=== PATIENT | male | born 1980 | race Caucasian/White ===

== ENCOUNTER 2020-05-24 18:08 | Emergency (ER) | payer MEDICARE, MEDICAID, SELFPAY ==
[2020-05-24 18:19] VITALS: BP 101/69; PULSE 77; RESP 18; TEMP 36.6; O2SAT 98; BMI 25.8
--- NOTE | 2020-05-24 18:24 | ECG_ITS ---
Test Reason : WEAKNESS Blood Pressure : / mmHG Vent. Rate : 067 BPM Atrial Rate : 441 BPM P-R Int : 000 ms QRS Dur : 114 ms QT Int : 426 ms P-R-T Axes : 000 210 128 degrees QTc Int : 450 ms Atrial fibrillation Right superior axis deviation Minimal voltage criteria for LVH, may be normal variant Nonspecific T wave abnormality Abnormal ECG When compared with ECG of 05-FEB-2020 22:57, Heart rate has decreased Referred By: Dolly Doyle Electronically Signed By:VLADIMIR REDMAN MD
--- NOTE | 2020-05-24 18:24 | XR_ITS ---
EXAMINATION: XR CHEST CLINICAL INFORMATION: History of situs inversus. Weakness. Dizziness. COMPARISON: None TECHNIQUE: 2 views of the chest were obtained. FINDINGS: Status post median sternotomy. Cardiac apex is on the right consistent with situs inversus. There is no acute abnormality. No pulmonary vascular congestion. No infiltrate or pleural effusion. There is no pneumothorax. XR/XR chest 2V IMPRESSION: No acute abnormality of chest.
--- NOTE | 2020-05-24 18:33 | ED.DIZZY ---
HPI - Dizziness General Chief Complaint: Dizziness Stated Complaint: weakness Time Seen by Provider: 05/24/20 18:12 Source: patient and EMS Mode of arrival: EMS Limitations: no limitations History of Present Illness HPI Narrative: 40 yo male with past medical history of dextrocardia, mitral valve replacement on coumadin, atrial fibrillation here with complaints of dizziness. Patient tells me he was sitting down stood up quickly and felt nausea, lightheadedness and like his body was shaking. No associated chest pain/palpitations/shortness of breath/abdominal pain or CM. On arrival the patient is feeling somewhat improved. He does have some mild nausea and feeling lightheaded but otherwise is feeling improved. MD elicited complaint: lightheadedness Onset (ago): hour(s) Timing: sudden onset Severity: mild Description: lightheadedness Context: change in medication History of similar symptoms: No Exacerbating factors: movement/ambulation and change in body position Relieving factors: nothing Associated symptoms: nausea Related Data Allergies Allergy/AdvReac Type Severity Reaction Status Date / Time Penicillins Allergy Unknown RASH,NAUSEA Verified 05/24/20 18:25 ,VOMITING Review of Systems Review of Systems: Yes all other systems are reviewed and are negative Constitutional: Constitutional: Reports no additional constitutional complaints, Denies body ache(s), Denies chills, Denies fever(s), Denies headache(s) and Denies weakness Eyes: Eyes: Reports no additional eye complaints and Denies change in vision ENT: Reports system reviewed and no additional complaints, except as documented, Reports dizziness, Denies headache(s), Denies nasal congestion, Denies nasal discharge and Denies neck pain Cardiovascular: Cardiovascular: Reports no additional cardiovascular complaints, Denies chest pain, Denies leg edema and Denies dyspnea Respiratory: Respiratory: Reports no additional respiratory complaints, Denies cough and Denies dyspnea Gastrointestinal: Gastrointestinal: Reports no additional gastrointestinal complaints, Denies abdominal pain, Denies diarrhea, Reports nausea and Denies vomiting Genitourinary: Genitourinary: Denies urinary incontinence Musculoskeletal: Musculoskeletal: Reports no additional musculoskeletal complaints, Denies back pain, Denies arthralgias, Denies joint swelling, Denies neck pain, Denies numbness and Denies tingling Integumentary/Breasts: Skin/Breast: Reports system reviewed and no additional complaints, except as docu and Denies rash Neurologic: Reports system reviewed and no additional complaints, except as documented, Denies Abnormal speech present, Reports dizziness, Denies headache(s), Denies numbness, Denies tingling and Denies weakness PMFSH Past Medical History Attestation statement: The following information was validated with the patient. Source: obtained from family and nursing notes reviewed Medical History Aortic valve disease Social History Social History Alcohol intake: never Smoking Status: Never smoker Use of substances other than those prescribed or required for medical reasons: No Advance Directives: No Advance Directives Information Provided: Yes Physical Exam Vital Signs: Vital Signs: Vital Signs Temp Pulse Resp BP Pulse Ox 05/24/20 21:00 60 17 117/54 L 99 05/24/20 19:25 78 108/66 05/24/20 19:23 81 111/62 05/24/20 18:19 97.9 F 77 18 101/69 98 Body Mass Index 25.8 Const: General: cooperative, healthy appearing, comfortable and no acute distress Orientation/consciousness: patient oriented x3 Limitations: no limitations HENMT: Head: Yes normal to inspection Ears: hearing grossly normal bilaterally General nose exam: Normal external nose present Face and sinus: Yes normal facial exam Mouth: Normal oral and palatal mucosa present Throat: Yes posterior oropharynx normal Eyes: General: appearance normal, both eyes and all related structures Pupils: Equal, round and reactive pupils present Neck: Neck: Yes normal visual inspection Chest: Chest palpation & inspection: normal inspection of the chest Resp: Effort & Inspection: normal respiratory effort Auscultation: clear to auscultation bilaterally Cardio: Rate: regular rate Rhythm: regular rhythm Peripheral pulses: Peripheral pulses 2+ throughout GI: Inspection: Yes normal to inspection Palpation (GI): Soft to palpation and nontender Auscultation: normal bowel sounds Back/Spine/Pelvis: Thoracic/Lumbar Spine: thoracic and lumbar spine normal to inspection Skin: General skin exam: no rashes or lesions noted Neuro: General: patient oriented x3, Normal light touch and pain sensation, no focal motor deficits and normal sensation to monofilament Cranial nerves: Yes CN's II-XII intact bilaterally, Yes Equal, round and reactive pupils present, Yes Bilaterally intact EOM present, Yes Nystagmus not present, Yes Normal facial strength present and Yes Midline tongue present Cognition (Neuro): normal cognition Speech: No Abnormal speech present Gait exam (Neuro): Normal gait present Motor exam (neuro): 5/5 motor strength present throughout Sensory Exam: Normal double simultaneous stimulation for sensation Deep tendon reflexes (DTR's): Right patellar reflex intensity grade: 2+ and Left patellar reflex intensity grade: 2+ Coordination: [id number] test normal and [id number] test normal Extrem: General: Yes normal to inspection Course Course Course Narrative: Pt here with lightheadedness with nausea with position changes. Neuro intact. Will check labs, EKG, CXR, orthostatics. 1944-Labs unremarkable. EKG shows afib with a rate <100. No changes. Orthostatics negative. Troponin just mildly elevated, will plan for repeat 3 hr. No chest pain. 2029- Patient tells me he was very anxious in regards to the election results today, told me he wasn't eating much today. Eating now, feeling improved. Requesting COVID testing. 2099-Sign out to [employer] pending repeat troponin. MDM - Dizziness MDM Narrative Medical decision making narrative: Considered orthostatic hypotension, anemia, electrolyte abnormality, ACS, hypoglycemia Less likely orthostatic hypotension with unremarkable orthostatic vital signs. Less likely anemia with normal differential. Less likely electrolyte abnormality with normal Bmp. Less likely ACS with no EKG changes, no chest pain and 2 troponins unchanged. May be hypoglycemia and patient is eating here with stable blood sugars Lab Data Result diagrams: 05/24/20 18:59 05/24/20 18:59 Labs: Lab Results 05/24/20 05/24/20 05/24/20 Range/Units 18:59 18:59 18:59 WBC 5.2 (4.8-10.8) X10*3/uL RBC 4.91 (4.60-5.80) X10*6/uL Hgb 13.3 L (14.0-18.0) g/dl Hct 40.5 L (42-52) % MCV 82.5 (80-98) fL MCH 27.1 (27.0-33.0) pg MCHC 32.8 (31.0-36.0) g/dl RDW 13.8 (11.0-16.0) % Plt Count 185 (160-400) X10*3/uL MPV 10.0 (9.4-12.4) fL Immature Gran % (Auto) 0.2 (0.0-0.4) % Neut % (Auto) 54.8 (45-73) % Lymph % (Auto) 29.6 (20-40) % [place] % (Auto) 11.9 H (2-11) % Eos % (Auto) 3.1 (0-4) % Baso % (Auto) 0.4 (0-2) % Lymph # (Auto) 1.5 (1.2-4.9) X10*3/uL [place] # (Auto) 0.6 (0.1-1.2) X10*3/uL Eos # (Auto) 0.2 (0.0-0.4) X10*3/uL Baso # (Auto) 0.0 (0.0-0.2) X10*3/uL Abs Immat Gran (auto) 0.01 (0.00-0.03) X10*3/uL Absolute Neuts (auto) 2.9 (2.0-8.3) X10*3/uL Absolute Nucleated RBC 0.000 (0.0-0.012) X10*3/uL Nucleated RBC % (auto) 0.0 (0.0-0.2) /100WBC PT 38.9 H (10.8-13.0) SEC INR 3.2 H (0.9-1.1) Sodium 135 (135-145) mmol/L Potassium 3.7 (3.3-5.1) mmol/l Chloride 104 (96-108) mmol/L Carbon Dioxide 23 (22-29) mmol/L Anion Gap 12 (12-20) BUN 14 (9-16) mg/dL Creatinine 0.73 (0.5-1.4) mg/dL Estim Creat Clear Calc 131.8 Estimated GFR > 60 Random Glucose 107 (60-115) mg/dL Calcium 9.0 (8.4-10.2) mg/dL Magnesium 1.7 (1.6-2.6) mg/dL Total Bilirubin 0.6 (0.0-1.0) mg/dL Direct Bilirubin 0.2 (0.0-0.5) mg/dL AST 46 H (5-37) U/L ALT 65 H (0-40) U/L Alkaline Phosphatase 88 (39-117) U/L Troponin I High Sens (<3.5-35.0) ng/L Total Protein 7.4 (6.5-8.0) g/dL Albumin 4.3 (3.5-5.0) g/dL 05/24/20 Range/Units 18:59 WBC (4.8-10.8) X10*3/uL RBC (4.60-5.80) X10*6/uL Hgb (14.0-18.0) g/dl Hct (42-52) % MCV (80-98) fL MCH (27.0-33.0) pg MCHC (31.0-36.0) g/dl RDW (11.0-16.0) % Plt Count (160-400) X10*3/uL MPV (9.4-12.4) fL Immature Gran % (Auto) (0.0-0.4) % Neut % (Auto) (45-73) % Lymph % (Auto) (20-40) % [place] % (Auto) (2-11) % Eos % (Auto) (0-4) % Baso % (Auto) (0-2) % Lymph # (Auto) (1.2-4.9) X10*3/uL [place] # (Auto) (0.1-1.2) X10*3/uL Eos # (Auto) (0.0-0.4) X10*3/uL Baso # (Auto) (0.0-0.2) X10*3/uL Abs Immat Gran (auto) (0.00-0.03) X10*3/uL Absolute Neuts (auto) (2.0-8.3) X10*3/uL Absolute Nucleated RBC (0.0-0.012) X10*3/uL Nucleated RBC % (auto) (0.0-0.2) /100WBC PT (10.8-13.0) SEC INR (0.9-1.1) Sodium (135-145) mmol/L Potassium (3.3-5.1) mmol/l Chloride (96-108) mmol/L Carbon Dioxide (22-29) mmol/L Anion Gap (12-20) BUN (9-16) mg/dL Creatinine (0.5-1.4) mg/dL Estim Creat Clear Calc Estimated GFR Random Glucose (60-115) mg/dL Calcium (8.4-10.2) mg/dL Magnesium (1.6-2.6) mg/dL Total Bilirubin (0.0-1.0) mg/dL Direct Bilirubin (0.0-0.5) mg/dL AST (5-37) U/L ALT (0-40) U/L Alkaline Phosphatase (39-117) U/L Troponin I High Sens 6.2 (<3.5-35.0) ng/L Total Protein (6.5-8.0) g/dL Albumin (3.5-5.0) g/dL Imaging Data Chest x-ray: Attestation: I personally reviewed and interpreted this imaging study as follows: Radiologist's impression: EXAMINATION: XR CHEST CLINICAL INFORMATION: History of situs inversus. Weakness. Dizziness. COMPARISON: None TECHNIQUE: 2 views of the chest were obtained. FINDINGS: Status post median sternotomy. Cardiac apex is on the right consistent with situs inversus. There is no acute abnormality. No pulmonary vascular congestion. No infiltrate or pleural effusion. There is no pneumothorax. XR/XR chest 2V IMPRESSION: No acute abnormality of chest. ECG Data Attestation: I personally reviewed and interpreted this ECG as follows: ECG interpretation date: 05/24/20 ECG interpretation time: 18:49 Interpretation: afib with rate 67, normal qrs, normal st, normal qt Discharge Plan Discharge Clinical Impression: Weakness Patient Disposition: Home, Self-Care Instructions: Weakness (ED) Additional Instructions: Drink plenty of fluids. Change positions slowly Eat a well-balanced diet with frequent meals. Continue all your medications. We have tested you today for COVID 19. Test results take 1-2 days and we will call you with the results negative or positive. Take tylenol or motrin if able as needed for pain or fever. Stay well hydrated with fluids like water, gatorade and/or powerade. Wash hands at home. If living with others try to self isolate if possible. If unable wear a mask around others in your home and wash hands frequently. If COVID test is positive you will need to self isolate for a total of 14 days from when your symptoms started. You may return to work sooner if testing is negative and all symptoms resolved >72 hours. You should return to the emergency department for severe shortness of breath, chest pain or fever which does not respond to both tylenol and motrin at home. Referrals: Physician,Unknown [Primary Care Provider] - 2 days
[2020-05-24 19:04] LABS: MANUAL DIFF FLAG NO
[2020-05-24 19:05] LABS: Basophils Percent Auto 0.4 % (0-2); Eosinophils Absolute Auto 0.2 X10*3/uL (0.0-0.4); Eosinophils Percent Auto 3.1 % (0-4); Hematocrit 40.5 % (42-52); Hemoglobin 13.3 g/dl (14.0-18.0); Imm Gran Abs Auto 0.01 X10*3/uL (0.00-0.03); Imm Gran Pct Auto 0.2 % (0.0-0.4); Lymphocytes Absolute Auto 1.5 X10*3/uL (1.2-4.9); Lymphocytes Percent Auto 29.6 % (20-40); Mean Corpuscular HGB Conc 32.8 g/dl (31.0-36.0); Mean Corpuscular Hemoglobin 27.1 pg (27.0-33.0); Mean Corpuscular Volume 82.5 fL (80-98); Monocytes Absolute Auto 0.6 X10*3/uL (0.1-1.2); Monocytes Percent Auto 11.9 % (2-11); Neutrophils Absolute Auto 2.9 X10*3/uL (2.0-8.3); Neutrophils Percent Auto 54.8 % (45-73); Platelet Count 185 X10*3/uL (160-400); Red Blood Count 4.91 X10*6/uL (4.60-5.80); Red Cell Distribution Width 13.8 % (11.0-16.0); White Blood Count 5.2 X10*3/uL (4.8-10.8)
[2020-05-24] MEDS: 0.9 % Sodium Chloride 1,000 ML 999 ML IV (19:08)
[2020-05-24 19:23] VITALS: BP 111/62; BP 111/63; PULSE 69; PULSE 81
[2020-05-24 19:25] VITALS: BP 108/66; PULSE 78
[2020-05-24 19:27] LABS: Alanine Aminotransferase 65 U/L (0-40); Albumin Level 4.3 g/dL (3.5-5.0); Alkaline Phosphatase 88 U/L (39-117); Anion Gap 12 (12-20); Aspartate Amino Transferase 46 U/L (5-37); Bilirubin Direct 0.2 mg/dL (0.0-0.5); Bilirubin Total 0.6 mg/dL (0.0-1.0); Blood Urea Nitrogen 14 mg/dL (9-16); Carbon Dioxide 23 mmol/L (22-29); Chloride 104 mmol/L (96-108); Creatinine Clr Calc Pharmacy 131.8; Estimated Glomerular Filt Rate > 60; Glucose Random 107 mg/dL (60-115); INTERNATIONAL NORM RATIO 3.2 (0.9-1.1); Magnesium 1.7 mg/dL (1.6-2.6); Potassium 3.7 mmol/l (3.3-5.1); Prothrombin Time 38.9 SEC (10.8-13.0); Sodium 135 mmol/L (135-145); Total Protein 7.4 g/dL (6.5-8.0)
[2020-05-24 19:31] LABS: Troponin-I High Sensitivity 6.2 ng/L (<3.5-35.0)
[2020-05-24] MEDS: Acetaminophen 325 MG TABLET 975 MG PO (20:30)
[2020-05-24 21:00] VITALS: BP 117/54; PULSE 60; RESP 17; O2SAT 99
[2020-05-24 22:53] LABS: Troponin-I High Sensitivity 5.4 ng/L (<3.5-35.0)
[2020-05-24 23:16] VITALS: BP 117/76; PULSE 77; RESP 16; TEMP 37; O2SAT 98
== END 2020-05-24 23:18 | disposition home or self-care (01) ==
PROVIDERS: Nurse Practitioner Family; Emergency Provider Internal Medicine
DX: R42 Dizziness and giddiness (principal); R53.1 Weakness; Z20.828 Contact with and (suspected) exposure to other viral communicable diseases; Z79.01 Long term (current) use of anticoagulants; Z79.899 Other long term (current) drug therapy
CPT/HCPCS: 36415; 71046; 80048; 80076; 83735; 84484; 85025; 85610; 93005; 96360; 99284; U0003

== ENCOUNTER 2020-05-29 10:47 | Inpatient (IN) | payer MEDICARE, MEDICAID, SELFPAY ==
[2020-05-29] VITALS (13 sets, daily range): BP systolic 86–123; BP diastolic 47–68; PULSE 61–125; RESP 16–20; TEMP 36.7–36.9; O2SAT 96–99; BMI 26.6
--- NOTE | 2020-05-29 | CT_ITS ---
EXAMINATION: CT CHEST WITHOUT CONTRAST CLINICAL INFORMATION: Shortness of breath COMPARISON: Chest radiograph 05/24/2020 TECHNIQUE: Multidetector volumetric CT imaging of the chest was done. Axial MIP volume rendering provided. Sagittal and coronal reformatted images were obtained. This CT examination was performed using dose optimization techniques as appropriate, variously including the following: *Automated exposure control *Adjustment of mA and/or kV according to patient size (this includes techniques or standardized protocols for targeted exams where dose is matched to indication/reason for exam; i.e. extremities or head) *Use of iterative reconstruction technique DLP: 283 mGy-cm FINDINGS: RECEIVING TEAM MEMBER: Again seen is situs inversus LUNGS: The lungs are clear with no evidence of inflammation or nodules. MEDIASTINUM: The cardiac apex is on the right with the heart in the right chest. The SVC is left-sided. All of these findings are consistent with situs inversus. Patient status post median sternotomy. PLEURA: There is no pleural effusion. No pleural mass or thickening. AXILLA: No lymphadenopathy. UPPER ABDOMEN: Right-sided Polysplenia is present. The liver is on the left. These findings are consistent with situs inversus. OSSEOUS STRUCTURES: Unremarkable. CT/CT chest wo con IMPRESSION: The lungs are clear with no pulmonary cause seen for the patient's shortness of breath. Again noted is situs inversus
--- NOTE | 2020-05-29 11:09 | CT_ITS ---
EXAMINATION: CT HEAD WITHOUT CONTRAST CLINICAL INFORMATION: Dizziness. On Coumadin COMPARISON: None TECHNIQUE: Contiguous axial imaging was performed from the skull base to vertex without intravenous administration of contrast. This CT examination was performed using dose optimization techniques as appropriate, variously including the following: *Automated exposure control *Adjustment of mA and/or kV according to patient size (this includes techniques or standardized protocols for targeted exams where dose is matched to indication/reason for exam; i.e. extremities or head) *Use of iterative reconstruction technique DLP: 738 mGy-cm FINDINGS: There is no intracranial hemorrhage, hematoma, or extra-axial fluid collection. The ventricles are normal in size. There is no hydrocephalus, edema, or mass effect. The [place]-white matter differentiation appears symmetric. There is no visible acute territorial infarct or mass lesion. The calvarium appears intact. There is no pneumocephalus or orbital emphysema. The visualized sinuses and middle ears and mastoid air cells show no significant mucosal thickening. There are no air-fluid levels. CT/CT head/brain wo con IMPRESSION: No acute intracranial abnormality.
--- NOTE | 2020-05-29 11:09 | ED.DIZZY ---
HPI - Dizziness General Chief Complaint: Dizziness Stated Complaint: dizziness Time Seen by Provider: 05/29/20 11:09 Source: patient and EMS Mode of arrival: EMS Limitations: other (vague historian) History of Present Illness MD elicited complaint: dizziness Pertinent past history: other (on coumadin for AVR) Onset (ago): minute(s) (30) Timing: sudden onset Severity: similar to previous episodes Description: sense of movement, room spinning , lightheadedness and off-balance Context: change in body position History of similar symptoms: Yes Exacerbating factors: movement/ambulation and change in body position Relieving factors: rest and keeping eyes closed Associated symptoms: nausea, malaise, weakness and chills Associated neuro symptoms: limb numbness (entire body is numb) Related Data Home Medications Medication Instructions Recorded Confirmed diltiazem HCl 240 mg PO DAILY 05/29/20 05/29/20 lisinopril 5 mg PO DAILY 05/29/20 05/29/20 metoprolol succinate 100 mg PO DAILY 05/29/20 05/29/20 warfarin 5 mg PO DAILY 05/29/20 05/29/20 Allergies Allergy/AdvReac Type Severity Reaction Status Date / Time Penicillins Allergy Unknown RASH,NAUSEA Verified 05/24/20 18:25 ,VOMITING Review of Systems Review of Systems: Constitutional : No Fever, pos Chills, No Fatigue ENT/Mouth : No sore throat, No Rhinorrhea Eyes: No Eye Pain, No Swelling, No Redness Cardiovascular : No Chest Pain, No SOB, No Dyspnea on Exertion, pos palpitations Respiratory : No Cough, No Sputum Gastrointestinal : pos Nausea, No Vomiting, No Diarrhea, No abdominal Pain Genitourinary : No Dysuria, No Urinary Frequency, No Hematuria, Musculoskeletal : No joint pain, No Myalgias, No Joint Swelling Skin : No Skin Lesions, No rash Neuro : pos Weakness, pos diffuse Numbness, No Dizziness, positive Headache Psych : pos Anxiety/Panic, No Depression Heme/Lymph: No Bruising, No Bleeding,No Lymphadenopathy Endocrine : No Polyuria, No Polydipsia All other systems reviewed and are negative [facility] Past Medical History Attestation statement: The following information was validated with the patient. Medical History (Updated 05/29/20 @ 15:52 by Francisca Cast DO) Afib Aortic valve disease Dextrocardia Social History Social History Alcohol intake: never Smoking Status: Never smoker Smoked in Last 30 Days: No Use of substances other than those prescribed or required for medical reasons: No Advance Directives: No Advance Directives Information Provided: Yes Physical Exam Vital Signs: Vital Signs: Last Vital Signs Temp 98.2 F 05/29/20 10:54 Pulse 77 05/29/20 13:54 Resp 20 05/29/20 13:54 BP 96/58 L 05/29/20 13:54 Pulse Ox 99 05/29/20 13:29 Body Mass Index 26.6 Appearance: Alert. Oriented X3. anxious mild acute distress. Eyes: Pupils equal, round and reactive to light. ENT: Pharynx normal. Neck: Normal inspection. Neck supple. CVS: Normal heart rate and rhythm. Pulses normal. Respiratory: No respiratory distress. Breath sounds normal. Abdomen: Soft and nontender. Skin: Skin warm and dry. pale skin color. Normal skin turgor. Extremities: No lower extremity edema. No calf ttp Neuro: Oriented X 3. No motor deficit. No sensory deficit. Course Course Course Narrative: pateint refusing CT scan initially then told how important it was - finally agreed, even given ativan before on EKG patient found to be in afib with RVR IV dilt ordered HR down to 70s afib gtt held at this time, currently asleep HR improved but still very dizzy, does not want to ambulate given INR 3.9 and coumadin use concern for significant injury, further workup needed on dilt and metoprolol at home MDM - Dizziness MDM Narrative Medical decision making narrative: 40 yo male with abrupt onset dizziness and nausea - hx of AVR on coumadin just seen for similar symptoms - worked up at that time felt dizzy then symptoms returned this AM, stat head CT, IV zofran and ativan, dispo per results and findings. Lab Data Result diagrams: 05/29/20 12:10 05/29/20 12:10 Labs: Lab Results 05/29/20 05/29/20 05/29/20 Range/Units 12:10 12:10 12:10 WBC 8.2 (4.8-10.8) X10*3/uL RBC 4.70 (4.60-5.80) X10*6/uL Hgb 12.5 L (14.0-18.0) g/dl Hct 39.3 L (42-52) % MCV 83.6 (80-98) fL MCH 26.6 L (27.0-33.0) pg MCHC 31.8 (31.0-36.0) g/dl RDW 14.2 (11.0-16.0) % Plt Count 192 (160-400) X10*3/uL MPV 10.0 (9.4-12.4) fL Immature Gran % (Auto) 0.5 H (0.0-0.4) % Neut % (Auto) 77.5 H (45-73) % Lymph % (Auto) 12.0 L (20-40) % [place] % (Auto) 8.5 (2-11) % Eos % (Auto) 1.1 (0-4) % Baso % (Auto) 0.4 (0-2) % Lymph # (Auto) 1.0 L (1.2-4.9) X10*3/uL [place] # (Auto) 0.7 (0.1-1.2) X10*3/uL Eos # (Auto) 0.1 (0.0-0.4) X10*3/uL Baso # (Auto) 0.0 (0.0-0.2) X10*3/uL Abs Immat Gran (auto) 0.04 H (0.00-0.03) X10*3/uL Absolute Neuts (auto) 6.4 (2.0-8.3) X10*3/uL Absolute Nucleated RBC 0.000 (0.0-0.012) X10*3/uL Nucleated RBC % (auto) 0.0 (0.0-0.2) /100WBC PT 47.6 H D (10.8-13.0) SEC INR 3.9 H (0.9-1.1) APTT 48.0 H (24.1-38.0) SEC Sodium 137 (135-145) mmol/L Potassium 4.0 (3.3-5.1) mmol/l Chloride 108 (96-108) mmol/L Carbon Dioxide 23 (22-29) mmol/L Anion Gap 10 L (12-20) BUN 16 (9-16) mg/dL Creatinine 0.82 (0.5-1.4) mg/dL Estim Creat Clear Calc 117.3 Estimated GFR > 60 Random Glucose 162 H D (60-115) mg/dL Calcium 9.0 (8.4-10.2) mg/dL Magnesium 1.6 (1.6-2.6) mg/dL Troponin I High Sens (<3.5-35.0) ng/L Coronavirus (PCR) (Negative) 05/29/20 05/29/20 Range/Units 12:10 14:26 WBC (4.8-10.8) X10*3/uL RBC (4.60-5.80) X10*6/uL Hgb (14.0-18.0) g/dl Hct (42-52) % MCV (80-98) fL MCH (27.0-33.0) pg MCHC (31.0-36.0) g/dl RDW (11.0-16.0) % Plt Count (160-400) X10*3/uL MPV (9.4-12.4) fL Immature Gran % (Auto) (0.0-0.4) % Neut % (Auto) (45-73) % Lymph % (Auto) (20-40) % [place] % (Auto) (2-11) % Eos % (Auto) (0-4) % Baso % (Auto) (0-2) % Lymph # (Auto) (1.2-4.9) X10*3/uL [place] # (Auto) (0.1-1.2) X10*3/uL Eos # (Auto) (0.0-0.4) X10*3/uL Baso # (Auto) (0.0-0.2) X10*3/uL Abs Immat Gran (auto) (0.00-0.03) X10*3/uL Absolute Neuts (auto) (2.0-8.3) X10*3/uL Absolute Nucleated RBC (0.0-0.012) X10*3/uL Nucleated RBC % (auto) (0.0-0.2) /100WBC PT (10.8-13.0) SEC INR (0.9-1.1) APTT (24.1-38.0) SEC Sodium (135-145) mmol/L Potassium (3.3-5.1) mmol/l Chloride (96-108) mmol/L Carbon Dioxide (22-29) mmol/L Anion Gap (12-20) BUN (9-16) mg/dL Creatinine (0.5-1.4) mg/dL Estim Creat Clear Calc Estimated GFR Random Glucose (60-115) mg/dL Calcium (8.4-10.2) mg/dL Magnesium (1.6-2.6) mg/dL Troponin I High Sens 6.2 (<3.5-35.0) ng/L Coronavirus (PCR) POSITIVE A (Negative) ECG Data Attestation: I personally reviewed and interpreted this ECG as follows: ECG interpretation date: 05/29/20 ECG interpretation time: 12:04 Interpretation: Rate: 140s Rhythm: afib with RVR [place]: RAD, LVH Normal QRS complex. ST T wave : nonspecific qTC: prolonged prior studies: no acute ischemia The study has been interpreted contemporaneously by me. . Critical Care Time Critical Care Time Critical Care Time: Yes Total Critical Care Time: 35 Attestation: dilt gtt, CT scan, IV ativan I attest to this time spent taking care of the patient Discharge Plan Discharge Clinical Impression: Dizziness, Atrial fibrillation, COVID-19 Patient Disposition: Admitted As Inpatient
--- NOTE | 2020-05-29 11:12 | ECG_ITS ---
Test Reason : DIZZINESS Blood Pressure : / mmHG Vent. Rate : 149 BPM Atrial Rate : 178 BPM P-R Int : 000 ms QRS Dur : 098 ms QT Int : 326 ms P-R-T Axes : 000 210 082 degrees QTc Int : 513 ms Atrial fibrillation with rapid ventricular response Right superior axis deviation Minimal voltage criteria for LVH, may be normal variant Nonspecific ST and T wave abnormality Possible limb lead reversal Abnormal ECG When compared with ECG of 24-MAY-2020 18:49, Vent. rate has increased BY 82 BPM Non-specific change in ST segment in Anterior leads Referred By: Francisca Cast Electronically Signed By:VLADIMIR REDMAN MD
[2020-05-29] MEDS: 0.9 % Sodium Chloride 500 ML IV ×2 (11:26→14:46)
[2020-05-29] MEDS: ondansetron HCL 4 MG/2 ML VIAL IVPUSH (11:27)
[2020-05-29] MEDS: LORazepam 2 MG/ML VIAL 1 MG IVPUSH (11:27)
--- NOTE | 2020-05-29 11:43 | PC.NURSE ---
pt unable to tolerate ct and orthos. pt states he is too dizzy to to be in any other position than upright. pt hyperventilating.
--- NOTE | 2020-05-29 11:55 | PC.NURSE ---
pt to ct on tele
[2020-05-29] MEDS: dilTIAZem HCL 50 MG/10 ML VIAL 10 MG IVPUSH (12:17)
[2020-05-29 12:18] LABS: MANUAL DIFF FLAG NO
[2020-05-29 12:22] LABS: Basophils Percent Auto 0.4 % (0-2); Eosinophils Absolute Auto 0.1 X10*3/uL (0.0-0.4); Eosinophils Percent Auto 1.1 % (0-4); Hematocrit 39.3 % (42-52); Hemoglobin 12.5 g/dl (14.0-18.0); Imm Gran Abs Auto 0.04 X10*3/uL (0.00-0.03); Imm Gran Pct Auto 0.5 % (0.0-0.4); Mean Corpuscular HGB Conc 31.8 g/dl (31.0-36.0); Mean Corpuscular Hemoglobin 26.6 pg (27.0-33.0); Mean Corpuscular Volume 83.6 fL (80-98); Monocytes Absolute Auto 0.7 X10*3/uL (0.1-1.2); Monocytes Percent Auto 8.5 % (2-11); Neutrophils Absolute Auto 6.4 X10*3/uL (2.0-8.3); Neutrophils Percent Auto 77.5 % (45-73); Platelet Count 192 X10*3/uL (160-400); Red Cell Distribution Width 14.2 % (11.0-16.0); White Blood Count 8.2 X10*3/uL (4.8-10.8)
[2020-05-29 12:23] LABS: INTERNATIONAL NORM RATIO 3.9 (0.9-1.1); Prothrombin Time 47.6 SEC (10.8-13.0)
[2020-05-29 12:43] LABS: Blood Urea Nitrogen 16 mg/dL (9-16); Creatinine Clr Calc Pharmacy 117.3; Estimated Glomerular Filt Rate > 60; Glucose Random 162 mg/dL (60-115); Magnesium 1.6 mg/dL (1.6-2.6)
[2020-05-29 12:47] LABS: Troponin-I High Sensitivity 6.2 ng/L (<3.5-35.0)
[2020-05-29 12:56] LABS: Anion Gap 10 (12-20); Carbon Dioxide 23 mmol/L (22-29); Chloride 108 mmol/L (96-108); Sodium 137 mmol/L (135-145)
[2020-05-29] MEDS: dilTIAZem HCL 125 MG in 0.9 % Sodium Chloride 100 ML IVCONT (13:28)
[2020-05-29 15:42] LABS: SARS COV2 PCR INHOUSE POSITIVE (Negative)
--- NOTE | 2020-05-29 16:22 | P.HPHOSP_ITS ---
History of Present Illness Date of Service: 05/29/20 <Maritza Hurtado NP - Last Filed: 05/29/20 16:30> Chief Complaint: Dizziness <Maritza Hurtado NP - Last Filed: 05/29/20 16:30> 40 year man presented to the ER with complaints of dizziness. He reports this started approximately 4 days ago. He presented to the ER with lightheadedness feeling off balance and stated that the room was spinning. He h as had episodes like this in the past. He has a history of atrial fibrillation and in the ER he was found to be in atrial fibrillation with rapid ventricular response. He was given a dose of IV diltiazem which did bring his heart rate down to the 70s. His heart rate improved however he continued to feel dizzy and had some nausea. Brain CT was negative for any acute bleed. INR was elevated at 3.9 patient is on Coumadin. He was not noted to have any fever leukocytosis. His blood pressure was low and 96/58. Chest x-ray was negative for any consolidation or effusion. His COVID-19 was positive. He had no complaints of fever, cough. In the ER he was given a dose of diltiazem, Ativan, IV fluids, Zofran. He will be admitted for further management treatment of dizziness and initial treatment of atrial fibrillation with rapid ventricular response. <Maritza Hurtado NP - Last Filed: 05/29/20 16:30> Review of Systems Review of Systems: Denies any recent fever chills or decrease in appetite respiratory denies any shortness of breath coverage production cardiovascular is adjustment of any PND or edema gastrointestinal denies any dysphagia abdominal pain nausea vomiting or diarrhea genitourinary denies any dysuria frequency or hematuria musculoskeletal denies any joint pain or swelling neuropsych denies any weakness or seizures all other systems reviewed are negative <Maritza Hurtado NP - Last Filed: 05/29/20 16:30> [facility] Medical History: Medical History Afib Aortic valve disease Dextrocardia <Maritza Hurtado NP - Last Filed: 05/29/20 16:30> Pertinent family history: Denies cardiac disease <Maritza Hurtado NP - Last Filed: 05/29/20 16:30> Social History: Social History Household Members: Spouse Housing: Apartment Alcohol intake: never Smoking Status: Never smoker Advance Directives: No Advance Directives Information Provided: No service: No Current occupational status: disabled <Maritza Hurtado NP - Last Filed: 05/29/20 16:30> Meds Allergies/Adverse reactions: Allergies Allergy/AdvReac Type Severity Reaction Status Date / Time Penicillins Allergy Unknown RASH,NAUSEA Verified 05/24/20 18:25 ,VOMITING <Maritza Hurtado NP - Last Filed: 05/29/20 16:30> Home medications: Home Medications Medication Instructions Recorded Confirmed Type lisinopril 5 mg PO DAILY 05/29/20 05/29/20 History warfarin 5 mg PO DAILY 05/29/20 05/29/20 History <Maritza Hurtado NP - Last Filed: 05/29/20 16:30> Physical Exam Vital Signs and Narrative: Vital Signs: Last Vital Signs Temp 98.2 F 05/29/20 10:54 Pulse 77 05/29/20 13:54 Resp 20 05/29/20 13:54 BP 96/58 L 05/29/20 13:54 Pulse Ox 99 05/29/20 13:29 Body Mass Index 26.6 <Maritza Hurtado NP - Last Filed: 05/29/20 16:30> Appearing in no acute distress head is normocephalic atraumatic eyes pupils are PERRLA sclera is anicteric. Nystagmus mouth throat mucous membranes are intact and moist neck is supple no lymphadenopathy, no JVD noted lung sounds are clear to auscultation heart irregularly irregular positive bowel sounds, abdomen is soft, nontender neuro patient is alert x3, no focal deficits <Maritza Hurtado NP - Last Filed: 05/29/20 16:30> Results Labs CBC and Chem 7: : 05/30/20 06:04 05/30/20 06:03 <Maritza Hurtado NP - Last Filed: 05/29/20 16:30> Labs: Laboratory Results - last 24 hr 05/29/20 05/29/20 05/29/20 12:10 12:10 12:10 MCV 83.6 MCH 26.6 L MCHC 31.8 RDW 14.2 Plt Count 192 MPV 10.0 Immature Gran % (Auto) 0.5 H Neut % (Auto) 77.5 H Lymph % (Auto) 12.0 L [place] % (Auto) 8.5 Eos % (Auto) 1.1 Baso % (Auto) 0.4 Lymph # (Auto) 1.0 L [place] # (Auto) 0.7 Eos # (Auto) 0.1 Baso # (Auto) 0.0 Abs Immat Gran (auto) 0.04 H Absolute Neuts (auto) 6.4 Absolute Nucleated RBC 0.000 Nucleated RBC % (auto) 0.0 PT 47.6 H D INR 3.9 H APTT 48.0 H Anion Gap 10 L Estim Creat Clear Calc 117.3 Estimated GFR > 60 Random Glucose 162 H D Calcium 9.0 Magnesium 1.6 Troponin I High Sens Coronavirus (PCR) 05/29/20 05/29/20 12:10 14:26 MCV MCH MCHC RDW Plt Count MPV Immature Gran % (Auto) Neut % (Auto) Lymph % (Auto) [place] % (Auto) Eos % (Auto) Baso % (Auto) Lymph # (Auto) [place] # (Auto) Eos # (Auto) Baso # (Auto) Abs Immat Gran (auto) Absolute Neuts (auto) Absolute Nucleated RBC Nucleated RBC % (auto) PT INR APTT Anion Gap Estim Creat Clear Calc Estimated GFR Random Glucose Calcium Magnesium Troponin I High Sens 6.2 Coronavirus (PCR) POSITIVE A <Maritza Hurtado NP - Last Filed: 05/29/20 16:30> Imaging Radiologist's Impressions: Impressions Head CT 05/29/20 11:09 IMPRESSION: No acute intracranial abnormality. <Maritza Hurtado NP - Last Filed: 05/29/20 16:30> Assessment and Plan (1) Atrial fibrillation: Qualifiers: Atrial fibrillation type: paroxysmal Qualified Code(s): I48 .0 - Paroxysmal atrial fibrillation <Maritza Hurtado NP - Last Filed: 05/29/20 16:30> Status: Acute <Maritza Hurtado NP - Last Filed: 05/29/20 16:30> (2) COVID-19: Status: Acute <Maritza Hurtado NP - Last Filed: 05/29/20 16:30> (3) Dizziness: Status: Acute <Maritza Hurtado NP - Last Filed: 05/29/20 16:30> 40-year-old man admitted with atrial fibrillation with rapid ventricular response. He did improve with IV Cardizem. He continues to have episodes dizziness. Brain CT is negative for bleed. He does have some nystagmus noted. He was also noted to be hypotensive. He was also found to be COVID-19 positive without any respiratory symptoms. Atrial fibrillation. Regular rate at this point. Continue diltiazem, metoprolol and hold warfarin today due to supratherapeutic INR. COVID-19. No respiratory symptoms, will have ID see him. Supratherapeutic INR. Hold warfarin for today, check PT INR daily. Hypotension. May be contributing to some of his dizziness. Check orthostatic blood pressures. Hold lisinopril. Dizziness. Unknown etiology at this time. Consider meclizine. Normocytic anemia. No signs of bleeding. Stable. DVT prophylaxis with warfarin. Case discussed with Dr. Levine Full code <Maritza Hurtado NP - Last Filed: 05/29/20 16:30>
[2020-05-29 16:31] LABS: C Reactive Protein 0.25 mg/dL (< or = 0.50); Lactate Dehydrogenase 156 U/L (118-273)
[2020-05-29 16:53] LABS: Ferritin 147 ng/mL (20-250)
[2020-05-29 17:13] LABS: Procalcitonin 0.03 ng/mL
--- NOTE | 2020-05-29 17:44 | P.EN_ITS ---
Event Note Date of Service: 05/29/2020 Event Note: Addendum to history and physical by VAUDEVILLE ACTOR Bryant
--- NOTE | 2020-05-29 18:11 | PC.NURSE ---
rr 18 hr 71 o2 sat 98%
--- NOTE | 2020-05-29 18:53 | PC.NURSE ---
Report taken from fabiana Mcclain RN resuming care.
--- NOTE | 2020-05-29 19:00 | PC.NURSE ---
This RN calling the lab inquiring about the pending DDimer, lab able to add DDimer to previous specimen.
[2020-05-29 19:10] LABS: D Dimer < 200 NG/ML
--- NOTE | 2020-05-29 19:22 | PC.NURSE ---
Per hospitalist to hang a liter of NS due to hypotension. This RN discussing admit orders with hospitalist.
--- NOTE | 2020-05-29 20:07 | PC.NURSE ---
IVF infusing, pt requesting PO intake. Pt provided with 2 ham sandwiches, pudding and gingerale. Pt continues reporting weakness/dizziness at this time, denies pain. Continue to monitor.
--- NOTE | 2020-05-29 20:44 | PC.NURSE ---
Pt resting in bed, IVFs complete. Pt reporting a CM, describes it as a frontal CM, 02/27. Pt requesting Tylenol. Hospitalist notified via tiger. VSS. Continue to monitor.
[2020-05-29] MEDS: Acetaminophen 325 MG TABLET 650 MG PO (21:17)
--- NOTE | 2020-05-29 21:24 | PC.NURSE ---
Per mechanical engineer, pt has had a bed on [facility] since 1700 but it was not crossing over to the tracker screens. [facility] never calling for a report for the last 4.5 hours. This RN calling [facility] trying to give report, per [facility], the receiving RN is off the unit at this time and will call back.
--- NOTE | 2020-05-29 21:54 | PC.NURSE ---
This RN calling [facility] again to give report but unable to reach receiving RN. honey blender aware.
--- NOTE | 2020-05-29 22:21 | PC.NURSE ---
this float rn gave patient report.
--- NOTE | 2020-05-29 22:51 | PC.NURSE ---
PT ADMITTED TO [facility] AT 225/ ALERT AND ORIENTED COLOR GOOD STILL STATES HE DOES NOT FEEL WELL PHYSICAL ASSESSMENT NEG LUNGS CLEAR BUT PT C/O SOB MONITOR A FIB BP SOFT
[2020-05-30] MEDS: 0.9 % Sodium Chloride 500 ML 1000 ML IV (00:05)
[2020-05-30] MEDS: 0.9 % Sodium Chloride Flush 3 ML SYRINGE IVFLUSH ×2 (00:58→08:47)
[2020-05-30 03:59] VITALS: BP 99/56; PULSE 74; RESP 18; TEMP 36.8; O2SAT 95
[2020-05-30 06:58] LABS: MANUAL DIFF FLAG NO
[2020-05-30 07:13] LABS: Basophils Percent Auto 0.3 % (0-2); Eosinophils Absolute Auto 0.2 X10*3/uL (0.0-0.4); Hematocrit 36.1 % (42-52); Hemoglobin 11.4 g/dl (14.0-18.0); Imm Gran Abs Auto 0.03 X10*3/uL (0.00-0.03); Imm Gran Pct Auto 0.5 % (0.0-0.4); Lymphocytes Absolute Auto 1.2 X10*3/uL (1.2-4.9); Lymphocytes Percent Auto 19.2 % (20-40); Mean Corpuscular HGB Conc 31.6 g/dl (31.0-36.0); Mean Corpuscular Hemoglobin 26.5 pg (27.0-33.0); Mean Platelet Volume 10.4 fL (9.4-12.4); Monocytes Absolute Auto 0.8 X10*3/uL (0.1-1.2); Neutrophils Absolute Auto 4.2 X10*3/uL (2.0-8.3); Platelet Count 188 X10*3/uL (160-400); Red Cell Distribution Width 14.2 % (11.0-16.0); White Blood Count 6.4 X10*3/uL (4.8-10.8)
[2020-05-30 07:17] LABS: Prothrombin Time 48.3 SEC (10.8-13.0)
[2020-05-30 07:36] LABS: Anion Gap 9 (12-20); Blood Urea Nitrogen 14 mg/dL (9-16); Calcium 8.5 mg/dL (8.4-10.2); Carbon Dioxide 26 mmol/L (22-29); Chloride 108 mmol/L (96-108); Creatinine Clr Calc Pharmacy 121.8; Estimated Glomerular Filt Rate > 60; Glucose Random 89 mg/dL (60-115); Potassium 4.3 mmol/l (3.3-5.1); Sodium 139 mmol/L (135-145)
[2020-05-30 07:41] VITALS: BP 103/55; PULSE 78; RESP 20; TEMP 37.1; O2SAT 97
[2020-05-30 07:41] LABS: Magnesium 1.9 mg/dL (1.6-2.6)
[2020-05-30 07:58] LABS: Thyroid Stimulating Hormone 0.83 uIU/mL (0.32-4.0)
[2020-05-30 08:47] VITALS: BP 103/55; PULSE 78
[2020-05-30] MEDS: Metoprolol Succinate ER 100 MG TAB.ER.24H PO (08:47)
[2020-05-30] MEDS: dilTIAZem HCL CD 240 MG CAP.ER.DEG PO (08:47)
--- NOTE | 2020-05-30 09:41 | MHC.CM.PN ---
IMM 05/30/20 Male 40 DX COVID +, afib rvr dizziness lives with . He is independent all functional mobility. PCP ie DR Mohamud Lyle [id number] [facility], confirmed by Pharmacy. DP home no services family transport. CM will follow to assess for change in DC needs.
[2020-05-30 09:55] VITALS: BP 103/55; PULSE 78
[2020-05-30 12:00] VITALS: BP 105/53; PULSE 86; RESP 18; TEMP 36.9; O2SAT 98
--- NOTE | 2020-05-30 14:02 | W.MHC.F2F ---
Service Date Service Date: 05/30/20 Encounter Date of encounter: 05/30/20 Reasons for Services Reason for care home: neurological assessment, monitoring of PT/INR, medication management, medication treatment and teach disease management Reason for physical therapy: other (vestibular rehabilitation) Homebound: Leaving the home is medically contraindicated at this time without the asist of a device and/or another person due th the listed conditions above and below. Reason homebound: immunosuppression / infection risk Homebound supporting statement: Patient was admitted to the [facility] unit 05/29-05/30/20 for peripheral vertigo and COVID-19 infection. Certification: Based on the above findings, I certify that this patient is confined to the home and needs intermittent care home care, physical therapy and/or speech therapy, or continues to need occupational therapy. The patient is under my care, and I have initiated the establishment of the plan of care. The patient will be followed by a physician who will periodically review the plan of care.
--- NOTE | 2020-05-30 14:07 | PM.EVENT ---
Event Note Date of Service: 05/29/20 Event Note: Addendum to history and physical by GANG SUPERVISOR Maritza Hurtado. I interviewed and examined the patient. I discussed their presentation and management with the mid-level provider. I reviewed the history and physical and agree with the documentation, with the following additions and corrections: 40yo M with situs inversus/dextrocardia, atrial fibrillation on warfarin anticoagulation presenting to ED with 4 days of dizziness defined as vertigo rather than lightheadedness. In ED found to be in AF/RVR with rate control achieved 1 dose of IV diltiazem. CTH no acute disease. INR 3.9. Routine screening COVID-19 PCR POSITIVE. Pt denies all respiratory symptoms and denies fever, chills, myalgias, sore throat, rhinitis, rash, headache, or contact with anyone with COVID-19. On exam, afebrile, pulse 77 and irregular, RR 16, BP 96/58, SaO2 99 on RA. horizontal nystagmus noted by GANG SUPERVISOR but I was unable to elicit this. lungs clear, CV irreg irreg, abd soft/NT, no focal neurologic deficits. WBC 8.2 with 12% lymphs CRP 0.25, LDH 156, ferritin 147, PCT 0.03 CXR clear Admit to isolation. PT and meclizine prn vertigo, which has been reported with COVID-19. Maintain isolation. No high-risk features of COVID-19 pneumonia. Hold warfarin for INR 3.9. Continue rate control agents- diltiazem + metoprolol
--- NOTE | 2020-05-30 14:14 | PM.DS ---
DS: Providers Provider Date of admission: 05/29/20 16:34 Primary care physician: Mohamud Lyle MD DS: Diagnosis Discharge Diagnosis (1) Atrial fibrillation: Status: Acute (2) COVID-19: Status: Acute (3) Vertigo, peripheral: Status: Acute (4) Supratherapeutic INR: Status: Acute DS: Summary Hospital Course Hospital Course: The patient was admitted to the isolation unit on telemetry. Vertigo was treated with meclizine and canalith repositioning maneuvers with improvement. Ventricular rate remained well controlled. last echocardiogram in September of 2019 at [facility] showed depressed EF of 35%; therefore diltiazem was discontinued, and his metoprolol succinate dosage was increased from 100 mg to 200 mg daily. Warfarin was held for elevated INR and he should undergo daily INR checks until his INR is less than 3, at which point warfarin can be resumed. He should follow-up with his aircraft engine specialist in 2 weeks. Home visiting nurse services were set up for INR monitoring as well as vestibular physical therapy. Vertigo has been reported as a neurologic manifestation of COVID-19. The patient had no respiratory symptoms, was not hypoxic and had no infiltrate on CT of the chest. Inflammatory markers were reassuringly normal. Isolation for 10 days after the positive PCR test for COVID-19 was advised. Time Spent with Patient Time attestation: Total time spent providing and/or coordinating discharge services: 35 Discharge coordination time: Greater than 30 minutes Physical Exam Vital Signs: Vital Signs: Last Vital Signs Temp 98.4 F 05/30/20 12:00 Pulse 86 05/30/20 12:00 Resp 18 05/30/20 12:00 BP 105/53 L 05/30/20 12:00 Pulse Ox 98 05/30/20 12:00 Body Mass Index 26.6 gen: NAD HEENT: sclerae anicteric, moist mucous membranes neck: supple lungs: CTAB CV: heart sounds on R side of chest, irreg irreg abd: soft/NT neuro: no focal findings derm: no rashes DS: Data Data Completed and Pending Labs on day of discharge: Laboratory Tests 05/29/20 05/29/20 05/29/20 12:10 12:10 12:10 WBC 8.2 RBC 4.70 Hgb 12.5 L Hct 39.3 L MCV 83.6 MCH 26.6 L MCHC 31.8 RDW 14.2 Plt Count 192 MPV 10.0 Immature Gran % (Auto) 0.5 H Neut % (Auto) 77.5 H Lymph % (Auto) 12.0 L [place] % (Auto) 8.5 Eos % (Auto) 1.1 Baso % (Auto) 0.4 Lymph # (Auto) 1.0 L [place] # (Auto) 0.7 Eos # (Auto) 0.1 Baso # (Auto) 0.0 Abs Immat Gran (auto) 0.04 H Absolute Neuts (auto) 6.4 Absolute Nucleated RBC 0.000 Nucleated RBC % (auto) 0.0 PT 47.6 H D INR 3.9 H APTT 48.0 H D-Dimer Sodium 137 Potassium 4.0 Chloride 108 Carbon Dioxide 23 Anion Gap 10 L BUN 16 Creatinine 0.82 Estim Creat Clear Calc 117.3 Estimated GFR > 60 Random Glucose 162 H D Calcium 9.0 Magnesium 1.6 Ferritin 147 Lactate Dehydrogenase 156 Troponin I High Sens C-Reactive Protein 0.25 Procalcitonin TSH Coronavirus (PCR) 05/29/20 05/29/20 05/29/20 12:10 12:10 12:56 WBC RBC Hgb Hct MCV MCH MCHC RDW Plt Count MPV Immature Gran % (Auto) Neut % (Auto) Lymph % (Auto) [place] % (Auto) Eos % (Auto) Baso % (Auto) Lymph # (Auto) [place] # (Auto) Eos # (Auto) Baso # (Auto) Abs Immat Gran (auto) Absolute Neuts (auto) Absolute Nucleated RBC Nucleated RBC % (auto) PT INR APTT D-Dimer < 200 Sodium Potassium Chloride Carbon Dioxide Anion Gap BUN Creatinine Estim Creat Clear Calc Estimated GFR Random Glucose Calcium Magnesium Ferritin Lactate Dehydrogenase Troponin I High Sens 6.2 C-Reactive Protein Procalcitonin 0.03 TSH Coronavirus (PCR) 05/29/20 05/30/20 05/30/20 14:26 06:03 06:03 WBC RBC Hgb Hct MCV MCH MCHC RDW Plt Count MPV Immature Gran % (Auto) Neut % (Auto) Lymph % (Auto) [place] % (Auto) Eos % (Auto) Baso % (Auto) Lymph # (Auto) [place] # (Auto) Eos # (Auto) Baso # (Auto) Abs Immat Gran (auto) Absolute Neuts (auto) Absolute Nucleated RBC Nucleated RBC % (auto) PT 48.3 H INR 4.0 H APTT D-Dimer Sodium 139 Potassium 4.3 Chloride 108 Carbon Dioxide 26 Anion Gap 9 L BUN 14 Creatinine 0.79 Estim Creat Clear Calc 121.8 Estimated GFR > 60 Random Glucose 89 D Calcium 8.5 Magnesium Ferritin Lactate Dehydrogenase Troponin I High Sens C-Reactive Protein Procalcitonin TSH Coronavirus (PCR) POSITIVE A 05/30/20 05/30/20 05/30/20 06:03 06:04 06:04 WBC 6.4 RBC 4.30 L Hgb 11.4 L Hct 36.1 L MCV 84.0 MCH 26.5 L MCHC 31.6 RDW 14.2 Plt Count 188 MPV 10.4 Immature Gran % (Auto) 0.5 H Neut % (Auto) 65.0 Lymph % (Auto) 19.2 L [place] % (Auto) 12.0 H Eos % (Auto) 3.0 Baso % (Auto) 0.3 Lymph # (Auto) 1.2 [place] # (Auto) 0.8 Eos # (Auto) 0.2 Baso # (Auto) 0.0 Abs Immat Gran (auto) 0.03 Absolute Neuts (auto) 4.2 Absolute Nucleated RBC 0.000 Nucleated RBC % (auto) 0.0 PT INR APTT D-Dimer Sodium Potassium Chloride Carbon Dioxide Anion Gap BUN Creatinine Estim Creat Clear Calc Estimated GFR Random Glucose Calcium Magnesium 1.9 Ferritin Lactate Dehydrogenase Troponin I High Sens C-Reactive Protein Procalcitonin TSH 0.83 Coronavirus (PCR) CT chest 05/29/20 The lungs are clear with no pulmonary cause seen for the patient's shortness of breath. Again noted is situs inversus CT head 05/29/20 No acute intracranial abnormality. Discharge Plan Discharge Patient Disposition: Home Health Service Referrals: Mohamud Rodríguez MD [Physician] - (in 2 weeks) Physician,Unknown [Primary Care Provider] - Discharge Medications: New metoprolol succinate 200 mg tablet extended release 24 hr 200 mg PO DAILY Qty: 30 RF: 0 meclizine 25 mg Tablet 25 mg PO Q8H PRN (Reason: dizziness) Qty: 30 RF: 0 Continued lisinopril 5 mg Tablet 5 mg PO DAILY RF: 0 Held warfarin 5 mg Tablet 5 mg PO DAILY RF: 0 Hold Instructions: Resume on 06/02/20. Hold until INR <4 Discontinued diltiazem HCl 240 mg Capsule,Extended Release 24hr 240 mg PO DAILY RF: 0 metoprolol succinate 100 mg Tablet Extended Release 24 Hr 100 mg PO DAILY RF: 0 Discharge Orders: Discharge Order (Routine); Ordered 05/30/20 Ordered By: Gian Levine Diet: low salt diet Activity on Discharge: As tolerated Patient Instructions: Viral Pneumonia (DC), Vertigo (DC) Other Ambulatory Orders: Prothrombin Time INR (DAILY) Timeframe: 20200601 Facility: [facility] - Location: Laboratory Ordered By: Gian Levine Prothrombin Time INR (DAILY) Timeframe: 20200602 Facility: [facility] - Location: Laboratory Ordered By: Gian Levine Prothrombin Time INR (DAILY) Timeframe: 20200603 Facility: [facility] - Location: Laboratory Ordered By: Gian Levine Prothrombin Time INR (DAILY) Timeframe: [id number] Facility: [facility] - Location: Laboratory Ordered By: Gian Levine Visit Report Forms: Patient Portal Discharge page Care Plan Goals: relief of vertigo Health Concerns: vertigo, COVID-19, atrial fibrillation Plan of Treatment: take meclizine as needed for vertigo isolate yourself for 10 days from the positive COVID-19 test which was on 05/29/20; thus, until 06/08/20. follow up with your primary care doctor [[facility]] in 1 week. Today your INR is 4, so continue to hold warfarin. INR to be checked daily until <3, then resume warfarin. Stop diltiazem. Increase metoprolol succinate to 200 mg daily. Follow up with your aircraft engine specialist in 2 weeks.
[2020-05-30] MEDS: Acetaminophen 325 MG TABLET 650 MG PO (14:18)
--- NOTE | 2020-05-30 14:38 | MHC.CM.PN ---
DEREK today with [facility] home care for AC therapy management. The patient went [place] [facility] [place].
== END 2020-05-30 15:04 | disposition home health service (06) | DRG 178 ==
LOC: HO.ED 15:55 → HO.IMC 16:59
PROVIDERS: Nurse Practitioner Acute Care; Admitting Provider Family Medicine; Emergency Provider Emergency Medicine; Visit Provider Family Medicine
DX: U07.1 COVID-19 (principal); Q89.3 Situs inversus; H81.399 Other peripheral vertigo, unspecified ear; D64.9 Anemia, unspecified; I48.0 Paroxysmal atrial fibrillation; R79.1 Abnormal coagulation profile; Z88.0 Allergy status to penicillin; Z79.01 Long term (current) use of anticoagulants; Z79.899 Other long term (current) drug therapy
CPT/HCPCS: 36415; 70450; 71250; 80048; 82728; 83615; 83735; 84145; 84443; 84484; 85025; 85379; 85610; 85730; 86140; 93005; 96361; 96365; 96366; 96375; 97162; 99285; 99291; J2060; J2405; U0003

== ENCOUNTER 2020-05-31 17:32 | Emergency (ER) | payer MEDICARE, MEDICAID, SELFPAY ==
[2020-05-31 17:39] VITALS: BP 140/56; PULSE 98; RESP 17; TEMP 37.3; O2SAT 95; BMI 26.2
[2020-05-31 17:45] VITALS: BP 109/63
--- NOTE | 2020-05-31 18:19 | ED.OVERDOSE ---
HPI - Overdose General Chief Complaint: Overdose Stated Complaint: LOW HEART RATE D/T MED ERROR Time Seen by Provider: 05/31/20 18:12 History of Present Illness HPI Narrative: patient is a 40-year-old male accidentally took an extra dose of metoprolol succinate 200 mg at 10:30 this morning. Presents today with some generalized malaise. No fever no chills no coughing or congestion. Patient recently also was diagnosed with coronavirus 19. He was told to do home quarantine. Patient denies any fever or chills. positive generalized weakness. Patient from home. Mild diarrhea noted. No abdominal pain. Related Data Home Medications Medication Instructions Recorded Confirmed lisinopril 5 mg PO DAILY 05/29/20 05/29/20 warfarin 5 mg PO DAILY 05/29/20 05/29/20 Previous Rx's Medication Instructions Recorded meclizine 25 mg PO Q8H PRN #30 tab 05/30/20 metoprolol succinate 200 mg PO DAILY #30 tab 05/30/20 Allergies Allergy/AdvReac Type Severity Reaction Status Date / Time Penicillins Allergy Unknown RASH,NAUSEA Verified 05/24/20 18:25 ,VOMITING Review of Systems Review of Systems: Constitutional: No Weight loss, No Fever, No Chills, No Night Sweats, No Fatigue, No Malaise ENT/Mouth: No Hearing loss, No Ear Pain, No Nasal Congestion, No Sinus Pain, No Hoarseness, No sore throat, No Rhinorrhea, No Swallowing Difficulty Eyes: No Eye Pain, No Swelling, No Redness, No Foreign Body, No Discharge, No Vision Changes Cardiovascular: No Chest Pain, No SOB, No Dyspnea on Exertion, No Orthopnea, No Edema, No Palpitations Respiratory: No Cough, No Sputum, No Wheezing, No Smoke Exposure, No Dyspnea Gastrointestinal: No Nausea, No Vomiting, No Diarrhea, No Constipation, No abdominal Pain, No Hematochezia, No Melena Genitourinary: no irregular bleeding, No Dysuria, No Urinary Frequency, No Hematuria, No Urinary Incontinence, No Urgency, No Flank Pain, No Urinary Flow Changes, No Hesitancy Musculoskeletal: No joint pain, No Myalgias, No Joint Swelling Skin: No Skin Lesions, No rash Neuro: No Weakness, No Numbness, No Paresthesias, No Loss of Consciousness, No Dizziness, No Headache Psych: No Anxiety/Panic, No Depression, No SI/HI/AH/VH, No Social Issues, Heme/Lymph: No Bruising, No Bleeding,No Lymphadenopathy Endocrine: No Polyuria, No Polydipsia, No Temperature Intolerance [facility] Past Medical History Attestation statement: The following information was validated with the patient. Medical History Afib Aortic valve disease Dextrocardia Social History Social History Household Members: Spouse Housing: Apartment Alcohol intake: never Smoking Status: Never smoker Advance Directives: No Advance Directives Information Provided: No service: No Current occupational status: disabled Physical Exam Vital Signs: Vital Signs: Last Vital Signs Temp 99.1 F 05/31/20 17:39 Pulse 78 05/31/20 20:00 Resp 16 05/31/20 20:00 BP 112/68 05/31/20 20:00 Pulse Ox 98 05/31/20 20:00 Body Mass Index 26.2 Appearance: Alert. Oriented X3. No acute distress. Eyes: Pupils equal, round and reactive to light. ENT: Pharynx normal. Neck: Normal inspection. Neck supple. No lymph nodes noted. No crepitus CVS: Irregularly irregular. Pulses normal. Normal S1 and S2 Respiratory: No respiratory distress. Breath sounds normal. No Wheezing. No rales Abdomen: Soft and nontender. No rigidity. No distention. good BS x4 Skin: Skin warm and dry. Normal skin color. Normal skin turgor. Extremities: No lower extremity edema. Neurovascular intact to all extremities. No Lacerations. No Rash Neuro: Oriented X 3. No motor deficit. No sensory deficit. Moving all extermities. No slurred speech MDM - Overdose MDM Narrative Medical decision making narrative: Patient monitor in the emergency department for over 3 hours. Only took 1 extra dose of long-acting metoprolol. Finding was discussed with poison control. Feel comfortable with discharge close follow-up on an outpatient basis. Two sets of cardiac enzyme was done. They actually came down or the 2nd set. Will discharge patient home. Close follow-up outpatient basis. Discussed with patient the need to take medication as prescribed. Patient states that this was simply a human error Lab Data Attestation: I reviewed the patient's lab results. Result diagrams: 05/31/20 19:03 05/31/20 19:03 Labs: Lab Results 05/31/20 05/31/20 05/31/20 Range/Units 19:03 19:03 19:03 WBC 6.3 (4.8-10.8) X10*3/uL RBC 4.69 (4.60-5.80) X10*6/uL Hgb 12.8 L (14.0-18.0) g/dl Hct 39.0 L (42-52) % MCV 83.2 (80-98) fL MCH 27.3 (27.0-33.0) pg MCHC 32.8 (31.0-36.0) g/dl RDW 14.3 (11.0-16.0) % Plt Count 188 (160-400) X10*3/uL MPV 9.5 (9.4-12.4) fL Immature Gran % (Auto) 0.3 (0.0-0.4) % Neut % (Auto) 55.9 (45-73) % Lymph % (Auto) 23.6 (20-40) % [place] % (Auto) 15.5 H (2-11) % Eos % (Auto) 4.4 H (0-4) % Baso % (Auto) 0.3 (0-2) % Lymph # (Auto) 1.5 (1.2-4.9) X10*3/uL [place] # (Auto) 1.0 (0.1-1.2) X10*3/uL Eos # (Auto) 0.3 (0.0-0.4) X10*3/uL Baso # (Auto) 0.0 (0.0-0.2) X10*3/uL Abs Immat Gran (auto) 0.02 (0.00-0.03) X10*3/uL Absolute Neuts (auto) 3.5 (2.0-8.3) X10*3/uL Absolute Nucleated RBC 0.000 (0.0-0.012) X10*3/uL Nucleated RBC % (auto) 0.0 (0.0-0.2) /100WBC PT 24.6 H D (10.8-13.0) SEC INR 2.1 H (0.9-1.1) Sodium 140 (135-145) mmol/L Potassium 3.6 (3.3-5.1) mmol/l Chloride 106 (96-108) mmol/L Carbon Dioxide 24 (22-29) mmol/L Anion Gap 14 (12-20) BUN 9 (9-16) mg/dL Creatinine 0.76 (0.5-1.4) mg/dL Estim Creat Clear Calc 126.6 Estimated GFR > 60 Random Glucose 109 (60-115) mg/dL Calcium 8.5 (8.4-10.2) mg/dL Total Bilirubin 0.5 (0.0-1.0) mg/dL Direct Bilirubin 0.2 (0.0-0.5) mg/dL AST 32 (5-37) U/L ALT 57 H (0-40) U/L Alkaline Phosphatase 85 (39-117) U/L Troponin I High Sens (<3.5-35.0) ng/L Total Protein 7.1 (6.5-8.0) g/dL Albumin 4.2 (3.5-5.0) g/dL 05/31/20 05/31/20 Range/Units 19:03 22:05 WBC (4.8-10.8) X10*3/uL RBC (4.60-5.80) X10*6/uL Hgb (14.0-18.0) g/dl Hct (42-52) % MCV (80-98) fL MCH (27.0-33.0) pg MCHC (31.0-36.0) g/dl RDW (11.0-16.0) % Plt Count (160-400) X10*3/uL MPV (9.4-12.4) fL Immature Gran % (Auto) (0.0-0.4) % Neut % (Auto) (45-73) % Lymph % (Auto) (20-40) % [place] % (Auto) (2-11) % Eos % (Auto) (0-4) % Baso % (Auto) (0-2) % Lymph # (Auto) (1.2-4.9) X10*3/uL [place] # (Auto) (0.1-1.2) X10*3/uL Eos # (Auto) (0.0-0.4) X10*3/uL Baso # (Auto) (0.0-0.2) X10*3/uL Abs Immat Gran (auto) (0.00-0.03) X10*3/uL Absolute Neuts (auto) (2.0-8.3) X10*3/uL Absolute Nucleated RBC (0.0-0.012) X10*3/uL Nucleated RBC % (auto) (0.0-0.2) /100WBC PT (10.8-13.0) SEC INR (0.9-1.1) Sodium (135-145) mmol/L Potassium (3.3-5.1) mmol/l Chloride (96-108) mmol/L Carbon Dioxide (22-29) mmol/L Anion Gap (12-20) BUN (9-16) mg/dL Creatinine (0.5-1.4) mg/dL Estim Creat Clear Calc Estimated GFR Random Glucose (60-115) mg/dL Calcium (8.4-10.2) mg/dL Total Bilirubin (0.0-1.0) mg/dL Direct Bilirubin (0.0-0.5) mg/dL AST (5-37) U/L ALT (0-40) U/L Alkaline Phosphatase (39-117) U/L Troponin I High Sens 15.1 D 7.4 D (<3.5-35.0) ng/L Total Protein (6.5-8.0) g/dL Albumin (3.5-5.0) g/dL ECG Data Interpretation: Atrial fibrillation heart rate is approximately 100 there is no acute ST segment elevation noted. Discharge Plan Discharge Clinical Impression: Drug overdose Patient Disposition: Home, Self-Care Instructions: Adult Overdose (ED) Additional Instructions: please be very careful with the medication. Please only take 1 tablet of the metoprolol succinate per day. Closely follow up on outpatient basis. Prescriptions: No Action warfarin 5 mg Tablet 5 mg PO DAILY RF: 0 Hold Instructions: Resume on 06/02/20. Hold until INR <4 lisinopril 5 mg Tablet 5 mg PO DAILY RF: 0 metoprolol succinate 200 mg tablet extended release 24 hr 200 mg PO DAILY Qty: 30 RF: 0 meclizine 25 mg Tablet 25 mg PO Q8H PRN (Reason: dizziness) Qty: 30 RF: 0
--- NOTE | 2020-05-31 18:26 | PC.NURSE ---
spoke with poison control. stated they were not overly concerned with dose pt has taken by mistake. recommend ekg and monitoring. atropine if beocmes bradycardic and fluids for hypotension.
[2020-05-31 19:11] LABS: Basophils Percent Auto 0.3 % (0-2); Eosinophils Absolute Auto 0.3 X10*3/uL (0.0-0.4); Eosinophils Percent Auto 4.4 % (0-4); Hemoglobin 12.8 g/dl (14.0-18.0); Imm Gran Abs Auto 0.02 X10*3/uL (0.00-0.03); Imm Gran Pct Auto 0.3 % (0.0-0.4); Lymphocytes Absolute Auto 1.5 X10*3/uL (1.2-4.9); Lymphocytes Percent Auto 23.6 % (20-40); MANUAL DIFF FLAG NO; Mean Corpuscular HGB Conc 32.8 g/dl (31.0-36.0); Mean Corpuscular Hemoglobin 27.3 pg (27.0-33.0); Mean Corpuscular Volume 83.2 fL (80-98); Mean Platelet Volume 9.5 fL (9.4-12.4); Monocytes Percent Auto 15.5 % (2-11); Neutrophils Absolute Auto 3.5 X10*3/uL (2.0-8.3); Neutrophils Percent Auto 55.9 % (45-73); Platelet Count 188 X10*3/uL (160-400); Red Blood Count 4.69 X10*6/uL (4.60-5.80); Red Cell Distribution Width 14.3 % (11.0-16.0); White Blood Count 6.3 X10*3/uL (4.8-10.8)
[2020-05-31 19:16] LABS: INTERNATIONAL NORM RATIO 2.1 (0.9-1.1); Prothrombin Time 24.6 SEC (10.8-13.0)
[2020-05-31 19:51] LABS: Troponin-I High Sensitivity 15.1 ng/L (<3.5-35.0)
[2020-05-31 19:58] LABS: Alanine Aminotransferase 57 U/L (0-40); Albumin Level 4.2 g/dL (3.5-5.0); Alkaline Phosphatase 85 U/L (39-117); Anion Gap 14 (12-20); Aspartate Amino Transferase 32 U/L (5-37); Bilirubin Direct 0.2 mg/dL (0.0-0.5); Bilirubin Total 0.5 mg/dL (0.0-1.0); Blood Urea Nitrogen 9 mg/dL (9-16); Calcium 8.5 mg/dL (8.4-10.2); Carbon Dioxide 24 mmol/L (22-29); Chloride 106 mmol/L (96-108); Creatinine Clr Calc Pharmacy 126.6; Estimated Glomerular Filt Rate > 60; Glucose Random 109 mg/dL (60-115); Potassium 3.6 mmol/l (3.3-5.1); Sodium 140 mmol/L (135-145); Total Protein 7.1 g/dL (6.5-8.0)
[2020-05-31 20:00] VITALS: BP 112/68; PULSE 78; RESP 16; O2SAT 98
[2020-05-31 22:00] VITALS: BP 110/70; PULSE 78; RESP 16; O2SAT 98
[2020-05-31 23:06] LABS: Troponin-I High Sensitivity 7.4 ng/L (<3.5-35.0)
== END 2020-06-01 00:14 | disposition home or self-care (01) ==
PROVIDERS: Emergency Provider Emergency Medicine Emergency Medical Services
DX: T44.7X1A Poisoning by beta-adrenoreceptor antagonists, accidental (unintentional), initial encounter (principal); Y92.009 Unspecified place in unspecified non-institutional (private) residence as the place of occurrence of the external cause; Z79.899 Other long term (current) drug therapy; Z79.01 Long term (current) use of anticoagulants
CPT/HCPCS: 36415; 80048; 80076; 84484; 85025; 85610; 99283; 99284

== ENCOUNTER 2021-04-09 23:38 | Emergency (ER) | payer OTHER, SELFPAY ==
--- NOTE | ~2021-04-09 | XR_ITS ---
EXAMINATION: XR CHEST CLINICAL INFORMATION: Shortness of breath COMPARISON: 05/24/2020 TECHNIQUE: 2 views of the chest were obtained. 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 Lung volumes are symmetric. No focal consolidation is seen. No evidence of pneumothorax, pleural effusion, or pulmonary edema. Sternal wires are present. No acute osseous findings are seen. XR/XR chest 2V IMPRESSION: No acute cardiopulmonary findings. Redemonstrated situs inversus.
[2021-04-09 23:45] VITALS: BP 100/67; PULSE 79; RESP 16; O2SAT 97; BMI 28.0
--- NOTE | 2021-04-10 00:10 | ED_ITS ---
HPI - General Adult General Chief complaint: General Medical Stated complaint: SoB, sharp pain on right side Time Seen by Provider: 04/10/21 00:10 Source: patient Mode of arrival: ambulatory Limitations: no limitations History of Present Illness HPI narrative: Lightheaded, numbness, shortness of breath for a month. Patient has been seeing his doctor. patient has had blood work, EKG, ultrasound. All the tests have been negative. Patient denies anxiety or panic attacks. Patient has atrial fibrillation and sinus inversus. Patient is followed by Dr. Rodríguez of Cardiology. [facility] providers [facility]. Patient states not recent history of stress test. Patient states that his INR has been stable at 2.5. Patient had open heart surgery in 2005 for valve surgery Onset (ago): month(s) Severity: moderate Relieving factors: none Exacerbating factors: none Related Data Home Medications Medication Instructions Recorded Confirmed lisinopril 5 mg tablet 5 mg PO DAILY 05/29/20 05/29/20 warfarin 5 mg tablet 5 mg PO DAILY 05/29/20 05/29/20 Previous Rx's Medication Instructions Recorded meclizine 25 mg tablet 25 mg PO Q8H PRN #30 tab 05/30/20 metoprolol succinate 200 mg 200 mg PO DAILY #30 tab 05/30/20 tablet,extended release 24 hr Allergies Allergy/AdvReac Type Severity Reaction Status Date / Time Penicillins Allergy Unknown RASH,NAUSEA Verified 05/24/20 18:25 ,VOMITING Review of Systems Constitutional: Constitutional: Reports no additional constitutional c omplaints Eyes: Eyes: Reports no additional eye complaints ENT: Denies dizziness Cardiovascular: Cardiovascular: Reports no additional cardiovascular complaints Respiratory: Respiratory: Reports as per HPI Gastrointestinal: Gastrointestinal: Reports no additional gastrointestinal complaints Musculoskeletal: Musculoskeletal: Reports no additional musculoskeletal complaints Integumentary/Breasts: Skin/Breast: Denies rash Neurologic: Reports system reviewed and no additional complaints, except as documented, Denies dizziness and Denies Sensory deficit (Neuro) Psychiatric: Psychiatric: Denies anxiety [facility] Past Medical History Medical History Afib Aortic valve disease Dextrocardia Surgical History History of open heart surgery Social History Social History Household Members: Spouse Housing: Apartment Do you presently have visiting nurse or other home services: No Alcohol intake: never Advance Directives: No Advance Directives Information Provided: Yes service: No Current occupational status: disabled Physical Exam Vital Signs: Vital Signs: Last Vital Signs Pulse 79 04/09/21 23:45 Resp 16 04/09/21 23:45 BP 100/67 04/09/21 23:45 Pulse Ox 97 04/09/21 23:45 Body Mass Index 28.0 Const: General: healthy appearing Nutritional Appearance: average body habitus Orientation/consciousness: oriented to person and patient oriented x3 Limitations: no limitations HENMT: Head: Yes normal to inspection Ears: external ears normal General nose exam: Normal external nose present Mouth: Normal oral and palatal mucosa present and oropharynx normal Throat: Yes posterior oropharynx normal Eyes: General: appearance normal, both eyes and all related structures Neck: Other: supple Neck: Yes normal visual inspection Chest: Other: old ope heart scar Resp: Auscultation: clear to auscultation bilaterally Cardio: Other: IRRR, 3/6 [place] Jugular venous distension: no JVD GI: Inspection: Yes normal to inspection Palpation (GI): Soft to palpation, nontender and No hepatosplenomegaly present Auscultation: normal bowel sounds : General: Yes no CVA tenderness Back/Spine/Pelvis: Back: no CVA tenderness Skin: General skin exam: no rashes or lesions noted Neuro: General: oriented to person and patient oriented x3 Cranial nerves: Yes CN's II-XII intact bilaterally Motor exam (neuro): 5/5 motor strength present throughout Sensory Exam: No Sensory deficit (Neuro) Extrem: General: Yes normal to inspection Psych: Appearance: grossly normal Course Reevaluation(s) Reevaluation #1: patient with a long complicated cardiac history including sinus inversus, open heart surgery for valve issue, chronic atrial fibrillation on coumadin and betablocker, cardioversion multiple times who presents with weakness. At this time his weakness, lightheadedness seem secondary to his hypotension. Will have patient stop his lisinopril until he sees his clinical science consultant. Will give the patient a list of question to ask his doctor. Time: 01:18 Medical Decision Making Lab Data Result diagrams: 04/10/21 00:30 04/10/21 00:30 Labs: Lab Results 04/10/21 04/10/21 04/10/21 Range/Units 00:30 00:30 00:30 WBC 6.1 (4.8-10.8) X10*3/uL RBC 4.54 L (4.60-5.80) X10*6/uL Hgb 12.1 L (14.0-18.0) g/dl Hct 37.5 L (42-52) % MCV 82.6 (80-98) fL MCH 26.7 L (27.0-33.0) pg MCHC 32.3 (31.0-36.0) g/dl RDW 13.6 (11.0-16.0) % Plt Count 153 L (160-400) X10*3/uL MPV 10.8 (9.4-12.4) fL Immature Gran % (Auto) 0.3 (0.0-0.4) % Neut % (Auto) 46.8 (45-73) % Lymph % (Auto) 35.5 (20-40) % [place] % (Auto) 12.3 H (2-11) % Eos % (Auto) 4.6 H (0-4) % Baso % (Auto) 0.5 (0-2) % Lymph # (Auto) 2.2 (1.2-4.9) X10*3/uL [place] # (Auto) 0.8 (0.1-1.2) X10*3/uL Eos # (Auto) 0.3 (0.0-0.4) X10*3/uL Baso # (Auto) 0.0 (0.0-0.2) X10*3/uL Abs Immat Gran (auto) 0.02 (0.00-0.03) X10*3/uL Absolute Neuts (auto) 2.8 (2.0-8.3) X10*3/uL Absolute Nucleated RBC 0.000 (0.0-0.012) X10*3/uL Nucleated RBC % (auto) 0.0 (0.0-0.2) /100WBC Sodium 139 (135-145) mmol/L Potassium 3.9 (3.3-5.1) mmol/L Chloride 109 H (96-108) mmol/L Carbon Dioxide 24 (22-29) mmol/L Anion Gap 10 L (12-20) BUN 11 (9-16) mg/dL Creatinine 0.80 (0.5-1.4) mg/dL Estim Creat Clear Calc 130.8 Estimated GFR > 60 Random Glucose 89 (60-115) mg/dL Calcium 8.6 (8.4-10.2) mg/dL Troponin I High Sens 5.6 (<3.5-35.0) ng/L Imaging Data Chest x-ray: Radiologist's impression: IMPRESSION: No acute cardiopulmonary findings. Redemonstrated situs inversus. ECG Data Attestation: I personally reviewed and interpreted this ECG as follows: Interpretation: atrial fibrillation, rate 70, no st or twave changes Discharge Plan Discharge Clinical Impression: Acute hypotension Atrial fibrillation Qualifiers: Atrial fibrillation type: longstanding persistent Qualified Code(s): I48.11 - Longstanding persistent atrial fibrillation Patient Disposition: Home, Self-Care Instructions: Hypotension (ED), A-fib (Atrial Fibrillation) (ED) Additional Instructions: 1. Am I a candidate for a heart transplant? 2. Can I not be cardioverted 3. Am I a candidate for cardiac ablation 4. Can my lisinopril be stopped as my blood pressure is so low it is making my dizzy Do not take your lisinopril until discussed with your doctor or your clinical science consultant Prescriptions: No Action warfarin 5 mg Tablet 5 mg PO DAILY RF: 0 Hold Instructions: Resume on 06/02/20. Hold until INR <4 lisinopril 5 mg Tablet 5 mg PO DAILY RF: 0 metoprolol succinate 200 mg tablet extended release 24 hr 200 mg PO DAILY Qty: 30 RF: 0 meclizine 25 mg Tablet 25 mg PO Q8H PRN (Reason: dizziness) Qty: 30 RF: 0 Referrals: Physician,Unknown [Primary Care Provider] - 3 days
--- NOTE | 2021-04-10 00:20 | ECG_ITS ---
Test Reason : AFIB Blood Pressure : / mmHG Vent. Rate : 071 BPM Atrial Rate : 416 BPM P-R Int : 000 ms QRS Dur : 102 ms QT Int : 420 ms P-R-T Axes : 000 208 163 degrees QTc Int : 456 ms Atrial fibrillation Abnormal right superior axis deviation Possible Anterolateral infarct , age undetermined Abnormal ECG When compared with ECG of 29-MAY-2020 12:00, Vent. rate has decreased BY 78 BPM Borderline criteria for Anterior infarct are now Present Borderline criteria for Anterolateral infarct are now Present Inverted T waves have replaced nonspecific T wave abnormality in Lateral leads Referred By: Justo Nixon Electronically Signed By:CHEY WARD
--- NOTE | 2021-04-10 00:23 | PC.NURSE ---
IN ROOM FOR EVAL. PT ON MONITOR WITH HR 76. PT ALERT, RESPIRATIONS EASY, N/L. SKIN W/D. AWAITING FOR FURTHER ORDERS.
[2021-04-10 00:43] LABS: Basophils Percent Auto 0.5 % (0-2); Eosinophils Absolute Auto 0.3 X10*3/uL (0.0-0.4); Eosinophils Percent Auto 4.6 % (0-4); Hematocrit 37.5 % (42-52); Hemoglobin 12.1 g/dl (14.0-18.0); Imm Gran Abs Auto 0.02 X10*3/uL (0.00-0.03); Imm Gran Pct Auto 0.3 % (0.0-0.4); Lymphocytes Absolute Auto 2.2 X10*3/uL (1.2-4.9); Lymphocytes Percent Auto 35.5 % (20-40); MANUAL DIFF FLAG NO; Mean Corpuscular HGB Conc 32.3 g/dl (31.0-36.0); Mean Corpuscular Hemoglobin 26.7 pg (27.0-33.0); Mean Corpuscular Volume 82.6 fL (80-98); Mean Platelet Volume 10.8 fL (9.4-12.4); Monocytes Absolute Auto 0.8 X10*3/uL (0.1-1.2); Monocytes Percent Auto 12.3 % (2-11); Neutrophils Absolute Auto 2.8 X10*3/uL (2.0-8.3); Neutrophils Percent Auto 46.8 % (45-73); Platelet Count 153 X10*3/uL (160-400); Red Blood Count 4.54 X10*6/uL (4.60-5.80); Red Cell Distribution Width 13.6 % (11.0-16.0); White Blood Count 6.1 X10*3/uL (4.8-10.8)
[2021-04-10 00:58] LABS: Anion Gap 10 (12-20); Blood Urea Nitrogen 11 mg/dL (9-16); Calcium 8.6 mg/dL (8.4-10.2); Carbon Dioxide 24 mmol/L (22-29); Chloride 109 mmol/L (96-108); Creatinine Clr Calc Pharmacy 130.8; Estimated Glomerular Filt Rate > 60; Glucose Random 89 mg/dL (60-115); Potassium 3.9 mmol/L (3.3-5.1); Sodium 139 mmol/L (135-145)
[2021-04-10 01:01] LABS: Troponin-I High Sensitivity 5.6 ng/L (<3.5-35.0)
[2021-04-10 01:54] VITALS: BP 104/63; PULSE 80; RESP 20; O2SAT 98
== END 2021-04-10 01:56 | disposition home or self-care (01) ==
PROVIDERS: Emergency Provider Emergency Medicine
DX: I48.11 Longstanding persistent atrial fibrillation (principal); I95.9 Hypotension, unspecified; R06.02 Shortness of breath; Z79.899 Other long term (current) drug therapy
CPT/HCPCS: 36415; 71046; 80048; 84484; 85025; 93005; 96360; 99283; 99284

== ENCOUNTER 2021-06-03 07:56 | Emergency (ER) | payer OTHER, SELFPAY ==
--- NOTE | ~2021-06-03 | XR_ITS ---
EXAMINATION: XR CHEST CLINICAL INFORMATION: Chest pressure/palpitations. COMPARISON: Chest x-ray 04/10/2021 TECHNIQUE: Frontal view of the chest was obtained. FINDINGS: Situs inversus again noted. Sternotomy wires are present. The lungs are well aerated. There is no lobar consolidation. No pleural effusion or pneumothorax. No gross osseous abnormality. XR/XR chest 1V IMPRESSION: Stable examination demonstrating no acute pulmonary pathology.
[2021-06-03 08:00] VITALS: BP 117/58; PULSE 98; RESP 22; TEMP 36.7; O2SAT 97
--- NOTE | 2021-06-03 08:18 | ECG_ITS ---
Test Reason : chest pain Blood Pressure : / mmHG Vent. Rate : 080 BPM Atrial Rate : 000 BPM P-R Int : 000 ms QRS Dur : 112 ms QT Int : 382 ms P-R-T Axes : 000 209 169 degrees QTc Int : 440 ms Possible Limb lead reversal Atrial fibrillation Right superior axis deviation Pulmonary disease pattern Abnormal ECG When compared with ECG of 10-APR-2021 00:30, Borderline criteria for Anterior infarct are no longer Present Borderline criteria for Anterolateral infarct are no longer Present Nonspecific T wave abnormality has replaced inverted T waves in Anterior leads recheck limb leads Referred By: Sunshine Richard Electronically Signed By:VLADIMIR REDMAN MD
[2021-06-03 08:19] VITALS: BP 108/49; PULSE 78; RESP 22; O2SAT 96; BMI 28.0
[2021-06-03] MEDS: 0.9 % Sodium Chloride 1,000 ML 999 ML IVCONT (08:29)
[2021-06-03 08:34] LABS: MANUAL DIFF FLAG NO
--- NOTE | 2021-06-03 08:35 | ED_ITS ---
HPI - General Adult General Chief complaint: Arrhythmia/Palpitations Stated complaint: palpations heart problems Time Seen by Provider: 06/03/21 08:11 Source: patient Mode of arrival: ambulatory History of Present Illness HPI narrative: 41-year-old male with past medical history of AFib on Coumadin, aortic valve disease, dextrocardia, to the ED complaining of sudden onset chest pressure, palpitations, and room spinning dizziness since waking this morning around 6:30am. Reports dizziness was a quick episode, which resolved, not present now. Admits to feeling lightheaded now. Reports persistent chest tightness. Denies headache, visual changes, shortness of breath, abdominal pain, nausea/vomiting, numbness, tingling, recent illness, decreased p.o. intake, recent travel Onset (ago): hour(s) Related Data Home Medications Medication Instructions Recorded Confirmed lisinopril 5 mg tablet 5 mg PO DAILY 05/29/20 05/29/20 warfarin 5 mg tablet 5 mg PO DAILY 05/29/20 05/29/20 Previous Rx's Medication Instructions Recorded meclizine 25 mg tablet 25 mg PO Q8H PRN #30 tab 05/30/20 metoprolol succinate 200 mg 200 mg PO DAILY #30 tab 05/30/20 tablet,extended release 24 hr Allergies Allergy/AdvReac Type Severity Reaction Status Date / Time Penicillins Allergy Unknown RASH,NAUSEA Verified 05/24/20 18:25 ,VOMITING Review of Systems Review of Systems: Constitutional: No Fever, No Chills, No Night Sweats, No Fatigue, No Malaise ENT/Mouth: No Ear Pain, No Nasal Congestion, No sore throat Eyes: No Eye Pain, No Swelling, No Discharge, No Vision Changes Cardiovascular: + Chest Pain, No SOB, No Dyspnea on Exertion, No Edema, + Palpitations Respiratory: No Cough, No Dyspnea Gastrointestinal: No Nausea, No Vomiting, No Diarrhea, No Constipation, No Abdominal pain Genitourinary: No Dysuria, No Urinary Frequency, No Hematuria, No Flank Pain Musculoskeletal: No joint pain, No Myalgias, No Joint Swelling Skin: No Skin Lesions, No rash Neuro: No Weakness, No Numbness, No Paresthesias, No Loss of Consciousness, + Dizziness-resolved, lightheadedness , No Headache Yes all other systems are reviewed and are negative Neurologic: Denies Abnormal speech present [facility] Past Medical History Attestation statement: The following information was validated with the patient. Medical History Afib Aortic valve disease Dextrocardia Surgical History History of open heart surgery Social History Social History Household Members: Spouse Housing: Apartment Do you presently have visiting nurse or other home services: No Alcohol intake: unknown Patient Tobacco Use Status: Tobacco use Unknown Use of substances other than those prescribed or required for medical reasons: Unknown Advance Directives: Yes Advance Directives Information Provided: Yes Advance Directives on File: No service: No Current occupational status: disabled Physical Exam Vital Signs: Vital Signs: Last Vital Signs Temp 98.1 F 06/03/21 08:00 Pulse 80 06/03/21 10:42 Resp 15 06/03/21 10:42 BP 100/52 L 06/03/21 10:42 Pulse Ox 100 06/03/21 10:42 Body Mass Index 28.0 Const: General: cooperative, healthy appearing, no acute distress and well developed Orientation/consciousness: patient oriented x3 Limitations: no limitations HENMT: Head: Yes normal to inspection Ears: hearing grossly normal bilaterally General nose exam: Normal external nose present Face and sinus: Yes normal facial exam Eyes: General: appearance normal, both eyes and all related structures Pupils: Equal, round and reactive pupils present EOM: EOMs intact bilaterally Neck: Neck: Yes normal visual inspection, Yes no lymphadenopathy and Yes no meningeal signs Resp: Effort & Inspection: normal respiratory effort Auscultation: clear to auscultation bilaterally, no rales, no rhonchi and no wheezes Cardio: Rate: regular rate Rhythm: abnormal rhythm Heart sounds: S1 normal heart sound present and S2 normal heart sound present GI: Inspection: Yes normal to inspection Palpation (GI): Soft to palpation, nontender, no guarding and not rigid : General: Yes no CVA tenderness Back/Spine/Pelvis: Back: no CVA tenderness Skin: Rashes: no rashes Wounds: no wounds Neuro: General: patient oriented x3, gait normal, tone normal, moves all extremities, no meningeal signs, no focal motor deficits and CN's II-XI intact bilaterally Cranial nerves: Yes CN's II-XII intact bilaterally, Yes Equal, round and reactive pupils present and Yes Bilaterally intact EOM present Cognition (Neuro): normal cognition Speech: No Abnormal speech present Gait exam (Neuro): Normal gait present Motor exam (neuro): 5/5 motor strength present throughout, Pronator motor function not present and no tremor noted Coordination: [id number] test normal Romberg Test: Negative Extrem: General: Yes normal to inspection, Yes no pedal edema and Yes no calf tenderness Course Course Course Narrative: -0943--no leukocytosis. H&H at baseline. INR therapeutic at 2.2. COVID-19 negative -BNP 115, initial troponin negative > will obtain 3 hour repeat XR chest 1V IMPRESSION: Stable examination demonstrating no acute pulmonary pathology. -1047--patient would like to be discharged at this time, agreeable to 2nd troponin being drawn, but would like to be discharged prior to results. I will call patient if results are abnormal. Discussed worrisome signs and symptoms and strict return precautions. Patient reports symptomatic resolution, asymptomatic at present. Patient feels safe for discharge at this time follow-up with PCP Medical Decision Making MDM Narrative Medical decision making narrative: 41-year-old male with past medical history of AFib on Coumadin, aortic valve disease, dextrocardia, to the ED complaining of sudden onset chest pressure, palpitations, and room spinning dizziness since waking this morning around 6:30am. On exam tachypneic, NAD/nontoxic appearing, lungs CTA, no focal neuro deficits, no pedal edema. EKG AFib rate controlled. Concern for ACS vs BPPV/vertigo vs metabolic abnormalities. Jerry infectious etiology/viral syndrome/COVID-19. Low concern for SAH/ICH, CVT or PE Plan: EKG, labs, CXR, UA, IVF, orthostatics, re-evaluate Lab Data Result diagrams: 06/03/21 08:29 06/03/21 08:29 Labs: Lab Results 06/03/21 06/03/21 06/03/21 Range/Units 08:29 08:29 08:29 WBC 7.4 (4.8-10.8) X10*3/uL RBC 4.89 (4.60-5.80) X10*6/uL Hgb 13.1 L (14.0-18.0) g/dl Hct 41.2 L (42.0-52.0) % MCV 84.3 (80.0-98.0) fL MCH 26.8 L (27.0-33.0) pg MCHC 31.8 (31.0-36.0) g/dl RDW 13.3 (11.0-16.0) % Plt Count 182 (160-400) X10*3/uL MPV 10.2 (9.4-12.4) fL Immature Gran % (Auto) 0.1 (0.0-0.4) % Neut % (Auto) 52.4 (45-73) % Lymph % (Auto) 31.1 (20-40) % [place] % (Auto) 11.8 H (2-11) % Eos % (Auto) 4.2 H (0-4) % Baso % (Auto) 0.4 (0-2) % Lymph # (Auto) 2.3 (1.2-4.9) X10*3/uL [place] # (Auto) 0.9 (0.1-1.2) X10*3/uL Eos # (Auto) 0.3 (0.0-0.4) X10*3/uL Baso # (Auto) 0.0 (0.0-0.2) X10*3/uL Abs Immat Gran (auto) 0.01 (0.00-0.03) X10*3/uL Absolute Neuts (auto) 3.9 (2.0-8.3) x10*3/uL Absolute Nucleated RBC 0.000 (0.0-0.012) X10*3/uL Nucleated RBC % (auto) 0.0 (0.0-0.2) /100WBC PT (9.9-13.0) SEC INR (0.9-1.1) Sodium 137 (135-145) mmol/L Potassium 4.2 (3.3-5.1) mmol/L Chloride 106 (96-108) mmol/L Carbon Dioxide 25 (22-29) mmol/L Anion Gap 10 L (12-20) BUN 18 H D (9-16) mg/dL Creatinine 0.86 (0.5-1.4) mg/dL Estim Creat Clear Calc 120.4 Estimated GFR > 60 Random Glucose 112 (60-115) mg/dL Calcium 9.2 D (8.4-10.2) mg/dL Magnesium 2.0 (1.6-2.6) mg/dL Total Bilirubin 0.4 (0.0-1.0) mg/dL Direct Bilirubin 0.2 (0.0-0.5) mg/dL AST 23 (5-37) U/L ALT 24 (0-40) U/L Alkaline Phosphatase 74 (39-117) U/L Troponin I High Sens 3.7 (<3.5-35.0) ng/L B-Natriuretic Peptide (<100) pg/mL Total Protein 7.1 (6.5-8.0) g/dL Albumin 4.2 (3.5-5.0) g/dL Urine Color Urine Appearance Urine pH (5.0-8.0) Ur Specific [place] (1.005-1.025) Urine Protein (NEG-TRACE) MG/DL Urine Glucose (UA) (NEG) MG/DL Urine Ketones (NEG) MG/DL Urine Blood (NEG) Urine Nitrite (NEG) Ur Leukocyte Esterase (NEG) Urine RBC (0) /HPF Urine WBC (0-4) /HPF Ur Squamous Epith Cells /LPF Urine Bacteria /LPF COVID-19 (MIGUEL) (Negative) COVID-19 Clin Com 06/03/21 06/03/21 06/03/21 Range/Units 08:29 08:29 08:29 WBC (4.8-10.8) X10*3/uL RBC (4.60-5.80) X10*6/uL Hgb (14.0-18.0) g/dl Hct (42.0-52.0) % MCV (80.0-98.0) fL MCH (27.0-33.0) pg MCHC (31.0-36.0) g/dl RDW (11.0-16.0) % Plt Count (160-400) X10*3/uL MPV (9.4-12.4) fL Immature Gran % (Auto) (0.0-0.4) % Neut % (Auto) (45-73) % Lymph % (Auto) (20-40) % [place] % (Auto) (2-11) % Eos % (Auto) (0-4) % Baso % (Auto) (0-2) % Lymph # (Auto) (1.2-4.9) X10*3/uL [place] # (Auto) (0.1-1.2) X10*3/uL Eos # (Auto) (0.0-0.4) X10*3/uL Baso # (Auto) (0.0-0.2) X10*3/uL Abs Immat Gran (auto) (0.00-0.03) X10*3/uL Absolute Neuts (auto) (2.0-8.3) x10*3/uL Absolute Nucleated RBC (0.0-0.012) X10*3/uL Nucleated RBC % (auto) (0.0-0.2) /100WBC PT 26.0 H (9.9-13.0) SEC INR 2.2 H (0.9-1.1) Sodium (135-145) mmol/L Potassium (3.3-5.1) mmol/L Chloride (96-108) mmol/L Carbon Dioxide (22-29) mmol/L Anion Gap (12-20) BUN (9-16) mg/dL Creatinine (0.5-1.4) mg/dL Estim Creat Clear Calc Estimated GFR Random Glucose (60-115) mg/dL Calcium (8.4-10.2) mg/dL Magnesium (1.6-2.6) mg/dL Total Bilirubin (0.0-1.0) mg/dL Direct Bilirubin (0.0-0.5) mg/dL AST (5-37) U/L ALT (0-40) U/L Alkaline Phosphatase (39-117) U/L Troponin I High Sens (<3.5-35.0) ng/L B-Natriuretic Peptide 115 H (<100) pg/mL Total Protein (6.5-8.0) g/dL Albumin (3.5-5.0) g/dL Urine Color Urine Appearance Urine pH (5.0-8.0) Ur Specific [place] (1.005-1.025) Urine Protein (NEG-TRACE) MG/DL Urine Glucose (UA) (NEG) MG/DL Urine Ketones (NEG) MG/DL Urine Blood (NEG) Urine Nitrite (NEG) Ur Leukocyte Esterase (NEG) Urine RBC (0) /HPF Urine WBC (0-4) /HPF Ur Squamous Epith Cells /LPF Urine Bacteria /LPF COVID-19 (MIGUEL) Negative (Negative) COVID-19 Clin Com See Note 06/03/21 Range/Units 09:25 WBC (4.8-10.8) X10*3/uL RBC (4.60-5.80) X10*6/uL Hgb (14.0-18.0) g/dl Hct (42.0-52.0) % MCV (80.0-98.0) fL MCH (27.0-33.0) pg MCHC (31.0-36.0) g/dl RDW (11.0-16.0) % Plt Count (160-400) X10*3/uL MPV (9.4-12.4) fL Immature Gran % (Auto) (0.0-0.4) % Neut % (Auto) (45-73) % Lymph % (Auto) (20-40) % [place] % (Auto) (2-11) % Eos % (Auto) (0-4) % Baso % (Auto) (0-2) % Lymph # (Auto) (1.2-4.9) X10*3/uL [place] # (Auto) (0.1-1.2) X10*3/uL Eos # (Auto) (0.0-0.4) X10*3/uL Baso # (Auto) (0.0-0.2) X10*3/uL Abs Immat Gran (auto) (0.00-0.03) X10*3/uL Absolute Neuts (auto) (2.0-8.3) x10*3/uL Absolute Nucleated RBC (0.0-0.012) X10*3/uL Nucleated RBC % (auto) (0.0-0.2) /100WBC PT (9.9-13.0) SEC INR (0.9-1.1) Sodium (135-145) mmol/L Potassium (3.3-5.1) mmol/L Chloride (96-108) mmol/L Carbon Dioxide (22-29) mmol/L Anion Gap (12-20) BUN (9-16) mg/dL Creatinine (0.5-1.4) mg/dL Estim Creat Clear Calc Estimated GFR Random Glucose (60-115) mg/dL Calcium (8.4-10.2) mg/dL Magnesium (1.6-2.6) mg/dL Total Bilirubin (0.0-1.0) mg/dL Direct Bilirubin (0.0-0.5) mg/dL AST (5-37) U/L ALT (0-40) U/L Alkaline Phosphatase (39-117) U/L Troponin I High Sens (<3.5-35.0) ng/L B-Natriuretic Peptide (<100) pg/mL Total Protein (6.5-8.0) g/dL Albumin (3.5-5.0) g/dL Urine Color YELLOW Urine Appearance CLEAR Urine pH 6.0 (5.0-8.0) Ur Specific [place] >= 1.030 H (1.005-1.025) Urine Protein NEG (NEG-TRACE) MG/DL Urine Glucose (UA) NEG (NEG) MG/DL Urine Ketones NEG (NEG) MG/DL Urine Blood TRACE (NEG) Urine Nitrite NEG (NEG) Ur Leukocyte Esterase NEG (NEG) Urine RBC 1-4 (0) /HPF Urine WBC 0 (0-4) /HPF Ur Squamous Epith Cells TRACE /LPF Urine Bacteria NONE /LPF COVID-19 (MIGUEL) (Negative) COVID-19 Clin Com ECG Data Attestation: I personally reviewed and interpreted this ECG as follows: Prior ECG tracings: available for review Interpretation: EKG AFib at a rate of 80 QTC 440 Nonischemic/no STEMI Discharge Plan Discharge Clinical Impression: Chest pressure, Dizziness Patient Disposition: Home, Self-Care Instructions: Dizziness (ED), Chest Pain (ED) Additional Instructions: Your blood work was reassuring today in the ED your chest x-ray was unremarkable You tested negative for COVID-19 anion your 2nd heart enzyme is pending, I will call you if results are abnormal Please follow-up with her primary care doctor If your symptoms persist or worsen, chest pain becomes more constant, and shortness of breath, persistent nausea/dizziness or weakness please return to the ED Prescriptions: No Action warfarin 5 mg Tablet 5 mg PO DAILY RF: 0 Hold Instructions: Resume on 06/02/20. Hold until INR <4 lisinopril 5 mg Tablet 5 mg PO DAILY RF: 0 metoprolol succinate 200 mg tablet extended release 24 hr 200 mg PO DAILY Qty: 30 RF: 0 meclizine 25 mg Tablet 25 mg PO Q8H PRN (Reason: dizziness) Qty: 30 RF: 0 Referrals: Physician,Unknown J [Primary Care Provider] - 2 days
[2021-06-03 08:36] LABS: Basophils Percent Auto 0.4 % (0-2); Eosinophils Absolute Auto 0.3 X10*3/uL (0.0-0.4); Eosinophils Percent Auto 4.2 % (0-4); Hematocrit 41.2 % (42.0-52.0); Hemoglobin 13.1 g/dl (14.0-18.0); Imm Gran Abs Auto 0.01 X10*3/uL (0.00-0.03); Imm Gran Pct Auto 0.1 % (0.0-0.4); Lymphocytes Absolute Auto 2.3 X10*3/uL (1.2-4.9); Lymphocytes Percent Auto 31.1 % (20-40); Mean Corpuscular HGB Conc 31.8 g/dl (31.0-36.0); Mean Corpuscular Hemoglobin 26.8 pg (27.0-33.0); Mean Corpuscular Volume 84.3 fL (80.0-98.0); Mean Platelet Volume 10.2 fL (9.4-12.4); Monocytes Absolute Auto 0.9 X10*3/uL (0.1-1.2); Monocytes Percent Auto 11.8 % (2-11); Neutrophils Absolute Auto 3.9 x10*3/uL (2.0-8.3); Neutrophils Percent Auto 52.4 % (45-73); Platelet Count 182 X10*3/uL (160-400); Red Blood Count 4.89 X10*6/uL (4.60-5.80); Red Cell Distribution Width 13.3 % (11.0-16.0); White Blood Count 7.4 X10*3/uL (4.8-10.8)
[2021-06-03] MEDS: Meclizine HCl 25 MG TABLET PO (08:44)
[2021-06-03 08:46] LABS: INTERNATIONAL NORM RATIO 2.2 (0.9-1.1)
[2021-06-03 09:01] LABS: IDNOW Serial# 55D5AD1C
[2021-06-03 09:02] LABS: COVID-19 Test Negative (Negative)
[2021-06-03 09:06] LABS: Alanine Aminotransferase 24 U/L (0-40); Albumin Level 4.2 g/dL (3.5-5.0); Alkaline Phosphatase 74 U/L (39-117); Anion Gap 10 (12-20); Aspartate Amino Transferase 23 U/L (5-37); Bilirubin Direct 0.2 mg/dL (0.0-0.5); Bilirubin Total 0.4 mg/dL (0.0-1.0); Blood Urea Nitrogen 18 mg/dL (9-16); Calcium 9.2 mg/dL (8.4-10.2); Carbon Dioxide 25 mmol/L (22-29); Chloride 106 mmol/L (96-108); Creatinine Clr Calc Pharmacy 120.4; Estimated Glomerular Filt Rate > 60; Glucose Random 112 mg/dL (60-115); Potassium 4.2 mmol/L (3.3-5.1); Sodium 137 mmol/L (135-145); Total Protein 7.1 g/dL (6.5-8.0)
[2021-06-03 09:08] LABS: B Type Natriuretic Peptide 115 pg/mL (<100); Troponin-I High Sensitivity 3.7 ng/L (<3.5-35.0)
[2021-06-03 09:36] LABS: Appearance Urine CLEAR; Color Urine YELLOW; Glucose Urine UA NEG (NEG); Leukocyte Esterase Urine NEG (NEG); Nitrite Urine NEG (NEG); Specific Gravity - Urine >= 1.030 (1.005-1.025); UACC Culture Trigger NO; Urine Blood TRACE (NEG); Urine Ketones NEG (NEG); Urine Protein NEG (NEG-TRACE)
[2021-06-03 09:47] LABS: Squamous Epithelial Cell Urine TRACE /LPF; WBC Urine 0 /HPF (0-4)
[2021-06-03 10:42] VITALS: BP 100/52; PULSE 80; RESP 15; O2SAT 100
--- NOTE | 2021-06-03 10:43 | PC.NURSE ---
Pt states he is feeling better and would like to leave. Repeat troponin drawn and PA notified.
[2021-06-03 11:05] LABS: Troponin-I High Sensitivity 4.2 ng/L (<3.5-35.0)
== END 2021-06-03 11:11 | disposition home or self-care (01) ==
PROVIDERS: Physician Assistant; Emergency Provider Emergency Medicine
DX: R07.89 Other chest pain (principal); R42 Dizziness and giddiness; I48.91 Unspecified atrial fibrillation; Z79.01 Long term (current) use of anticoagulants; Q24.0 Dextrocardia; Z20.822 Contact with and (suspected) exposure to COVID-19
CPT/HCPCS: 36415; 71045; 80048; 80076; 81001; 83735; 83880; 84484; 85025; 85610; 87635; 93005; 96360; 99284

== ENCOUNTER 2021-11-13 21:21 | Emergency (ER) | payer OTHER, SELFPAY ==
--- NOTE | ~2021-11-13 | XR_ITS ---
EXAMINATION: XR CHEST CLINICAL INFORMATION: Chest pain. COMPARISON: 06/03/2021 and 04/10/2021 chest radiographs. TECHNIQUE: Frontal view of the chest was obtained. FINDINGS: Situs inversus is again seen with mild cardiomegaly. The lungs are clear. The heart and mediastinal structures are unremarkable. Multilevel sternotomy wires are intact XR/XR chest 1V IMPRESSION: Stable chest without acute cardiopulmonary process.
--- NOTE | 2021-11-13 21:26 | ECG_ITS ---
Test Reason : CP Blood Pressure : / mmHG Vent. Rate : 087 BPM Atrial Rate : 000 BPM P-R Int : 000 ms QRS Dur : 104 ms QT Int : 348 ms P-R-T Axes : 000 208 135 degrees QTc Int : 418 ms Atrial fibrillation Right superior axis deviation Cannot rule out Anterior infarct , age undetermined Abnormal ECG When compared with ECG of 03-JUN-2021 08:04, Nonspecific T wave abnormality, worse in Anterolateral leads Referred By: Generic ED Physician Electronically Signed By:NIKOLAY HOANG
[2021-11-13 21:32] VITALS: BP 110/60; PULSE 86; RESP 17; TEMP 36.2; O2SAT 98; BMI 28.5
[2021-11-13 21:42] LABS: MANUAL DIFF FLAG NO
[2021-11-13 21:43] LABS: Basophils Percent Auto 0.5 % (0-2); Eosinophils Absolute Auto 0.3 X10*3/uL (0.0-0.4); Eosinophils Percent Auto 4.4 % (0-4); Hematocrit 40.9 % (42.0-52.0); Hemoglobin 13.1 g/dl (14.0-18.0); Imm Gran Abs Auto 0.01 X10*3/uL (0.00-0.03); Imm Gran Pct Auto 0.2 % (0.0-0.4); Lymphocytes Absolute Auto 2.3 X10*3/uL (1.2-4.9); Lymphocytes Percent Auto 36.5 % (20-40); Mean Corpuscular Hemoglobin 26.6 pg (27.0-33.0); Mean Platelet Volume 10.1 fL (9.4-12.4); Monocytes Absolute Auto 0.8 X10*3/uL (0.1-1.2); Monocytes Percent Auto 12.4 % (2-11); Neutrophils Absolute Auto 2.9 x10*3/uL (2.0-8.3); Platelet Count 178 X10*3/uL (160-400); Red Blood Count 4.93 X10*6/uL (4.60-5.80); Red Cell Distribution Width 13.5 % (11.0-16.0); White Blood Count 6.3 X10*3/uL (4.8-10.8)
[2021-11-13 21:51] LABS: INTERNATIONAL NORM RATIO 2.7 (0.9-1.1); Prothrombin Time 31.4 SEC (9.9-13.0)
[2021-11-13 22:03] LABS: Anion Gap 11 (12-20); Blood Urea Nitrogen 17 mg/dL (9-16); Calcium 9.9 mg/dL (8.4-10.2); Carbon Dioxide 26 mmol/L (22-29); Chloride 108 mmol/L (96-108); Creatinine Clr Calc Pharmacy 121.3; Estimated Glomerular Filt Rate > 60; Glucose Random 91 mg/dL (60-115); Potassium 3.9 mmol/L (3.3-5.1); Sodium 141 mmol/L (135-145)
[2021-11-13 22:05] VITALS: BP 105/48; PULSE 81; RESP 18; O2SAT 95
--- NOTE | 2021-11-13 22:06 | ED.CHESTPAIN ---
HPI - Chest Pain General Chief Complaint: Chest Pain Stated Complaint: chest pain; hx of heart condition Time Seen by Provider: 11/13/21 22:05 Source: patient Mode of arrival: ambulatory Limitations: no limitations History of Present Illness HPI narrative: Patient history of paroxysmal atrial fibrillation on Entresto and metoprolol been having palpitation episode off and on for last 2 days with chest pain , patient has dextrocardia had defibrillation done were 2 years ago and he stayed in normal sinus rhythm for long time. Patient is taking metoprolol 200 mg daily and 25 mg twice daily as needed no shortness of breath no leg swelling or pain patient most of the time states in AFib for last 1 year been here multiple times since 06/09 and all the EKG showed AFib. Patient fairly compliant with his medication denies any caffeine intake or distress Related Data Home Medications Medication Instructions Recorded Confirmed warfarin 5 mg tablet 5 mg PO DAILY 05/29/20 05/29/20 metoprolol tartrate 50 mg tablet 1 tab PO BID 11/13/21 11/13/21 sacubitril 24 mg-valsartan 26 mg 1 tab PO BID 11/13/21 11/13/21 tablet (Entresto) Previous Rx's Medication Instructions Recorded meclizine 25 mg tablet 25 mg PO Q8H PRN #30 tab 05/30/20 metoprolol succinate 200 mg 200 mg PO DAILY #30 tab 05/30/20 tablet,extended release 24 hr Allergies Allergy/AdvReac Type Severity Reaction Status Date / Time Penicillins Allergy Unknown RASH,NAUSEA Verified 11/13/21 21:30 ,VOMITING Review of Systems Review of Systems: Yes all other systems are reviewed and are negative [facility] Past Medical History Medical History Afib Aortic valve disease Dextrocardia Surgical History History of open heart surgery Social History Social History Household Members: Spouse Housing: Apartment Do you presently have visiting nurse or other home services: No Alcohol intake: never Patient Tobacco Use Status: Tobacco use Unknown Use of substances other than those prescribed or required for medical reasons: No Advance Directives: No Advance Directives Information Provided: Yes service: No Current occupational status: disabled Physical Exam Vital Signs: Vital Signs: Last Vital Signs Temp 97.1 F 11/13/21 21:32 Pulse 81 11/13/21 22:05 Resp 18 11/13/21 22:05 BP 105/48 L 11/13/21 22:05 Pulse Ox 95 11/13/21 22:05 BMI result Body Mass Index 28.5 Appearance: Alert. Oriented X3. No acute distress. Eyes: No pallor or icterus ENT: Pharynx normal. Oral Mucosa moist Neck: Normal inspection. Neck supple. CVS: Irregularly irregular heart rate fluctuating between 80-110, no murmur /gallopsPulses normal. Respiratory: No respiratory distress. Equal air entry bilateral, no wheezing/rales/rhonchi Abdomen: Soft and nontender. Bowel sounds are present, no mass palpable, no CVA tenderness Skin: Skin warm and dry. Normal skin color. Normal skin turgor. Extremities: No lower extremity edema. No calf tenderness Neuro: Oriented X 3. MDM - Chest Pain MDM Narrative Medical decision making narrative: Patient with stable heart rate AFib which is chronic and most of the times patient stays in AFib fairly complaint is medication no caffeine intake discussed with Cardiology Dr. Stahl advised patient to continue same medications and follow with his canvas shrinker for further management Lab Data Attestation: I reviewed the patient's lab results. Result diagrams: 11/13/21 21:35 11/13/21 21:35 Labs: Lab Results 11/13/21 11/13/21 11/13/21 Range/Units 21:35 21:35 21:35 WBC 6.3 (4.8-10.8) X10*3/uL RBC 4.93 (4.60-5.80) X10*6/uL Hgb 13.1 L (14.0-18.0) g/dl Hct 40.9 L (42.0-52.0) % MCV 83.0 (80.0-98.0) fL MCH 26.6 L (27.0-33.0) pg MCHC 32.0 (31.0-36.0) g/dl RDW 13.5 (11.0-16.0) % Plt Count 178 (160-400) X10*3/uL MPV 10.1 (9.4-12.4) fL Immature Gran % (Auto) 0.2 (0.0-0.4) % Neut % (Auto) 46.0 (45-73) % Lymph % (Auto) 36.5 (20-40) % [place] % (Auto) 12.4 H (2-11) % Eos % (Auto) 4.4 H (0-4) % Baso % (Auto) 0.5 (0-2) % Lymph # (Auto) 2.3 (1.2-4.9) X10*3/uL [place] # (Auto) 0.8 (0.1-1.2) X10*3/uL Eos # (Auto) 0.3 (0.0-0.4) X10*3/uL Baso # (Auto) 0.0 (0.0-0.2) X10*3/uL Abs Immat Gran (auto) 0.01 (0.00-0.03) X10*3/uL Absolute Neuts (auto) 2.9 (2.0-8.3) x10*3/uL Absolute Nucleated RBC 0.000 (0.0-0.012) X10*3/uL Nucleated RBC % (auto) 0.0 (0.0-0.2) /100WBC PT (9.9-13.0) SEC INR (0.9-1.1) Sodium 141 (135-145) mmol/L Potassium 3.9 (3.3-5.1) mmol/L Chloride 108 (96-108) mmol/L Carbon Dioxide 26 (22-29) mmol/L Anion Gap 11 L (12-20) BUN 17 H (9-16) mg/dL Creatinine 0.86 (0.5-1.4) mg/dL Estim Creat Clear Calc 121.3 Estimated GFR > 60 Random Glucose 91 (60-115) mg/dL Calcium 9.9 D (8.4-10.2) mg/dL Troponin I High Sens 4.6 (<3.5-35.0) ng/L 11/13/21 Range/Units 21:35 WBC (4.8-10.8) X10*3/uL RBC (4.60-5.80) X10*6/uL Hgb (14.0-18.0) g/dl Hct (42.0-52.0) % MCV (80.0-98.0) fL MCH (27.0-33.0) pg MCHC (31.0-36.0) g/dl RDW (11.0-16.0) % Plt Count (160-400) X10*3/uL MPV (9.4-12.4) fL Immature Gran % (Auto) (0.0-0.4) % Neut % (Auto) (45-73) % Lymph % (Auto) (20-40) % [place] % (Auto) (2-11) % Eos % (Auto) (0-4) % Baso % (Auto) (0-2) % Lymph # (Auto) (1.2-4.9) X10*3/uL [place] # (Auto) (0.1-1.2) X10*3/uL Eos # (Auto) (0.0-0.4) X10*3/uL Baso # (Auto) (0.0-0.2) X10*3/uL Abs Immat Gran (auto) (0.00-0.03) X10*3/uL Absolute Neuts (auto) (2.0-8.3) x10*3/uL Absolute Nucleated RBC (0.0-0.012) X10*3/uL Nucleated RBC % (auto) (0.0-0.2) /100WBC PT 31.4 H (9.9-13.0) SEC INR 2.7 H (0.9-1.1) Sodium (135-145) mmol/L Potassium (3.3-5.1) mmol/L Chloride (96-108) mmol/L Carbon Dioxide (22-29) mmol/L Anion Gap (12-20) BUN (9-16) mg/dL Creatinine (0.5-1.4) mg/dL Estim Creat Clear Calc Estimated GFR Random Glucose (60-115) mg/dL Calcium (8.4-10.2) mg/dL Troponin I High Sens (<3.5-35.0) ng/L ECG Data ECG #1: Attestation: I personally reviewed and interpreted this ECG as follows: Interpretation: Atrial fibrillation with heart rate 87 beats per minute no acute ST T wave changes no acute ischemic change Discharge Plan Discharge Clinical Impression: Atrial fibrillation Patient Disposition: Home, Self-Care Instructions: A-fib (Atrial Fibrillation) (ED) Additional Instructions: Continue medication as prescribed by a canvas shrinker Call canvas shrinker tomorrow for further management You may take extra metoprolol 25 mg for increase palpitation Report to the ER if heart rate more than 120/dizziness/passing out Prescriptions: No Action warfarin 5 mg Tablet 5 mg PO DAILY 0RF Hold Instructions: Resume on 06/02/20. Hold until INR <4 metoprolol succinate 200 mg tablet extended release 24 hr 200 mg PO DAILY Qty: 30 0RF Rx Instructions: replaces prior dose of 100 mg daily; discontinue diltiazem meclizine 25 mg Tablet 25 mg PO Q8H PRN (Reason: dizziness) Qty: 30 0RF metoprolol tartrate 50 mg tablet 1 tab PO BID 0RF Entresto 24-26 mg tablet 1 tab PO BID 0RF Referrals: Maikol Burden MD [Physician] - 1 week
[2021-11-13 22:12] LABS: Troponin-I High Sensitivity 4.6 ng/L (<3.5-35.0)
== END 2021-11-13 23:22 | disposition home or self-care (01) ==
PROVIDERS: Emergency Provider Internal Medicine; PCP Internal Medicine
DX: I48.0 Paroxysmal atrial fibrillation (principal); Z79.899 Other long term (current) drug therapy
CPT/HCPCS: 36415; 71045; 80048; 84484; 85025; 85610; 93005; 99283; 99285

== ENCOUNTER 2022-07-25 15:00 | Emergency (ER) | payer OTHER, SELFPAY ==
--- NOTE | 2022-07-25 | ECG_ITS ---
Test Reason : PALAPATATIONS Blood Pressure : / mmHG Vent. Rate : 069 BPM Atrial Rate : 000 BPM P-R Int : 000 ms QRS Dur : 104 ms QT Int : 380 ms P-R-T Axes : 000 207 161 degrees QTc Int : 407 ms Atrial fibrillation Possible Anterolateral infarct (cited on or before 10-APR-2021) Abnormal ECG When compared with ECG of 13-NOV-2021 21:26, No significant change was found Referred By: Generic ED Physician Electronically Signed By:NIKOLAY HOANG
[2022-07-25 15:32] LABS: MANUAL DIFF FLAG NO
[2022-07-25 15:33] LABS: Basophils Percent Auto 0.5 % (0-2); Eosinophils Absolute Auto 0.2 X10*3/uL (0.0-0.4); Eosinophils Percent Auto 3.2 % (0-4); Hematocrit 40.7 % (42.0-52.0); Hemoglobin 12.9 g/dl (14.0-18.0); Imm Gran Abs Auto 0.02 X10*3/uL (0.00-0.03); Imm Gran Pct Auto 0.3 % (0.0-0.4); Lymphocytes Absolute Auto 1.9 X10*3/uL (1.2-4.9); Lymphocytes Percent Auto 29.1 % (20-40); Mean Corpuscular HGB Conc 31.7 g/dl (31.0-36.0); Mean Corpuscular Hemoglobin 26.3 pg (27.0-33.0); Mean Corpuscular Volume 82.9 fL (80.0-98.0); Mean Platelet Volume 10.2 fL (9.4-12.4); Monocytes Absolute Auto 0.9 X10*3/uL (0.1-1.2); Monocytes Percent Auto 13.3 % (2-11); Neutrophils Absolute Auto 3.5 x10*3/uL (2.0-8.3); Neutrophils Percent Auto 53.6 % (45-73); Platelet Count 219 X10*3/uL (160-400); Red Blood Count 4.91 X10*6/uL (4.60-5.80); Red Cell Distribution Width 13.9 % (11.0-16.0); White Blood Count 6.5 X10*3/uL (4.8-10.8)
[2022-07-25 15:54] LABS: Alanine Aminotransferase 21 U/L (0-40); Albumin Level 4.1 g/dL (3.5-5.0); Alkaline Phosphatase 79 U/L (39-117); Anion Gap 10 (12-20); Aspartate Amino Transferase 20 U/L (5-37); Bilirubin Total 0.6 mg/dL (0.0-1.0); Blood Urea Nitrogen 12 mg/dL (9-16); Calcium 9.5 mg/dL (8.4-10.2); Carbon Dioxide 24 mmol/L (22-29); Chloride 110 mmol/L (96-108); Estimated Glomerular Filt Rate > 60; Glucose Random 97 mg/dL (60-115); Potassium 3.7 mmol/L (3.3-5.1); Sodium 140 mmol/L (135-145); Total Protein 6.8 g/dL (6.5-8.0)
[2022-07-25 16:01] LABS: Troponin-I High Sensitivity < 3.5 ng/L (<3.5-35.0)
--- NOTE | 2022-07-25 16:32 | PC.NURSE ---
left without triage
== END 2022-07-25 16:33 | disposition left against medical advice (07) ==
PROVIDERS: Emergency Provider Emergency Medicine; PCP Family Medicine
DX: R00.2 Palpitations (principal); R06.02 Shortness of breath; Z79.899 Other long term (current) drug therapy
CPT/HCPCS: 36415; 80053; 84484; 85025; 93005; 99282; 99283

== ENCOUNTER 2022-08-10 05:22 | Emergency (ER) | payer OTHER, SELFPAY ==
--- NOTE | ~2022-08-10 | XR_ITS ---
EXAMINATION: XR CHEST CLINICAL INFORMATION: Heart palpitations COMPARISON: Multiple priors, most recently 11/13/2021 TECHNIQUE: Frontal view of the chest was obtained. FINDINGS: Situs inversus. Median sternotomy wires. The lungs are well expanded. No consolidation, edema, or effusion. No pneumothorax. Unchanged size of the cardiomediastinal silhouette. XR/XR chest 1V IMPRESSION: Situs inversus. No acute pulmonary finding.
[2022-08-10 05:27] VITALS: RESP 17; BMI 29.2
--- NOTE | 2022-08-10 05:27 | ECG_ITS ---
Test Reason : PALPATATIONS Blood Pressure : / mmHG Vent. Rate : 092 BPM Atrial Rate : 000 BPM P-R Int : 000 ms QRS Dur : 102 ms QT Int : 344 ms P-R-T Axes : 000 213 -61 degrees QTc Int : 425 ms Atrial fibrillation Right superior axis deviation Pulmonary disease pattern Nonspecific T wave abnormality Abnormal ECG When compared with ECG of 25-JUL-2022 15:13, No significant change was found Referred By: Generic ED Physician Electronically Signed By:ARGENIS BAZZI MD
[2022-08-10 05:37] VITALS: BP 116/70; PULSE 101; PULSE 88; RESP 14; O2SAT 95
--- NOTE | 2022-08-10 05:45 | PC.NURSE ---
pt expresses feeling anxious recently; no apparent distress, no sob, able to speak in full sentences
--- NOTE | 2022-08-10 05:49 | ED_ITS ---
HPI - Arrhythmia/Palpitations General Chief Complaint: Arrhythmia/Palpitations Stated Complaint: Palpitations/Weakness/Nausea Time Seen by Provider: 08/10/22 05:36 History of Present Illness HPI narrative: Patient history of paroxysmal atrial fibrillation on metoprolol, dextrocardia status post defibrillation about 2 years ago stayed in normal sinus rhythm for a long time started having a AFib again so placed on metoprolol patient had last echocardiogram Min 09/2019 which showed ejection fraction of 35%, patient is not taking Entresto anymore. Comes here for recurrent episodes of palpitation with shortness of breath lightheadedness and dizziness with nausea and right-sided chest pain with tingling in the fingers off and on for last 3 weeks. patient had cardiac cath about 6 years ago which was negative. Patient has a vague dizziness with spinning movements special on standing also lightheaded sometimes Related Data Home Medications Medication Instructions Recorded Confirmed warfarin 5 mg tablet 5 mg PO DAILY 05/29/20 05/29/20 metoprolol tartrate 50 mg tablet 1 tab PO BID 11/13/21 11/13/21 sacubitril 24 mg-valsartan 26 mg 1 tab PO BID 11/13/21 11/13/21 tablet (Entresto) Previous Rx's Medication Instructions Recorded meclizine 25 mg tablet 25 mg PO Q8H PRN dizziness #30 tabs 05/30/20 metoprolol succinate 200 mg 200 mg PO DAILY #30 tabs 05/30/20 tablet,extended release 24 hr lorazepam 0.5 mg tablet (Ativan) 0.5 mg PO BEDTIME PRN anxiety #10 08/10/22 tabs meclizine 25 mg tablet 25 mg PO TID PRN dizziness #20 tabs 08/10/22 Allergies Allergy/AdvReac Type Severity Reaction Status Date / Time Penicillins Allergy Unknown RASH,NAUSEA Verified 11/13/21 21:30 ,VOMITING Review of Systems Review of Systems: Yes all other systems are reviewed and are negative [facility] Past Medical History Medical History Afib Aortic valve disease Dextrocardia Surgical History History of open heart surgery Social History Social History Household Members: Spouse Housing: Apartment Do you presently have visiting nurse or other home services: No Alcohol intake: never Patient Tobacco Use Status: Tobacco use Unknown Smoked in Last 30 Days: No Use of substances other than those prescribed or required for medical reasons: No Advance Directives: No Advance Directives Information Provided: No service: No Current occupational status: disabled Physical Exam Vital Signs: Vital Signs: Last Vital Signs Pulse 88 08/10/22 05:37 Resp 14 08/10/22 05:37 BP 116/70 08/10/22 05:37 Pulse Ox 95 08/10/22 05:37 O2 Del Method 08/10/22 05:37 BMI result Body Mass Index 29.2 Appearance: Alert. Oriented X3. No acute distress. Eyes: No pallor or icterus no nystagmus ENT: Pharynx normal. Oral Mucosa moist Neck: Normal inspection. Neck supple. CVS: Irregularly irregular heart rate 92 beats per minute dextrocardia. Pulses normal. Respiratory: No respiratory distress. Equal air entry bilateral, no wheezing/rales/rhonchi Abdomen: Soft and nontender. Bowel sounds are present, no mass palpable, no CVA tenderness Skin: Skin warm and dry. Normal skin color. Normal skin turgor. Extremities: No lower extremity edema. No calf tenderness Neuro: Oriented X 3. No motor deficit. No sensory deficit.No cerebellar signs , cranial nerves II-XII intact Medications Administered Discontinued Medications Generic Name Dose Route Start Last Admin Trade Name Freq PRN Reason Stop Dose Admin Ondansetron HCl 4 mg 08/10/22 06:11 08/10/22 06:24 Ondansetron Hcl 4 Mg/2 Ml Vial IVPUSH 08/10/22 06:12 4 mg ONCE ONE Administration Medical Decision Making Medical Decision Making MDM Narrative: Patient with paroxysmal AFib heart rate controlled on metoprolol also has anxiety and dizziness orthostatics were normal will give patient meclizine anurag nt had similar history in the past also patient asking for medication to relax will give him Ativan 0.5 mg every night. 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 08/10/22 05:52 08/10/22 05:52 Labs: Lab Results 0108/10/22 08/10/22 Range/Units 05:52 05:52 05:52 WBC 5.6 (4.8-10.8) X10*3/uL RBC 4.90 (4.60-5.80) X10*6/uL Hgb 13.0 L (14.0-18.0) g/dl Hct 40.2 L (42.0-52.0) % MCV 82.0 (80.0-98.0) fL MCH 26.5 L (27.0-33.0) pg MCHC 32.3 (31.0-36.0) g/dl RDW 13.4 (11.0-16.0) % Plt Count 165 (160-400) X10*3/uL MPV 10.6 (9.4-12.4) fL Immature Gran % (Auto) 0.2 (0.0-0.4) % Neut % (Auto) 49.9 (45-73) % Lymph % (Auto) 32.9 (20-40) % Hardin % (Auto) 12.8 H (2-11) % Eos % (Auto) 3.7 (0-4) % Baso % (Auto) 0.5 (0-2) % Lymph # (Auto) 1.9 (1.2-4.9) X10*3/uL Hardin # (Auto) 0.7 (0.1-1.2) X10*3/uL Eos # (Auto) 0.2 (0.0-0.4) X10*3/uL Baso # (Auto) 0.0 (0.0-0.2) X10*3/uL Abs Immat Gran (auto) 0.01 (0.00-0.03) X10*3/uL Absolute Neuts (auto) 2.8 (2.0-8.3) x10*3/uL Absolute Nucleated RBC 0.000 (0.0-0.012) X10*3/uL Nucleated RBC % (auto) 0.0 (0.0-0.2) /100WBC PT (10.0-13.1) SEC INR (0.9-1.1) Sodium 140 (135-145) mmol/L Potassium 3.7 (3.3-5.1) mmol/L Chloride 109 H (96-108) mmol/L Carbon Dioxide 24 (22-29) mmol/L Anion Gap 11 L (12-20) BUN 13 (9-16) mg/dL Creatinine 0.80 (0.5-1.4) mg/dL Estim Creat Clear Calc 130.5 Estimated GFR > 60 Random Glucose 147 H (60-115) mg/dL Calcium 9.4 (8.4-10.2) mg/dL Magnesium 1.9 (1.6-2.6) mg/dL Troponin I High Sens < 3.5 (<3.5-35.0) ng/L 08/10/22 Range/Units 06:03 WBC (4.8-10.8) X10*3/uL RBC (4.60-5.80) X10*6/uL Hgb (14.0-18.0) g/dl Hct (42.0-52.0) % MCV (80.0-98.0) fL MCH (27.0-33.0) pg MCHC (31.0-36.0) g/dl RDW (11.0-16.0) % Plt Count (160-400) X10*3/uL MPV (9.4-12.4) fL Immature Gran % (Auto) (0.0-0.4) % Neut % (Auto) (45-73) % Lymph % (Auto) (20-40) % Hardin % (Auto) (2-11) % Eos % (Auto) (0-4) % Baso % (Auto) (0-2) % Lymph # (Auto) (1.2-4.9) X10*3/uL Hardin # (Auto) (0.1-1.2) X10*3/uL Eos # (Auto) (0.0-0.4) X10*3/uL Baso # (Auto) (0.0-0.2) X10*3/uL Abs Immat Gran (auto) (0.00-0.03) X10*3/uL Absolute Neuts (auto) (2.0-8.3) x10*3/uL Absolute Nucleated RBC (0.0-0.012) X10*3/uL Nucleated RBC % (auto) (0.0-0.2) /100WBC PT 26.1 H (10.0-13.1) SEC INR 2.2 H (0.9-1.1) Sodium (135-145) mmol/L Potassium (3.3-5.1) mmol/L Chloride (96-108) mmol/L Carbon Dioxide (22-29) mmol/L Anion Gap (12-20) BUN (9-16) mg/dL Creatinine (0.5-1.4) mg/dL Estim Creat Clear Calc Estimated GFR Random Glucose (60-115) mg/dL Calcium (8.4-10.2) mg/dL Magnesium (1.6-2.6) mg/dL Troponin I High Sens (<3.5-35.0) ng/L Independent Interpretation I performed an independent interpretation of an: EKG Interpretation: Atrial fibrillation with heart rate 92 beats per minute no acute ST-T no acute ischemia Discharge Plan Discharge Clinical Impression: Atrial fibrillation, Vertigo, peripheral Patient Disposition: Home, Self-Care Instructions: A-fib (Atrial Fibrillation) (ED) Additional Instructions: Continue your metoprolol and Coumadin Take meclizine for dizziness Ativan for anxiety and sleep Follow-up with shelf drier operator Prescriptions: New meclizine 25 mg tablet 25 mg PO TID PRN (Reason: dizziness) Qty: 20 0RF lorazepam [Ativan] 0.5 mg tablet 0.5 mg PO BEDTIME PRN (Reason: anxiety) Qty: 10 0RF No Action warfarin 5 mg Tablet 5 mg PO DAILY Hold Instructions: Resume on 06/02/20. Hold until INR <4 metoprolol succinate 200 mg tablet extended release 24 hr 200 mg PO DAILY Qty: 30 0RF Rx Instructions: replaces prior dose of 100 mg daily; discontinue diltiazem meclizine 25 mg Tablet 25 mg PO Q8H PRN (Reason: dizziness) Qty: 30 0RF metoprolol tartrate 50 mg tablet 1 tab PO BID Entresto 24-26 mg tablet 1 tab PO BID Referrals: Arnie Lizarraga MD [Physician] - 1 week
[2022-08-10 05:59] LABS: MANUAL DIFF FLAG NO
[2022-08-10 06:03] LABS: Basophils Percent Auto 0.5 % (0-2); Eosinophils Absolute Auto 0.2 X10*3/uL (0.0-0.4); Eosinophils Percent Auto 3.7 % (0-4); Hematocrit 40.2 % (42.0-52.0); Imm Gran Abs Auto 0.01 X10*3/uL (0.00-0.03); Imm Gran Pct Auto 0.2 % (0.0-0.4); Lymphocytes Absolute Auto 1.9 X10*3/uL (1.2-4.9); Lymphocytes Percent Auto 32.9 % (20-40); Mean Corpuscular HGB Conc 32.3 g/dl (31.0-36.0); Mean Corpuscular Hemoglobin 26.5 pg (27.0-33.0); Mean Platelet Volume 10.6 fL (9.4-12.4); Monocytes Absolute Auto 0.7 X10*3/uL (0.1-1.2); Monocytes Percent Auto 12.8 % (2-11); Neutrophils Absolute Auto 2.8 x10*3/uL (2.0-8.3); Neutrophils Percent Auto 49.9 % (45-73); Platelet Count 165 X10*3/uL (160-400); Red Cell Distribution Width 13.4 % (11.0-16.0); White Blood Count 5.6 X10*3/uL (4.8-10.8)
[2022-08-10 06:14] LABS: INTERNATIONAL NORM RATIO 2.2 (0.9-1.1); Prothrombin Time 26.1 SEC (10.0-13.1)
[2022-08-10 06:23] LABS: Anion Gap 11 (12-20); Blood Urea Nitrogen 13 mg/dL (9-16); Calcium 9.4 mg/dL (8.4-10.2); Carbon Dioxide 24 mmol/L (22-29); Chloride 109 mmol/L (96-108); Creatinine Clr Calc Pharmacy 130.5; Estimated Glomerular Filt Rate > 60; Glucose Random 147 mg/dL (60-115); Magnesium 1.9 mg/dL (1.6-2.6); Potassium 3.7 mmol/L (3.3-5.1); Sodium 140 mmol/L (135-145)
[2022-08-10] MEDS: ondansetron HCL 4 MG/2 ML VIAL IVPUSH (06:24)
[2022-08-10 06:26] LABS: Troponin-I High Sensitivity < 3.5 ng/L (<3.5-35.0)
[2022-08-10 06:29] VITALS: BP 116/74; PULSE 81
[2022-08-10] MEDS: Meclizine HCl 25 MG TABLET PO (06:44)
[2022-08-10 06:46] VITALS: BP 106/69; PULSE 77
--- NOTE | 2022-08-10 06:48 | PC.NURSE ---
Discharge instructions given and explained, all of pt's questions answered, ambulates safely/independently, no apparent distress, alert and oriented; IV cath tip intact upon removal
== END 2022-08-10 06:48 | disposition home or self-care (01) ==
PROVIDERS: Emergency Provider Internal Medicine
DX: I48.0 Paroxysmal atrial fibrillation (principal); H81.399 Other peripheral vertigo, unspecified ear; F41.9 Anxiety disorder, unspecified; Z95.810 Presence of automatic (implantable) cardiac defibrillator; Z79.01 Long term (current) use of anticoagulants; Z79.899 Other long term (current) drug therapy
CPT/HCPCS: 36415; 71045; 80048; 83735; 84484; 85025; 85610; 93005; 96374; 99284; 99285; J2405

== ENCOUNTER → 2022-08-13 13:30 | Outpatient (BNVA) | payer OTHER, SELFPAY | PROVIDERS: Visit Provider Internal Medicine | DX: I48.19 Other persistent atrial fibrillation (principal); I42.9 Cardiomyopathy, unspecified; Q24.9 Congenital malformation of heart, unspecified | CPT/HCPCS: 99202 ==

== ENCOUNTER 2024-10-18 12:11 | Emergency (ER) | payer OTHER, SELFPAY ==
[2024-10-18] VITALS (18 sets, daily range): BP systolic 77–113; BP diastolic 41–63; PULSE 63–90; RESP 16–20; TEMP 36.4–37; O2SAT 95–98; BMI 25.1
--- NOTE | 2024-10-18 | ECG_ITS ---
Test Reason : syncopal episode Blood Pressure : */* mmHG Vent. Rate : 88 BPM Atrial Rate : * BPM P-R Int : * ms QRS Dur : 102 ms QT Int : 398 ms P-R-T Axes : * 212 153 degrees QTcB Int : 481 ms Atrial fibrillation with premature ventricular or aberrantly conducted complexes Right superior axis deviation Nonspecific ST abnormality Prolonged QT Abnormal ECG When compared with ECG of 10-Aug-2022 05:31, Nonspecific T wave abnormality no longer evident in Inferior leads T wave inversion no longer evident in Anterior leads QT has lengthened Referred By: Generic ED Physician Electronically Signed By: NIKOLAY HOANG
--- NOTE | ~2024-10-18 | CT_ITS ---
EXAMINATION: CT HEAD WITHOUT IV CONTRAST HISTORY: fall, on warfarin, possible headstrike, syncope. TECHNIQUE: Unenhanced helical CT of the head was performed per standard departmental protocol. Coronal and sagittal reformats of the head were also evaluated. One or more of the following techniques was used for dose reduction: Automated exposure control, adjustment of the mA and/or kV according to patient size, use of iterative reconstruction technique. DLP: 711 mGy-cm COMPARISON: Comparison is made with the prior examination dated 05/29/2020. FINDINGS: BRAIN: The brain parenchyma is unremarkable. There is normal kilgore/white differentiation. The ventricular system is normal in size and configuration. There is no mass effect or midline shift. No intra- or extra-axial fluid collections are identified. SINUSES: The visualized paranasal sinuses are clear. The mastoid air cells and middle ear cavities are well pneumatized. ORBITS: The visualized orbits are unremarkable. BONES/SOFT TISSUES: The extracranial soft tissues are unremarkable. The calvarium is intact. No suspicious lytic or sclerotic lesions. CT/CT head/brain wo IV con IMPRESSION: No acute intracranial abnormality. Electronically signed by: Avila Short MD 10/18/2024 03:42 PM EDT
--- NOTE | ~2024-10-18 | CT_ITS ---
EXAMINATION: CT CERVICAL SPINE WITHOUT IV CONTRAST HISTORY: fall, on warfarin, possible headstrike, syncope. TECHNIQUE: Helical CT of the cervical spine was performed per standard departmental protocol. Coronal and sagittal reformatted images were also evaluated. One or more of the following techniques was used for dose reduction: Automated exposure control, adjustment of the mA and/or kV according to patient size, use of iterative reconstruction technique. DLP: 344 mGy-cm COMPARISON: There are no prior studies for comparison. FINDINGS: CERVICAL SPINE: The vertebral bodies maintain normal height and alignment without evidence of fracture or subluxation. There is mild degenerative disc disease at the C5-6 level, with disc space narrowing and osteophyte formation. Evaluation for disc pathology is limited by lack of intrathecal contrast material, however. BRAIN: The visualized portion of the brain is unremarkable. SINUSES: The visualized paranasal sinuses, mastoid air cells and middle ear cavities are unremarkable. LUNG APICES: The visualized lung apices are clear. SOFT TISSUES: The visualized paraspinal soft tissues are unremarkable. CT/CT cervical spine wo IV con IMPRESSION: No evidence of fracture or malalignment of the cervical spine. Electronically signed by: Avila Short MD 10/18/2024 03:46 PM EDT
--- NOTE | ~2024-10-18 | XR_ITS ---
CLINICAL HISTORY: weakness Chest Radiographs, AP Comparison: CR/SR - XR CHEST 1V - 08/10/22 05:37 EST CR/SR - XR CHEST 1V - 11/13/21 22:19 EDT Findings: Dextrocardia. Prominent sized heart status post median sternotomy. Normal mediastinal contours. No pneumothorax. No opacity. No pleural effusion. Normal upper abdomen. No acute fracture. Impression: No acute findings. This document has been electronically signed by: Jasmin Ng MD on 10/18/2024 18:39:06
--- NOTE | 2024-10-18 13:00 | ED_ITS ---
HPI - General Adult General Chief complaint: Fall Stated complaint: DIZZY W/SYCOPE,BP 87/69 PER EMS Time Seen by Provider: 10/18/24 13:00 Source: patient and EMS Mode of arrival: EMS Limitations: no limitations History of Present Illness ED Provider: Marielos Wade PA-C HPI narrative: Patient is a 44 year old assigned male at with a history of persistent atrial fib for which is he on warfarin, cardiomyopathy, and dextrocardia presenting to the emergency department today after a syncopal episode. Patient states that he was in bed and felt dizzy / lightheaded, got up to use the restroom and felt as though he was still dizzy / lightheaded then had a syncopal episode. Patient states that he is out of his ER 200mg Metoprolol and to compensate, he took 50mg immediate release metoprolol x 2 for a total of 100mg at 0900 this morning. Patient denies any abdominal pain, nausea, vomiting, fever, chills, blurry vision, double vision, loss of vision, chest pain, difficulty breathing, shortness of breath, back pain, night sweats, pain with urination, increased urinary frequency, increased urinary urgency, blood in his urine or stool, bowel incontinence, bladder incontinence, or any other complaints at this time. Patient states that when he had his syncopal his episode - he did not believe he hit his head on the ground. Relieving factors: none Exacerbating factors: none Associated symptoms: syncope Treatments prior to arrival: none Related Data Home Medications ?Medication ?Instructions ?Recorded ?Confirmed warfarin 5 mg tablet 5 mg PO DAILY 05/29/20 08/13/22 sacubitril 24 mg-valsartan 26 mg 1 tab PO BID 11/13/21 08/13/22 tablet (Entresto) metoprolol tartrate 50 mg tablet 50 mg PO .COMPLEX 08/13/22 08/13/22 Previous Rx's ?Medication ?Instructions ?Recorded meclizine 25 mg tablet 25 mg PO Q8H PRN dizziness #30 tabs 05/30/20 metoprolol succinate 200 mg 200 mg PO DAILY #30 tabs 05/30/20 tablet,extended release 24 hr lorazepam 0.5 mg tablet (Ativan) 0.5 mg PO BEDTIME PRN anxiety #10 08/10/22 tabs metoprolol succinate 200 mg 200 mg PO DAILY #90 tabs 10/18/24 tablet,extended release 24 hr Allergies Allergy/AdvReac Type Severity Reaction Status Date / Time Penicillins Allergy Unknown RASH,NAUSEA Verified 10/18/24 12:33 ,VOMITING Review of Systems 2 Constitutional: Constitutional: Reports no additional constitutional complaints, Denies chills, Denies fever(s) and Denies night sweats Eyes: Eyes: Reports no additional eye complaints, Denies blurry vision, Denies change in vision, Denies diplopia, Denies eye discharge, Denies loss of vision and Denies eye pain ENT: Reports dizziness Cardiovascular: Cardiovascular: Reports no additional cardiovascular complaints, Denies chest pain, Reports syncope, Denies lightheadedness, Denies Loss of Consciousness and Denies dyspnea Respiratory: Respiratory: Reports no additional respiratory complaints and Denies dyspnea Gastrointestinal: Gastrointestinal: Reports no additional gastrointestinal complaints, Denies abdominal pain, Denies melena, Denies hematochezia, Denies change in bowel habits and Denies change in stool character Genitourinary: Genitourinary: Reports no additional male genitourinary complaints, Denies hematuria, Denies oliguria, Denies difficulty urinating, Denies dysuria, Denies urinary frequency, Denies urinary hesitancy, Denies urinary incontinence and Denies urinary urgency Musculoskeletal: Musculoskeletal: Reports no additional musculoskeletal complaints, Denies numbness and Denies tingling Neurologic: Reports dizziness, Reports syncope, Denies loss of vision, Denies numbness and Denies tingling Psychiatric: Psychiatric: Reports no additional psychiatric complaints Endocrine: Endocrine: Reports no additional endocrine complaints Hematologic/Lymphatic: Hematologic/Lymphatic: Reports no additional hematologic/lymphatic complaints Allergic/Immunologic: Allergic/Immunologic: Reports no additional allergic/immunologic complaints [facility] Past Medical History Attestation statement: The following information was validated with the patient. Source: old records reviewed and nursing notes reviewed Medical History Cardiomyopathy Dextrocardia Afib Aortic valve disease Surgical History History of open heart surgery Family History Family History Mother No problems noted. Father No problems noted. Social History Social History Household Members: Spouse Housing: Apartment Do you presently have visiting nurse or other home services: No Alcohol intake: never Patient Tobacco Use Status: Never used Tobacco Advance Directives: No Advance Directives Information Provided: Yes service: No Current occupational status: disabled Physical Exam ED Vital Signs: Vital Signs - 24 hr 10/18/24 12:26 10/18/24 13:19 10/18/24 13:21 Temperature 97.6 F 98.6 F Pulse Rate 81 89 Respiratory Rate 20 16 Blood Pressure 109/49 L 83/49 L 85/58 L Pulse Oximetry 97 95 Oxygen Delivery Method Room Air Room Air 10/18/24 14:43 10/18/24 16:36 10/18/24 16:36 Temperature 98.6 F Pulse Rate 89 80 Respiratory Rate 20 19 Blood Pressure 99/46 L 77/41 L 83/51 L Pulse Oximetry 96 96 Oxygen Delivery Method Room Air Room Air 10/18/24 16:45 10/18/24 17:02 10/18/24 17:02 Temperature Pulse Rate 84 83 75 Respiratory Rate 16 Blood Pressure 77/41 L 83/51 L 83/51 L Pulse Oximetry 95 Oxygen Delivery Method Room Air 10/18/24 17:29 10/18/24 17:50 10/18/24 18:28 Temperature Pulse Rate 74 74 73 Respiratory Rate Blood Pressure 80/42 L 88/52 L 103/44 L Pulse Oximetry Oxygen Delivery Method 10/18/24 19:03 10/18/24 19:09 10/18/24 19:35 Temperature 97.7 F Pulse Rate 63 70 70 Respiratory Rate 16 16 Blood Pressure 98/47 L 111/59 L 113/56 L Pulse Oximetry 95 Oxygen Delivery Method Room Air 10/18/24 20:05 10/18/24 20:45 10/18/24 21:30 Temperature Pulse Rate 74 82 86 Respiratory Rate 16 16 Blood Pressure 105/63 113/44 L 95/48 L Pulse Oximetry Oxygen Delivery Method 10/18/24 21:35 10/18/24 21:47 Temperature Pulse Rate 87 75 Respiratory Rate 16 16 Blood Pressure 88/55 L 98/53 L Pulse Oximetry Oxygen Delivery Method BMI result Body Mass Index 25.1 Const General: cooperative, no acute distress, alert and awake Nutritional Appearance: well nourished Orientation/consciousness: patient oriented x3 Limitations: no limitations HENMT Head: Yes normal to inspection and Yes atraumatic Ears: hearing grossly normal bilaterally and external ears normal General nose exam: Normal external nose present, no nasal discharge noted and no epistaxis Face and sinus: Yes normal facial exam, No abrasion and No laceration Mouth: Normal oral and palatal mucosa present, no drooling and no muffled voice Eyes General: appearance normal, both eyes and all related structures Periorbital: periorbital findings normal Eyelids: Yes eyelids normal Conjunctivae: conjunctivae normal Pupils: Equal, round and reactive pupils present EOM: EOMs intact bilaterally Neck Neck: Yes normal visual inspection, Yes full ROM and Yes no lymphadenopathy Chest Chest palpation & inspection: normal inspection of the chest Resp Effort & Inspection: normal respiratory effort and able to speak in complete sentences GI Inspection: Yes normal to inspection Neuro General: patient oriented x3, moves all extremities and CN's II-XI intact bilaterally Cranial nerves: Yes Equal, round and reactive pupils present Cognition (Neuro): normal cognition Extrem General: Yes normal to inspection, Yes full ROM and Yes capillary refill normal Psych Appearance: grossly normal Mental Status: mental status grossly normal Affect: normal affect Attitude: cooperative Thought process: Normal thought process present Thought content: Normal thought content present Insight: Good insight present (Psych) Course Reevaluation(s) Reevaluation #1: Dr. Almendarez: I assumed care of this patient at change of shift. The patient had presented several hours earlier with a complaint of feeling dizzy and lightheaded. He apparently had a syncopal episode. Here he was found to have low blood pressures. He reported that he had run out of his usual metoprolol ( 200 mg succinate daily) and instead may have taken 2 tablets of metoprolol tartrate. This is what he 1st reported but later he said that perhaps he had taken 2 tablets of citalopram instead. The patient denied taking anything in overdose and he denied doing anything to harm himself although he says he is under a lot of stress because of a separation from his . The patient was placed on a norepinephrine drip because his blood pressures were low although he did not seem significantly ill otherwise. He had also been given calcium gluconate, magnesium sulfate, and glucagon. He was also given IV fluids. The patient is on warfarin because of a history of atrial fibrillation. He also has dextrocardia. on the norepinephrine the patient's blood pressures were normal and he had no complaints. He denied headache, chest pain, shortness of breath, abdominal pain, nausea, vomiting. He denies having had any fevers, sweats, chills. He is on warfarin because of his atrial fibrillation. He denies any bleeding. No black stools. The patient has medical workup included a CT of the brain that was negative. He also had unremarkable CBC and chemistries. EKG shows atrial fibrillation. After I took over management of the patient I felt it would be reasonable to stop the norepinephrine to see if he still was significantly hypotensive. His blood pressures were low but he was not significantly symptomatic. He was given additional IV fluids. He was given food to eat. I repeated many labs and I felt that his further workup was benign. There is no sign of any bleeding to suggest hypotension from blood loss. His troponins are negative. His oxygenation remains excellent. His abdomen remains benign. He has not been febrile. He denies having taken any intentional overdose, specifically denies acetaminophen or salicylates. He says he does not use IV drugs or alcohol or even marijuana. Ultimately I was able to ambulate the patient several hours after the norepinephrine drip at stopped. His gait was steady. His blood pressure was 111/61 after ambulating. His heart rate was in the 90s. His oxygenation was fine. His respiratory rate was normal. At that point I felt discharge was reasonable. 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 However if he does not feel well or if you feel significantly dizzy or lightheaded he should return to the emergency room for further evaluation. Medications Administered Generic Name Dose Route Start Last Admin Trade Name Freq PRN Reason Stop Dose Admin Norepinephrine Bitartrate 8 mg in 250 mls @ 0 mls/hr 10/18/24 16:45 10/18/24 20:45 Levophed IVCONT 0 mcg/kg/min .Q0M KALIE 0 mls/hr Titration Protocol Per Protocol Discontinued Medications Generic Name Dose Route Start Last Admin Trade Name Freq PRN Reason Stop Dose Admin Glucagon 1 mg 10/18/24 13:36 10/18/24 13:45 Glucagon Hcl 1 Mg Vial IVPUSH 10/18/24 13:37 1 mg ONCE ONE Administration Sodium Chloride 1,000 mls @ 999 mls/hr 10/18/24 13:15 10/18/24 14:43 Ns IV 10/18/24 14:15 Infused .Q1H1M KALIE Infusion Calcium Gluconate 1 gm in 50 mls @ 50 mls/hr 10/18/24 13:36 10/18/24 14:43 Calcium Gluconate IV 10/18/24 14:35 Infused ONCE ONE Infusion Sodium Chloride 500 mls @ 500 mls/hr 10/18/24 16:45 10/18/24 17:29 Ns IV 10/18/24 17:44 Infused .Q1H KALIE Infusion Magnesium Sulfate 2 gm in 50 mls @ 25 mls/hr 10/18/24 19:01 10/18/24 20:45 Magnesium Sulfate/H2o IV 10/18/24 21:00 Infused ONCE ONE Infusion Lactated Ringer's 1,000 mls @ 999 mls/hr 10/18/24 22:15 10/18/24 22:29 Lr IV 10/18/24 23:15 999 mls/hr .Q1H1M KALIE Administration Medical Decision Making Medical Decision Making MDM Narrative: Patient is a 44 year old assigned male at with a history of persistent atrial fib for which is he on warfarin, cardiomyopathy, and dextrocardia presenting to the emergency department today after a syncopal episode. Patient's physical exam showed continued hypotension but was otherwise unremarkable. Patient's blood work was unremarkable. Patient's EKG showed atrial fib with a prolonged QTC but was otherwise unremarkable. Patient's chest x-ray, head CT, and c-spine CT showed no acute process. I explained my physical exam findings as well as all test results to the patient. I answered all questions asked by the patient. I believe the patient's hypotension is secondary to taking 100 total mg of immediate release Metoprolol. Poison control was contacted who recommended symptom management and initiating pressors if needed. Patient received 1L of NS from EMS prior to arrival, 1.5L of NS while in the department, Glucagon, and calcium gluconate but the patient remained hypotensive. Patient was started on IV levophed which improved his blood pressure. Patient signed out to Dr. Kevin Almendarez pending either symptom improvement or ICU admission / transfer. Differential Diagnosis Differential Diagnoses: The differential diagnosis associated with the presentation includes Beta karime overdose Accidental overdose Hypotension Admission/Observation Consideration of admission/observation: Escalation of care including admission/observation considered Patient's disposition will be determined after re-evaluation by Dr. Kevin Almendarez. Lab Data [facility] Lab Attestation statement: I reviewed the patient's lab results. My interpretation of these results are in the [facility] Rationale portion of this note. 10/18/24 17:56 10/18/24 22:45 Labs: Lab Results 10/18/24 10/18/24 10/18/24 Range/Units 12:56 13:42 14:39 WBC 6.5 (4.8-10.8) X10*3/uL RBC 4.51 L (4.60-5.80) X10*6/uL Hgb 12.3 L (14.0-18.0) g/dl Hct 37.5 L (42.0-52.0) % MCV 83.1 (80.0-98.0) fL MCH 27.3 (27.0-33.0) pg MCHC 32.8 (31.0-36.0) g/dl RDW 13.2 (11.0-16.0) % Plt Count 154 L (160-400) X10*3/uL MPV 10.5 (9.4-12.4) fL Immature Gran % (Auto) 0.3 (0.0-0.4) % Neut % (Auto) 66.1 (45-73) % Lymph % (Auto) 21.4 (20-40) % [place] % (Auto) 8.6 (2-11) % Eos % (Auto) 3.1 (0-4) % Baso % (Auto) 0.5 (0-2) % Lymph # (Auto) 1.4 (1.2-4.9) X10*3/uL [place] # (Auto) 0.6 (0.1-1.2) X10*3/uL Eos # (Auto) 0.2 (0.0-0.4) X10*3/uL Baso # (Auto) 0.0 (0.0-0.2) X10*3/uL Abs Immat Gran (auto) 0.02 (0.00-0.03) X10*3/uL Absolute Neuts (auto) 4.3 (2.0-8.3) x10*3/uL Absolute Nucleated RBC 0.000 (0.0-0.012) X10*3/uL Nucleated RBC % (auto) 0.0 (0.0-0.2) /100WBC PT 35.3 H (10.9-12.4) SEC INR 3.0 H (0.9-1.1) VBG pH (7.32-7.43) VBG pCO2 mmHg VBG pO2 mmHg VBG HCO3 (22-26) mmol/L VBG O2 Saturation % VBG Base Excess mmol/L Sodium 141 (135-145) mmol/L Potassium 4.5 (3.3-5.1) mmol/L Chloride 110 H (96-108) mmol/L Carbon Dioxide 27 (22-29) mmol/L Anion Gap 9 L (12-20) BUN 12 (9-16) mg/dL Creatinine 0.75 (0.5-1.4) mg/dL Estim Creat Clear Calc 135.0 Estimated GFR > 60 POC Glucose 91 186 H (60-115) mg/dL Random Glucose 95 (60-115) mg/dL Calcium 8.8 D (8.4-10.2) mg/dL Magnesium 1.8 (1.6-2.6) mg/dL Total Bilirubin 0.6 (0.0-1.0) mg/dL Direct Bilirubin (0.0-0.5) mg/dL AST 19 (5-37) U/L ALT 13 (0-40) U/L Alkaline Phosphatase 71 (39-117) U/L Troponin I High Sens 2.7 (<3.5-35.0) ng/L Total Protein 6.4 L (6.5-8.0) g/dL Albumin 3.9 (3.5-5.0) g/dL Urine Color Urine Appearance Urine pH (5.0-9.0) Ur Specific [place] (1.005-1.025) Urine Protein (Neg-Trace) mg/dL Urine Glucose (UA) (Negative) mg/dL Urine Ketones (Negative) mg/dL Urine Blood (Negative) Urine Nitrite (Negative) Ur Leukocyte Esterase (Negative) Salicylates (15-30) mg/dL Urine Opiates Screen (Not Detect) Ur Buprenorphine Scrn (Not Detect) ng/mL Ur Oxycodone Screen (Not Detect) ng/mL Urine Methadone Screen (Not Detect) ng/mL Urine Fentanyl Screen (Not Detect) Acetaminophen (<30) mcg/mL Ur Barbiturates Screen (Not Detect) Ur Phencyclidine Scrn (Not Detect) Ur Amphetamines Screen (Not Detect) U Benzodiazepines Scrn (Not Detect) Urine Cocaine Screen (Not Detect) U Marijuana (THC) Screen (Not Detect) Influenza Type A (PCR) NEGATIVE (Negative) Influenza Type B (PCR) NEGATIVE (Negative) RSV RNA Qual (PCR) NEGATIVE (Negative) SARS-CoV-2 RNA (RT-PCR) NEGATIVE (Negative) 10/18/24 10/18/24 10/18/24 Range/Units 17:56 19:11 22:45 WBC 10.1 (4.8-10.8) X10*3/uL RBC 4.71 (4.60-5.80) X10*6/uL Hgb 12.8 L (14.0-18.0) g/dl Hct 38.8 L (42.0-52.0) % MCV 82.4 (80.0-98.0) fL MCH 27.2 (27.0-33.0) pg MCHC 33.0 (31.0-36.0) g/dl RDW 13.1 (11.0-16.0) % Plt Count 176 (160-400) X10*3/uL MPV 10.2 (9.4-12.4) fL Immature Gran % (Auto) 0.4 (0.0-0.4) % Neut % (Auto) 73.0 (45-73) % Lymph % (Auto) 17.5 L (20-40) % [place] % (Auto) 7.8 (2-11) % Eos % (Auto) 1.0 (0-4) % Baso % (Auto) 0.3 (0-2) % Lymph # (Auto) 1.8 (1.2-4.9) X10*3/uL [place] # (Auto) 0.8 (0.1-1.2) X10*3/uL Eos # (Auto) 0.1 (0.0-0.4) X10*3/uL Baso # (Auto) 0.0 (0.0-0.2) X10*3/uL Abs Immat Gran (auto) 0.04 H (0.00-0.03) X10*3/uL Absolute Neuts (auto) 7.4 (2.0-8.3) x10*3/uL Absolute Nucleated RBC 0.000 (0.0-0.012) X10*3/uL Nucleated RBC % (auto) 0.0 (0.0-0.2) /100WBC PT (10.9-12.4) SEC INR (0.9-1.1) VBG pH (7.32-7.43) VBG pCO2 mmHg VBG pO2 mmHg VBG HCO3 (22-26) mmol/L VBG O2 Saturation % VBG Base Excess mmol/L Sodium 143 (135-145) mmol/L Potassium 4.0 (3.3-5.1) mmol/L Chloride 114 H (96-108) mmol/L Carbon Dioxide 23 (22-29) mmol/L Anion Gap 10 L (12-20) BUN 11 (9-16) mg/dL Creatinine 0.75 (0.5-1.4) mg/dL Estim Creat Clear Calc 135.0 Estimated GFR > 60 POC Glucose (60-115) mg/dL Random Glucose 92 (60-115) mg/dL Calcium 8.6 (8.4-10.2) mg/dL Magnesium 2.2 (1.6-2.6) mg/dL Total Bilirubin 0.5 (0.0-1.0) mg/dL Direct Bilirubin 0.2 (0.0-0.5) mg/dL AST 18 (5-37) U/L ALT 15 (0-40) U/L Alkaline Phosphatase 69 (39-117) U/L Troponin I High Sens 4.2 D (<3.5-35.0) ng/L Total Protein 5.9 L (6.5-8.0) g/dL Albumin 3.6 (3.5-5.0) g/dL Urine Color Yellow Urine Appearance Clear Urine pH 7.5 (5.0-9.0) Ur Specific [place] <= 1.005 (1.005-1.025) Urine Protein Negative (Neg-Trace) mg/dL Urine Glucose (UA) Negative (Negative) mg/dL Urine Ketones Negative (Negative) mg/dL Urine Blood Negative (Negative) Urine Nitrite Negative (Negative) Ur Leukocyte Esterase Negative (Negative) Salicylates < 5.0 L (15-30) mg/dL Urine Opiates Screen Not Detected (Not Detect) Ur Buprenorphine Scrn Not Detected (Not Detect) ng/mL Ur Oxycodone Screen Not Detected (Not Detect) ng/mL Urine Methadone Screen Not Detected (Not Detect) ng/mL Urine Fentanyl Screen Not Detected (Not Detect) Acetaminophen < 3 (<30) mcg/mL Ur Barbiturates Screen Not Detected (Not Detect) Ur Phencyclidine Scrn Not Detected (Not Detect) Ur Amphetamines Screen Not Detected (Not Detect) U Benzodiazepines Scrn Not Detected (Not Detect) Urine Cocaine Screen Not Detected (Not Detect) U Marijuana (THC) Screen Not Detected (Not Detect) Influenza Type A (PCR) (Negative) Influenza Type B (PCR) (Negative) RSV RNA Qual (PCR) (Negative) SARS-CoV-2 RNA (RT-PCR) (Negative) 10/18/24 Range/Units 22:52 WBC (4.8-10.8) X10*3/uL RBC (4.60-5.80) X10*6/uL Hgb (14.0-18.0) g/dl Hct (42.0-52.0) % MCV (80.0-98.0) fL MCH (27.0-33.0) pg MCHC (31.0-36.0) g/dl RDW (11.0-16.0) % Plt Count (160-400) X10*3/uL MPV (9.4-12.4) fL Immature Gran % (Auto) (0.0-0.4) % Neut % (Auto) (45-73) % Lymph % (Auto) (20-40) % [place] % (Auto) (2-11) % Eos % (Auto) (0-4) % Baso % (Auto) (0-2) % Lymph # (Auto) (1.2-4.9) X10*3/uL [place] # (Auto) (0.1-1.2) X10*3/uL Eos # (Auto) (0.0-0.4) X10*3/uL Baso # (Auto) (0.0-0.2) X10*3/uL Abs Immat Gran (auto) (0.00-0.03) X10*3/uL Absolute Neuts (auto) (2.0-8.3) x10*3/uL Absolute Nucleated RBC (0.0-0.012) X10*3/uL Nucleated RBC % (auto) (0.0-0.2) /100WBC PT (10.9-12.4) SEC INR (0.9-1.1) VBG pH 7.42 (7.32-7.43) VBG pCO2 36 mmHg VBG pO2 64 mmHg VBG HCO3 24 (22-26) mmol/L VBG O2 Saturation 95.0 % VBG Base Excess 0.3 mmol/L Sodium (135-145) mmol/L Potassium (3.3-5.1) mmol/L Chloride (96-108) mmol/L Carbon Dioxide (22-29) mmol/L Anion Gap (12-20) BUN (9-16) mg/dL Creatinine (0.5-1.4) mg/dL Estim Creat Clear Calc Estimated GFR POC Glucose (60-115) mg/dL Random Glucose (60-115) mg/dL Calcium (8.4-10.2) mg/dL Magnesium (1.6-2.6) mg/dL Total Bilirubin (0.0-1.0) mg/dL Direct Bilirubin (0.0-0.5) mg/dL AST (5-37) U/L ALT (0-40) U/L Alkaline Phosphatase (39-117) U/L Troponin I High Sens (<3.5-35.0) ng/L Total Protein (6.5-8.0) g/dL Albumin (3.5-5.0) g/dL Urine Color Urine Appearance Urine pH (5.0-9.0) Ur Specific [place] (1.005-1.025) Urine Protein (Neg-Trace) mg/dL Urine Glucose (UA) (Negative) mg/dL Urine Ketones (Negative) mg/dL Urine Blood (Negative) Urine Nitrite (Negative) Ur Leukocyte Esterase (Negative) Salicylates (15-30) mg/dL Urine Opiates Screen (Not Detect) Ur Buprenorphine Scrn (Not Detect) ng/mL Ur Oxycodone Screen (Not Detect) ng/mL Urine Methadone Screen (Not Detect) ng/mL Urine Fentanyl Screen (Not Detect) Acetaminophen (<30) mcg/mL Ur Barbiturates Screen (Not Detect) Ur Phencyclidine Scrn (Not Detect) Ur Amphetamines Screen (Not Detect) U Benzodiazepines Scrn (Not Detect) Urine Cocaine Screen (Not Detect) U Marijuana (THC) Screen (Not Detect) Influenza Type A (PCR) (Negative) Influenza Type B (PCR) (Negative) RSV RNA Qual (PCR) (Negative) SARS-CoV-2 RNA (RT-PCR) (Negative) Independent Interpretation I performed an independent interpretation of an: EKG, Plain X-Ray and CT Scan Interpretation: My interpretation is in agreement with the radiologist's impression of these imaging studies. L Report Number: [id number]: Total DLP = 1066.00 mGy-cm EXAMINATION: CT CERVICAL SPINE WITHOUT IV CONTRAST HISTORY: fall, on warfarin, possible headstrike, syncope. TECHNIQUE: Helical CT of the cervical spine was performed per standard departmental protocol. Coronal and sagittal reformatted images were also evaluated. One or more of the following techniques was used for dose reduction: Automated exposure control, adjustment of the mA and/or kV according to patient size, use of iterative reconstruction technique. DLP: 344 mGy-cm COMPARISON: There are no prior studies for comparison. FINDINGS: CERVICAL SPINE: The vertebral bodies maintain normal height and alignment without evidence of fracture or subluxation. There is mild degenerative disc disease at the C5-6 level, with disc space narrowing and osteophyte formation. Evaluation for disc pathology is limited by lack of intrathecal contrast material, however. BRAIN: The visualized portion of the brain is unremarkable. SINUSES: The visualized paranasal sinuses, mastoid air cells and middle ear cavities are unremarkable. LUNG APICES: The visualized lung apices are clear. SOFT TISSUES: The visualized paraspinal soft tissues are unremarkable. CT/CT cervical spine wo IV con IMPRESSION: No evidence of fracture or malalignment of the cervical spine. Electronically signed by: Avila Short MD 10/18/2024 03:46 PM EDT Dictated By: Avila Short MD Signed By: Electronically signed by Avila Short MD 10/18/24 1546 Report Number: [id number]: Total DLP = 1066.00 mGy-cm EXAMINATION: CT HEAD WITHOUT IV CONTRAST HISTORY: fall, on warfarin, possible headstrike, syncope. TECHNIQUE: Unenhanced helical CT of the head was performed per standard departmental protocol. Coronal and sagittal reformats of the head were also evaluated. One or more of the following techniques was used for dose reduction: Automated exposure control, adjustment of the mA and/or kV according to patient size, use of iterative reconstruction technique. DLP: 711 mGy-cm COMPARISON: Comparison is made with the prior examination dated 05/29/2020. FINDINGS: BRAIN: The brain parenchyma is unremarkable. There is normal kilgore/white differentiation. The ventricular system is normal in size and configuration. There is no mass effect or midline shift. No intra- or extra-axial fluid collections are identified. SINUSES: The visualized paranasal sinuses are clear. The mastoid air cells and middle ear cavities are well pneumatized. ORBITS: The visualized orbits are unremarkable. BONES/SOFT TISSUES: The extracranial soft tissues are unremarkable. The calvarium is intact. No suspicious lytic or sclerotic lesions. CT/CT head/brain wo IV con IMPRESSION: No acute intracranial abnormality. Electronically signed by: Avila Short MD 10/18/2024 03:42 PM EDT RP Dictated By: Avila Short MD Signed By: Electronically signed by Avila Short MD 10/18/24 1542 CLINICAL HISTORY: weakness Chest Radiographs, AP Comparison: CR/SR - XR CHEST 1V - 08/10/22 05:37 EST CR/SR - XR CHEST 1V - 11/13/21 22:19 EDT Findings: Dextrocardia. Prominent sized heart status post median sternotomy. Normal mediastinal contours. No pneumothorax. No opacity. No pleural effusion. Normal upper abdomen. No acute fracture. Impression: No acute findings. This document has been electronically signed by: Jasmin Ng MD on 10/18/2024 18:39:06 Dictated By: Jasmin Teran MD Signed By: Electronically signed by Jasmin Teran MD 10/18/24 1840 I independently interpreted this EKG and am in agreement with the below findings: Vent. Rate: 88 BPM Atrial Rate: * BPM P-R Int: * ms QRS Dur: 102 ms QT Int: 398 ms P-R-T Axes: * 212 153 degrees QTcB Int: 481 ms Atrial fibrillation with premature ventricular or aberrantly conductedcomplexes Right superior axis deviation Nonspecific ST abnormality Prolonged QT When compared with ECG of 10-Aug-2022 05:31, Nonspecific T wave abnormality no longer evident in Inferior leads T wave inversion no longer evident in Anterior leads QT has lengthened DD/ 1239 Radiology Impression Discussion of test interpretation with radiology: I have reviewed the radiologist's reading. Independent Historian Clinical information obtained from an independent historian. History obtained from or confirmed by: EMS (EMS provided additional history and confirmed the history provided by the patient.) Critical Care Time Critical Care Time Critical Care Time: Yes Total Critical Care Time: 68 Attestation: I spent 68 minutes of Critical Care Time with this patient. This does not include time spent on separately reported billable procedures. Discharge Plan Discharge Clinical Impression: Hypotension, Accidental overdose Patient Disposition: Home, Self-Care Additional Instructions: If you are feeling well tomorrow morning you may resume your normal medications. If you are feeling unwell, especially if you are feeling dizzy as if you might pass out, please return to the emergency room for re-evaluation. If you are feeling well please also contact your primary care doctor's office for a follow up appointment to discuss this episode further. it would also be good to get into see your territory sales manager medical to discuss this episode further as well. eat a good meal when you get home tonight. Change position slowly. If at any point you feel significantly worse return to the emergency room for re-evaluation. Prescriptions: New metoprolol succinate 200 mg tablet extended release 24 hr 200 mg PO DAILY Qty: 90 0RF No Action warfarin 5 mg Tablet 5 mg PO DAILY metoprolol succinate 200 mg tablet extended release 24 hr 200 mg PO DAILY Qty: 30 0RF Rx Instructions: replaces prior dose of 100 mg daily; discontinue diltiazem meclizine 25 mg Tablet 25 mg PO Q8H PRN (Reason: dizziness) Qty: 30 0RF Entresto 24-26 mg tablet 1 tab PO BID metoprolol tartrate 50 mg tablet 50 mg PO .COMPLEX Rx Instructions: 1 tablet AM, 2 tablets PM 50 mg orally; lorazepam [Ativan] 0.5 mg tablet 0.5 mg PO BEDTIME PRN (Reason: anxiety) Qty: 10 0RF Referrals: [facility] [Provider Group] (hypotension) Print Language: Swedish
[2024-10-18 13:01] LABS: MANUAL DIFF FLAG NO
[2024-10-18 13:04] LABS: Basophils Percent Auto 0.5 % (0-2); Eosinophils Absolute Auto 0.2 X10*3/uL (0.0-0.4); Eosinophils Percent Auto 3.1 % (0-4); Hematocrit 37.5 % (42.0-52.0); Hemoglobin 12.3 g/dl (14.0-18.0); Imm Gran Abs Auto 0.02 X10*3/uL (0.00-0.03); Imm Gran Pct Auto 0.3 % (0.0-0.4); Lymphocytes Absolute Auto 1.4 X10*3/uL (1.2-4.9); Lymphocytes Percent Auto 21.4 % (20-40); Mean Corpuscular HGB Conc 32.8 g/dl (31.0-36.0); Mean Corpuscular Hemoglobin 27.3 pg (27.0-33.0); Mean Corpuscular Volume 83.1 fL (80.0-98.0); Mean Platelet Volume 10.5 fL (9.4-12.4); Monocytes Absolute Auto 0.6 X10*3/uL (0.1-1.2); Monocytes Percent Auto 8.6 % (2-11); Neutrophils Absolute Auto 4.3 x10*3/uL (2.0-8.3); Neutrophils Percent Auto 66.1 % (45-73); Platelet Count 154 X10*3/uL (160-400); Red Blood Count 4.51 X10*6/uL (4.60-5.80); Red Cell Distribution Width 13.2 % (11.0-16.0); White Blood Count 6.5 X10*3/uL (4.8-10.8)
[2024-10-18 13:10] LABS: Prothrombin Time 35.3 SEC (10.9-12.4)
[2024-10-18] MEDS: 0.9 % Sodium Chloride 1,000 ML 999 ML IV (13:18)
[2024-10-18 13:20] LABS: Alanine Aminotransferase 13 U/L (0-40); Albumin Level 3.9 g/dL (3.5-5.0); Alkaline Phosphatase 71 U/L (39-117); Anion Gap 9 (12-20); Aspartate Amino Transferase 19 U/L (5-37); Bilirubin Total 0.6 mg/dL (0.0-1.0); Blood Urea Nitrogen 12 mg/dL (9-16); Calcium 8.8 mg/dL (8.4-10.2); Carbon Dioxide 27 mmol/L (22-29); Chloride 110 mmol/L (96-108); Estimated Glomerular Filt Rate > 60; Glucose Random 95 mg/dL (60-115); Magnesium 1.8 mg/dL (1.6-2.6); Potassium 4.5 mmol/L (3.3-5.1); Sodium 141 mmol/L (135-145); Total Protein 6.4 g/dL (6.5-8.0)
[2024-10-18 13:30] LABS: Troponin-I High Sensitivity 2.7 ng/L (<3.5-35.0)
--- NOTE | 2024-10-18 13:36 | PC.NURSE ---
Poison control called in regards for clearance/advise on pt taking 100mg SHORT acting Metoprolol vs his long acting. At this time they are recommending supportive care of fluids, advising POC q1 hour 2 hours.
[2024-10-18 13:42] LABS: Influenza A PCR NEGATIVE (Negative); Influenza B PCR NEGATIVE (Negative); Resp Syncy Virus RNA Qual PCR NEGATIVE (Negative); SARS COV2 PCR INHOUSE NEGATIVE (Negative)
[2024-10-18] MEDS: Calcium Gluconate/NaCl,Iso-Osm 1 GM/50 ML PLAST..BAG IV (13:45)
[2024-10-18] MEDS: glucagon HCL 1 MG VIAL IVPUSH (13:45)
--- OUTSIDE RECORDS SUMMARY | 2024-10-18 14:26 | XMS_ITS | Clinical Summary ---
Author Organization [facility] ity Address [address] [place] [address] Care Team Providers Care White Shoe Ragger Name Role Phone Unavailable Primary Care Provider Unavailabl e Social History Tobacco Use Types Packs/Day Years Used Date Smoking Tobacco: Never Assessed Sex and Gender Information Value Date Recorded Sex Assigned at Not on file Legal Sex Male 4:27 PM EST Gender Identity Not on file Sexual Orientation Not on file Plan of Treatment Health Maintenance Due Date Last Done Comments DTaP,Tdap,and Td Vaccines (1 - Tdap) 1997 Hepatitis B Vaccines (1 of 3 - 19+ 3-dose series) 1997 COVID-19 Vaccine (2023-2 5 season) 2024 Influenza Vaccine (#1) 2024 HIB Vaccines Aged Out No longer eligi ble based on patient's age to complete this topic HPV Vaccines Aged Out No longer eligi ble based on patient's age to complete this topic Hepatitis A Vaccines Aged Out No long er eligible based on patient's age to complete this topic IPV Vaccines Aged Out No longer eligi ble based on patient's age to complete this topic MMR Vaccines Aged Out No longer eligi ble based on patient's age to complete this topic Meningococcal ACWY Vaccine Aged Out N o longer eligible based on patient's age to complete this topic Meningococcal B Vacine Aged Out No lo nger eligible based on patient's age to complete this topic Pneumococcal Vaccine: Pediat rics (0 to 5 Years) and At-Risk Patients (6 to 64 Years) Aged Out No longer eligible b ased on patient's age to complete this topic RSV Immunization Patients Un regine 20 months Aged Out No longer eligible b ased on patient's age to complete this topic Varicella Vaccines Aged Out No longer eligible based on patient's age to complete this topic
[2024-10-18 15:22] LABS: Glucose, Whole Blood 186 mg/dL (60-115)
[2024-10-18 15:22] LABS: Glucose, Whole Blood 91 mg/dL (60-115)
[2024-10-18] MEDS: 0.9 % Sodium Chloride 500 ML IV (16:45)
[2024-10-18] MEDS: Norepinephrine Bitartrate/D5W 8 MG/250 ML PLAST..BAG 7.88 MG IVCONT (16:45)
[2024-10-18 18:02] LABS: MANUAL DIFF FLAG NO
[2024-10-18 18:03] LABS: Basophils Percent Auto 0.3 % (0-2); Eosinophils Absolute Auto 0.1 X10*3/uL (0.0-0.4); Hematocrit 38.8 % (42.0-52.0); Hemoglobin 12.8 g/dl (14.0-18.0); Imm Gran Abs Auto 0.04 X10*3/uL (0.00-0.03); Imm Gran Pct Auto 0.4 % (0.0-0.4); Lymphocytes Absolute Auto 1.8 X10*3/uL (1.2-4.9); Lymphocytes Percent Auto 17.5 % (20-40); Mean Corpuscular Hemoglobin 27.2 pg (27.0-33.0); Mean Corpuscular Volume 82.4 fL (80.0-98.0); Mean Platelet Volume 10.2 fL (9.4-12.4); Monocytes Absolute Auto 0.8 X10*3/uL (0.1-1.2); Monocytes Percent Auto 7.8 % (2-11); Neutrophils Absolute Auto 7.4 x10*3/uL (2.0-8.3); Platelet Count 176 X10*3/uL (160-400); Red Blood Count 4.71 X10*6/uL (4.60-5.80); Red Cell Distribution Width 13.1 % (11.0-16.0); White Blood Count 10.1 X10*3/uL (4.8-10.8)
--- NOTE | 2024-10-18 18:33 | PC.NURSE ---
This RN has been going in and adjusting levo drip, pt currently resting quietly. Family at bedside. Plan to watch pt until 9pm, and determine plan at that time.
[2024-10-18 19:20] LABS: Appearance Urine Clear; Color Urine Yellow; Glucose Urine UA Negative (Negative); Leukocyte Esterase Urine Negative (Negative); Nitrite Urine Negative (Negative); PH 7.5 (5.0-9.0); Specific Gravity - Urine <= 1.005 (1.005-1.025); Urine Blood Negative (Negative); Urine Ketones Negative (Negative); Urine Protein Negative (Neg-Trace)
[2024-10-18 19:31] LABS: Amphetamine Screen Urine Not Detected (Not Detect); Barbiturates, Urine Not Detected (Not Detect); Benzodiazepines Screen Urine Not Detected (Not Detect); Buprenorphine Scr Not Detected (Not Detect); Cannabinoid Screen Urine Not Detected (Not Detect); Cocaine Screen Urine Not Detected (Not Detect); Fentanyl, urine Not Detected (Not Detect); Methadone Screen, Urine Not Detected (Not Detect); Opiate Screen Urine Not Detected (Not Detect); Oxycodone Screen Urine Not Detected (Not Detect); Phencyclidine Screen Urine Not Detected (Not Detect)
[2024-10-18] MEDS: Magnesium Sulfate/H2O 2 GM/50 ML PIGGYBACK IV (19:34)
--- NOTE | 2024-10-18 19:49 | PC.NURSE ---
Magnesium drip running at 50ml/hr via pump. Ok by provider.
--- NOTE | 2024-10-18 19:55 | PC.NURSE ---
Pt reported that he recently filled his antidepressant medication and thought it was more of his metoprolol so he poured it into the the metoprolol bottle, reporting that the tabs look similar. Per his pharmacy, his antidepressant medication is escitalopram 10mg 1 tabl at bedtime. Prescription was refilled on 10/12 but pt only combined the bottles this morning. Provider made aware.
--- NOTE | 2024-10-18 21:32 | PC.NURSE ---
Irwin wallace d/c at 5 hours per provider. VS closely monitored.
[2024-10-18] MEDS: Lactated Ringers 1,000 ML 999 ML IV (22:29)
[2024-10-18 23:03] LABS: Venous Blood Gas Refer to POC result
[2024-10-18 23:06] LABS: VBG Base Excess 0.3 mmol/L; VBG HCO3 24 mmol/L (22-26); VBG pCO2 36 mmHg; VBG pH 7.42 (7.32-7.43); VBG pO2 64 mmHg
[2024-10-18 23:12] LABS: Alanine Aminotransferase 15 U/L (0-40); Albumin Level 3.6 g/dL (3.5-5.0); Alkaline Phosphatase 69 U/L (39-117); Anion Gap 10 (12-20); Aspartate Amino Transferase 18 U/L (5-37); Bilirubin Direct 0.2 mg/dL (0.0-0.5); Bilirubin Total 0.5 mg/dL (0.0-1.0); Blood Urea Nitrogen 11 mg/dL (9-16); Calcium 8.6 mg/dL (8.4-10.2); Carbon Dioxide 23 mmol/L (22-29); Chloride 114 mmol/L (96-108); Estimated Glomerular Filt Rate > 60; Glucose Random 92 mg/dL (60-115); Magnesium 2.2 mg/dL (1.6-2.6); Sodium 143 mmol/L (135-145); Total Protein 5.9 g/dL (6.5-8.0)
[2024-10-18 23:13] LABS: Acetaminophen LAB < 3 mcg/mL (<30); Salicylate < 5.0 mg/dL (15-30)
[2024-10-18 23:19] LABS: Troponin-I High Sensitivity 4.2 ng/L (<3.5-35.0)
[2024-10-19 00:30] VITALS: BP 111/62; PULSE 75; RESP 16; TEMP 37
== END 2024-10-19 00:34 | disposition home or self-care (01) ==
PROVIDERS: Emergency Medicine; Physician Assistant Medical; Emergency Provider Emergency Medicine
DX: I95.9 Hypotension, unspecified (principal); T44.7X1A Poisoning by beta-adrenoreceptor antagonists, accidental (unintentional), initial encounter; R42 Dizziness and giddiness; Y92.009 Unspecified place in unspecified non-institutional (private) residence as the place of occurrence of the external cause; I48.19 Other persistent atrial fibrillation; Z03.818 Encounter for observation for suspected exposure to other biological agents ruled out; Z79.01 Long term (current) use of anticoagulants; Z79.899 Other long term (current) drug therapy
CPT/HCPCS: 0241U; 36415; 70450; 71045; 72125; 80048; 80053; 80076; 80143; 80179; 80307; 81003; 82803; 82947; 83735; 84484; 85025; 85610; 93005; 96361; 96365; 96366; 96367; 96375; 99285; J0613; J1610; J3475; J7120

== ENCOUNTER → 2024-10-18 12:39 | Outpatient (BNV) | payer OTHER, SELFPAY | PROVIDERS: Emergency Provider Emergency Medicine; Visit Provider Internal Medicine | DX: R55 Syncope and collapse (principal); I48.91 Unspecified atrial fibrillation; R94.31 Abnormal electrocardiogram [ECG] [EKG] | CPT/HCPCS: 93010 ==

== ENCOUNTER → 2024-10-18 13:06 | Outpatient (BNV) | payer OTHER, SELFPAY | PROVIDERS: Emergency Provider Emergency Medicine; Visit Provider Radiology Diagnostic Radiology | DX: R53.1 Weakness (principal); R55 Syncope and collapse | CPT/HCPCS: 70450; 71045; 72125 ==

== ENCOUNTER 2024-10-26 14:39 | Emergency (ER) | payer OTHER, SELFPAY ==
[2024-10-26 14:42] VITALS: BP 98/60; PULSE 56; RESP 18; TEMP 36.6; O2SAT 98; BMI 27.3
--- NOTE | 2024-10-26 14:42 | ED_ITS ---
HPI - General Adult General Chief complaint: Dizziness Stated complaint: BP check Time Seen by Provider: 10/26/24 15:35 Source: patient, RN notes reviewed and old records reviewed Mode of arrival: ambulatory Limitations: no limitations History of Present Illness ED Provider: Akash Quintanilla PA-C HPI narrative: 44 yo male with history of afib on Coumadin and metoprolol, cardiomyopathy with EF 30%, dextrocardia who was seen here 10/18 for syncopal episode after taking too much lopressor presents to the ER today for evaluation of lightheadedness and dizziness for the last 2 days. Symptoms happen when he changes position, stands up quickly. He has vision changes where things turn black quickly. No LOC. He denies associated chest pain, SOB, diaphroesis, headache, numbness, tingling, focal weakness, N/V/D or abdominal pain. he reports increased stress, anxiety and lack of sleep. He states he has been on the same dose of lopressor for years - 200 mg in the morning and 50 mg at night. he follows with cardiology in [place]. MD complaint: dizziness Onset (ago): day(s) Location: head Radiation: non-radiation Severity: moderate Pain Consistency: intermittent Relieving factors: none Exacerbating factors: none Associated symptoms: denies other symptoms Treatments prior to arrival: none Related Data Home Medications ?Medication ?Instructions ?Recorded ?Confirmed warfarin 5 mg tablet 5 mg PO DAILY 05/29/20 08/13/22 sacubitril 24 mg-valsartan 26 mg 1 tab PO BID 11/13/21 08/13/22 tablet (Entresto) metoprolol tartrate 50 mg tablet 50 mg PO .COMPLEX 08/13/22 08/13/22 Previous Rx's ?Medication ?Instructions ?Recorded meclizine 25 mg tablet 25 mg PO Q8H PRN dizziness #30 tabs 05/30/20 metoprolol succinate 200 mg 200 mg PO DAILY #30 tabs 05/30/20 tablet,extended release 24 hr lorazepam 0.5 mg tablet (Ativan) 0.5 mg PO BEDTIME PRN anxiety #10 08/10/22 tabs metoprolol succinate 200 mg 200 mg PO DAILY #90 tabs 10/18/24 tablet,extended release 24 hr Allergies Allergy/AdvReac Type Severity Reaction Status Date / Time Penicillins Allergy Unknown RASH,NAUSEA Verified 10/26/24 14:44 ,VOMITING Review of Systems 2 Review of Systems: Yes all other systems are reviewed and are negative [facility] Past Medical History Medical History Cardiomyopathy Dextrocardia Afib Aortic valve disease Surgical History History of open heart surgery Family History Family History Mother No problems noted. Father No problems noted. Social History Social History Household Members: Spouse Housing: Apartment Do you presently have visiting nurse or other home services: No Alcohol intake: never Patient Tobacco Use Status: Never used Tobacco Advance Directives: No Advance Directives Information Provided: Yes Do you have a plan to hurt others: No Plan service: No Current occupational status: disabled Physical Exam ED Vital Signs: Vital Signs - 24 hr 10/26/24 14:42 10/26/24 15:34 10/26/24 16:07 Temperature 98 F 97.9 F Pulse Rate 56 59 61 Respiratory Rate 18 16 Blood Pressure 98/60 100/29 L 113/63 Pulse Oximetry 98 95 Oxygen Delivery Method Room Air 10/26/24 16:08 Temperature Pulse Rate 65 Respiratory Rate Blood Pressure 92/61 Pulse Oximetry Oxygen Delivery Method BMI result Body Mass Index 27.3 Appearance: Alert. Oriented X3. No acute distress. Head: normocephalic, atraumatic. Eyes: Pupils equal, round and reactive to light. ENT: Pharynx normal. No tonsillar swelling or exudate. Neck: Normal inspection. Neck supple. CVS: irregularly irregular, rate is normal, auscultated on the right side of the chest Respiratory: No respiratory distress. Breath sounds normal. Abdomen: Soft and nontender. +BS x4 Skin: Skin warm and dry. Normal skin color. Normal skin turgor. No rashes. Extremities: No lower extremity edema. No joint swelling. Neuro/psych: Oriented X 3. No motor deficit. No sensory deficit. CN II-XII intact. Normal speech and cognition. Course Course Course Narrative: RME, this is a rapid medical exam performed by Alessandro Storm please refer to primary provider for complete H&P- 44-year-old male presents for evaluation of intermittent dizziness. The patient does have a history of atrial fibrillation. He is on Coumadin. He describes vertigo as he reports that occasionally the room is spinning. Plan for EKG, labs and orthostatic vital signs. Medical Decision Making Medical Decision Making [facility] Narrative: 44 yo male w/ hx afib on coumadin, dextrocardia, CMP presenting with positional lightheaded and dizziness that is transient. soft BP on arrival. orthostatic VS are negative. HR 50-60s with SBP 90-100s. suspect his lopressor dosing is contributing to his symptoms. his lab workup is unremarkable. his EKG is showing afib w/ aberrancy. at this time would advise decreasing lopressor dose from 200 to 100 in the morning and continue 50 qhs. he was here last week with similar symptoms - he reports he did not take double lopressor at that time and it was actually his depression med he accidentally took two of once. advised to call his industrial sales engineer tomorrow to make aware of ER visits, HR, BP and advise of suggestion of med adjustment. advised to monitor HR and BP closely at home comfortable with discharge home with outpatient cardiology follow up. patient agrees with plan and all questions were answered Differential Diagnosis Differential Diagnoses: The differential diagnosis associated with the presentation includes orthostatic hypotension, adverse effect of metoprolol, vertigo, dehydration, ELLEN, metabolic derangement, viral syndrome, CVA Admission/Observation Consideration of admission/observation: Escalation of care including admission/observation considered Lab Data [facility] Lab Attestation statement: I reviewed the patient's lab results. stable mild, normocytic anemia, lytes stable 10/26/24 14:58 10/26/24 14:58 Labs: Lab Results 10/26/24 Range/Units 14:58 WBC 5.4 (4.8-10.8) X10*3/uL RBC 5.02 (4.60-5.80) X10*6/uL Hgb 13.4 L (14.0-18.0) g/dl Hct 40.9 L (42.0-52.0) % MCV 81.5 (80.0-98.0) fL MCH 26.7 L (27.0-33.0) pg MCHC 32.8 (31.0-36.0) g/dl RDW 13.6 (11.0-16.0) % Plt Count 181 (160-400) X10*3/uL MPV 10.1 (9.4-12.4) fL Immature Gran % (Auto) 0.4 (0.0-0.4) % Neut % (Auto) 55.7 (45-73) % Lymph % (Auto) 24.4 (20-40) % Wright % (Auto) 16.3 H (2-11) % Eos % (Auto) 2.6 (0-4) % Baso % (Auto) 0.6 (0-2) % Lymph # (Auto) 1.3 (1.2-4.9) X10*3/uL Wright # (Auto) 0.9 (0.1-1.2) X10*3/uL Eos # (Auto) 0.1 (0.0-0.4) X10*3/uL Baso # (Auto) 0.0 (0.0-0.2) X10*3/uL Abs Immat Gran (auto) 0.02 (0.00-0.03) X10*3/uL Absolute Neuts (auto) 3.0 (2.0-8.3) x10*3/uL Absolute Nucleated RBC 0.000 (0.0-0.012) X10*3/uL Nucleated RBC % (auto) 0.0 (0.0-0.2) /100WBC PT 24.8 H D (10.9-12.4) SEC INR 2.1 H (0.9-1.1) Sodium 139 (135-145) mmol/L Potassium 4.1 (3.3-5.1) mmol/L Chloride 109 H (96-108) mmol/L Carbon Dioxide 25 (22-29) mmol/L Anion Gap 9 L (12-20) BUN 12 (9-16) mg/dL Creatinine 0.76 (0.5-1.4) mg/dL Estim Creat Clear Calc 121.4 Estimated GFR > 60 Random Glucose 101 (60-115) mg/dL Calcium 9.6 D (8.4-10.2) mg/dL Magnesium 2.1 (1.6-2.6) mg/dL Total Bilirubin 0.5 (0.0-1.0) mg/dL AST 36 (5-37) U/L ALT 28 (0-40) U/L Alkaline Phosphatase 91 (39-117) U/L Total Protein 7.3 (6.5-8.0) g/dL Albumin 4.5 (3.5-5.0) g/dL Lipase 29 (8-78) U/L Influenza Type A (PCR) NEGATIVE (Negative) Influenza Type B (PCR) NEGATIVE (Negative) RSV RNA Qual (PCR) NEGATIVE (Negative) SARS-CoV-2 RNA (RT-PCR) NEGATIVE (Negative) Independent Interpretation I performed an independent interpretation of an: EKG and Plain X-Ray Interpretation: cxr with cabg wires, heart on the right side of the chest, no acute abnormality ekg with afib, aberrant conduction, HR 64, no ST segment elevations Radiology Impression Discussion of test interpretation with radiology: I have reviewed the radiologist's reading. External Record Review External record reviewed: Outpatient record, Prior outpatient labs and Prior outpatient radiology Prescription Management I considered prescription management with: Other (meclizine) Critical Care Time Critical Care Time Critical Care Time: No Discharge Plan Discharge Clinical Impression: Dizziness Patient Disposition: Home, Self-Care Instructions: Dizziness (ED) Additional Instructions: recommend cutting your morning metoprolol to 100 mg and continuing your nightly metoprolol of 50 mg to total 150 mg per day follow up with your industrial sales engineer - call the office tomorrow and tell them you have been in the ER twice in 1 week with soft blood pressures and heart rates in the 50-60s your dizziness and lightheadedness is most likely from too much metoprolol causing your BP to be soft and HR low recommend monitoring your BP and heart rate 2 times per day at home and keeping a written log for your doctor when you change positions, do so slowly If you develop new or worsening symptoms call 911 or come back to the ER for further evaluation. Prescriptions: No Action warfarin 5 mg Tablet 5 mg PO DAILY metoprolol succinate 200 mg tablet extended release 24 hr 200 mg PO DAILY Qty: 30 0RF Rx Instructions: replaces prior dose of 100 mg daily; discontinue diltiazem meclizine 25 mg Tablet 25 mg PO Q8H PRN (Reason: dizziness) Qty: 30 0RF Entresto 24-26 mg tablet 1 tab PO BID metoprolol tartrate 50 mg tablet 50 mg PO .COMPLEX Rx Instructions: 1 tablet AM, 2 tablets PM 50 mg orally; lorazepam [Ativan] 0.5 mg tablet 0.5 mg PO BEDTIME PRN (Reason: anxiety) Qty: 10 0RF metoprolol succinate 200 mg tablet extended release 24 hr 200 mg PO DAILY Qty: 90 0RF Print Language: Samoan
--- NOTE | 2024-10-26 14:42 | ECG_ITS ---
Test Reason : DIZZINESS Blood Pressure : */* mmHG Vent. Rate : 64 BPM Atrial Rate : * BPM P-R Int : * ms QRS Dur : 118 ms QT Int : 388 ms P-R-T Axes : * 210 174 degrees QTcB Int : 400 ms Atrial fibrillation with premature ventricular or aberrantly conducted complexes Possible Anterolateral infarct , age undetermined Abnormal ECG When compared with ECG of 18-Oct-2024 12:39, Borderline criteria for Anterolateral infarct are now Present Nonspecific T wave abnormality, worse in Anterior leads Nonspecific T wave abnormality has replaced inverted T waves in Lateral leads QT has shortened Referred By: Jared Storm Electronically Signed By: Arnie Lizarraga
[2024-10-26 15:06] LABS: MANUAL DIFF FLAG NO
[2024-10-26 15:08] LABS: Basophils Percent Auto 0.6 % (0-2); Eosinophils Absolute Auto 0.1 X10*3/uL (0.0-0.4); Eosinophils Percent Auto 2.6 % (0-4); Hematocrit 40.9 % (42.0-52.0); Hemoglobin 13.4 g/dl (14.0-18.0); Imm Gran Abs Auto 0.02 X10*3/uL (0.00-0.03); Imm Gran Pct Auto 0.4 % (0.0-0.4); Lymphocytes Absolute Auto 1.3 X10*3/uL (1.2-4.9); Lymphocytes Percent Auto 24.4 % (20-40); Mean Corpuscular HGB Conc 32.8 g/dl (31.0-36.0); Mean Corpuscular Hemoglobin 26.7 pg (27.0-33.0); Mean Corpuscular Volume 81.5 fL (80.0-98.0); Mean Platelet Volume 10.1 fL (9.4-12.4); Monocytes Absolute Auto 0.9 X10*3/uL (0.1-1.2); Monocytes Percent Auto 16.3 % (2-11); Neutrophils Percent Auto 55.7 % (45-73); Platelet Count 181 X10*3/uL (160-400); Red Blood Count 5.02 X10*6/uL (4.60-5.80); Red Cell Distribution Width 13.6 % (11.0-16.0); White Blood Count 5.4 X10*3/uL (4.8-10.8)
[2024-10-26 15:13] LABS: INTERNATIONAL NORM RATIO 2.1 (0.9-1.1); Prothrombin Time 24.8 SEC (10.9-12.4)
[2024-10-26 15:34] VITALS: BP 100/29; PULSE 59; RESP 16; TEMP 36.6; O2SAT 95
[2024-10-26 15:37] LABS: Albumin Level 4.5 g/dL (3.5-5.0); Alkaline Phosphatase 91 U/L (39-117); Anion Gap 9 (12-20); Aspartate Amino Transferase 36 U/L (5-37); Bilirubin Total 0.5 mg/dL (0.0-1.0); Blood Urea Nitrogen 12 mg/dL (9-16); Calcium 9.6 mg/dL (8.4-10.2); Carbon Dioxide 25 mmol/L (22-29); Chloride 109 mmol/L (96-108); Creatinine Clr Calc Pharmacy 121.4; Estimated Glomerular Filt Rate > 60; Glucose Random 101 mg/dL (60-115); Lipase 29 U/L (8-78); Magnesium 2.1 mg/dL (1.6-2.6); Potassium 4.1 mmol/L (3.3-5.1); Sodium 139 mmol/L (135-145); Total Protein 7.3 g/dL (6.5-8.0)
[2024-10-26 15:49] LABS: Influenza A PCR NEGATIVE (Negative); Influenza B PCR NEGATIVE (Negative); Resp Syncy Virus RNA Qual PCR NEGATIVE (Negative); SARS COV2 PCR INHOUSE NEGATIVE (Negative)
[2024-10-26 15:50] LABS: Alanine Aminotransferase 28 U/L (0-40)
[2024-10-26 16:07] VITALS: BP 113/63; PULSE 61
[2024-10-26 16:08] VITALS: BP 92/61; PULSE 65
[2024-10-26 17:35] VITALS: BP 92/61; PULSE 65; RESP 14; TEMP 36.6; O2SAT 100
--- OUTSIDE RECORDS SUMMARY | 2024-10-26 18:02 | XMS_ITS | Clinical Summary ---
Author Organization [facility] ity Address [address] [place] [address] Care Team Providers Care Felt Cementer Name Role Phone Unavailable Primary Care Provider [...] age to complete this topic Meningococcal B Vaccine Aged Out No l onger eligible based on patient's age to complete [...]
== END 2024-10-26 17:36 | disposition home or self-care (01) ==
PROVIDERS: Physician Assistant; Emergency Provider Emergency Medicine Emergency Medical Services
DX: R42 Dizziness and giddiness (principal); I48.91 Unspecified atrial fibrillation; Z03.818 Encounter for observation for suspected exposure to other biological agents ruled out; Z79.01 Long term (current) use of anticoagulants
CPT/HCPCS: 0241U; 36415; 80053; 83690; 83735; 85025; 85610; 93005; 99283; 99285

== ENCOUNTER → 2024-10-26 14:42 | Outpatient (BNV) | payer OTHER, SELFPAY | PROVIDERS: Visit Provider Internal Medicine Cardiovascular Disease | DX: R42 Dizziness and giddiness (principal); I48.91 Unspecified atrial fibrillation; R94.31 Abnormal electrocardiogram [ECG] [EKG] | CPT/HCPCS: 93010 ==

== ENCOUNTER 2024-11-14 20:16 | Emergency (ER) | payer OTHER, SELFPAY ==
--- NOTE | ~2024-11-14 | CT_ITS ---
CLINICAL HISTORY: Dizziness CT head without contrast. COMPARISON: CT head dated 10/18/24 at 15:17 EDT FINDINGS: Mucosal thickening present within the right maxillary sinus. Mastoid air cells are clear. No calvarial fracture. No evidence for mass or mass effect. No intracranial hemorrhage or abnormal extra-axial fluid collection. No evidence of hydrocephalus. The basilar cisterns are patent. Posterior fossa appears unremarkable. IMPRESSION: 1. No acute intracranial findings. This document has been electronically signed by: Clark Mahoney MD on 11/14/2024 21:03:36
[2024-11-14 20:17] VITALS: BP 102/55; PULSE 70; RESP 18; TEMP 36.6; O2SAT 96; BMI 27.8
--- NOTE | 2024-11-14 20:22 | ECG_ITS ---
Test Reason : DIZZINESS Blood Pressure : */* mmHG Vent. Rate : 58 BPM Atrial Rate : * BPM P-R Int : * ms QRS Dur : 118 ms QT Int : 424 ms P-R-T Axes : * 211 127 degrees QTcB Int : 416 ms Atrial fibrillation with slow ventricular response Right superior axis deviation Non-specific intra-ventricular conduction delay Nonspecific T wave abnormality Abnormal ECG When compared with ECG of 26-Oct-2024 14:45, Borderline criteria for Anterolateral infarct are no longer Present Referred By: Jovan Carreon Electronically Signed By: Arnie Lizarraga
--- NOTE | 2024-11-14 20:24 | ED.GENADULT ---
HPI - General Adult General Chief complaint: Dizziness Stated complaint: Dizziness, light headed Time Seen by Provider: 11/14/24 21:12 Source: patient Mode of arrival: ambulatory Limitations: no limitations History of Present Illness ED Provider: HPI narrative: 44 yo male with history of afib on Coumadin and metoprolol, cardiomyopathy with EF 30%, dextrocardia who was seen here 10/18 for syncopal episode after taking too much lopressor presents to the ER today for evaluation of dizziness which is going on for more than 1 year was prescribed meclizine in the past with he is not taking her seen chiropractor also 2 times last time he was seen here was 10/[address] was negative labs were stable and patient was advised to decrease the dose of metoprolol 200 mg to 100 mg in the morning and 50 in the evening, patient has been doing this in his still feeling dizziness which is mostly vertigo mostly happens whenever he moves his head no tinnitus no loss of coordination no focal weakness Related Data Home Medications ?Medication ?Instructions ?Recorded ?Confirmed warfarin 5 mg tablet 5 mg PO DAILY 05/29/20 08/13/22 sacubitril 24 mg-valsartan 26 mg 1 tab PO BID 11/13/21 08/13/22 tablet (Entresto) metoprolol tartrate 50 mg tablet 50 mg PO .COMPLEX 08/13/22 08/13/22 Previous Rx's ?Medication ?Instructions ?Recorded meclizine 25 mg tablet 25 mg PO Q8H PRN dizziness #30 tabs 05/30/20 metoprolol succinate 200 mg 200 mg PO DAILY #30 tabs 05/30/20 tablet,extended release 24 hr lorazepam 0.5 mg tablet (Ativan) 0.5 mg PO BEDTIME PRN anxiety #10 08/10/22 tabs metoprolol succinate 200 mg 200 mg PO DAILY #90 tabs 10/18/24 tablet,extended release 24 hr meclizine 25 mg tablet 25 mg PO TID PRN dizziness #20 tabs 11/14/24 Allergies Allergy/AdvReac Type Severity Reaction Status Date / Time Penicillins Allergy Unknown RASH,NAUSEA Verified 11/14/24 20:19 ,VOMITING Review of Systems Review of Systems: Yes all other systems are reviewed and are negative PMFSH Past Medical History Medical History Cardiomyopathy Dextrocardia Afib Aortic valve disease Surgical History History of open heart surgery Family History Family History Mother No problems noted. Father No problems noted. Social History Social History Household Members: Spouse Housing: Apartment Do you presently have visiting nurse or other home services: No Alcohol intake: never Patient Tobacco Use Status: Never used Tobacco Advance Directives: No Advance Directives Information Provided: No service: No Current occupational status: disabled Physical Exam ED Vital Signs: Vital Signs - 24 hr 11/14/24 20:17 11/14/24 22:08 11/14/24 22:09 Temperature 97.9 F Pulse Rate 70 73 79 Respiratory Rate 18 Blood Pressure 102/55 L 103/56 L 96/61 Pulse Oximetry 96 Oxygen Delivery Method Room Air 11/14/24 22:10 11/14/24 22:12 11/14/24 22:38 Temperature 97.4 F 97.4 F Pulse Rate 83 83 83 Respiratory Rate 16 16 Blood Pressure 104/64 104/64 104/64 Pulse Oximetry 98 98 Oxygen Delivery Method Room Air Room Air BMI result Body Mass Index 27.8 Appearance: Alert. Oriented X3. No acute distress. Eyes: PERRLA, No Nystagmus ENT: Pharynx normal. Oral Mucosa moist Neck: Normal inspection. Neck supple. CVS: Irregularly irregular heart rate 58 beats per minute. Pulses normal. Respiratory: No respiratory distress. Equal air entry bilateral, no wheezing/rales/rhonchi Abdomen: Soft and nontender. Bowel sounds are present, no mass palpable, no CVA tenderness Skin: Skin warm and dry. Normal skin color. Normal skin turgor. Extremities: No lower extremity edema. No calf tenderness Neuro: Oriented X 3. No motor deficit. No sensory deficit.No cerebellar signs , cranial nerves II-XII intact Course Course Course Narrative: RME: 44 yold male with pmh of right sided heart presents tot he ED for dizziness describes room spinning on change of position. Patient denies any slurred speech, facial droop or paralysis of extremities. NIH score is 0. Labs EKG head CT scan orthostatics ordered Medications Administered Discontinued Medications Generic Name Dose Route Start Last Admin Trade Name Freq PRN Reason Stop Dose Admin Meclizine HCl 50 mg 11/14/24 21:39 11/14/24 22:14 Meclizine Hcl 25 Mg Tablet PO 11/14/24 21:40 50 mg ONCE ONE Administration Medical Decision Making Medical Decision Making [facility] Narrative: Patient with normal orthostatic with vertiginous feeling for more than 1 year been seen multiple times was seen here on 10/[address] scan that time which was normal today also patient has had labs and CT scan done which were negative Will prescribe the patient meclizine advised to follow with ENT Differential Diagnosis Differential Diagnoses: The differential diagnosis associated with the presentation includes Orthostatic hypotension/vertigo/atrial fibrillation Lab Data [facility] Lab Attestation statement: I reviewed the patient's lab results. 11/14/24 21:02 11/14/24 21:02 Labs: Lab Results 11/14/24 Range/Units 21:02 WBC 7.3 (4.8-10.8) X10*3/uL RBC 4.46 L (4.60-5.80) X10*6/uL Hgb 12.1 L (14.0-18.0) g/dl Hct 36.6 L (42.0-52.0) % MCV 82.1 (80.0-98.0) fL MCH 27.1 (27.0-33.0) pg MCHC 33.1 (31.0-36.0) g/dl RDW 13.4 (11.0-16.0) % Plt Count 218 (160-400) X10*3/uL MPV 9.8 (9.4-12.4) fL Immature Gran % (Auto) 0.4 (0.0-0.4) % Neut % (Auto) 62.9 (45-73) % Lymph % (Auto) 23.4 (20-40) % [place] % (Auto) 10.4 (2-11) % Eos % (Auto) 2.5 (0-4) % Baso % (Auto) 0.4 (0-2) % Lymph # (Auto) 1.7 (1.2-4.9) X10*3/uL [place] # (Auto) 0.8 (0.1-1.2) X10*3/uL Eos # (Auto) 0.2 (0.0-0.4) X10*3/uL Baso # (Auto) 0.0 (0.0-0.2) X10*3/uL Abs Immat Gran (auto) 0.03 (0.00-0.03) X10*3/uL Absolute Neuts (auto) 4.6 (2.0-8.3) x10*3/uL Absolute Nucleated RBC 0.000 (0.0-0.012) X10*3/uL Nucleated RBC % (auto) 0.0 (0.0-0.2) /100WBC PT 26.3 H (10.9-12.4) SEC INR 2.3 H (0.9-1.1) APTT 37.0 H (26.0-36.8) SEC Sodium 141 (135-145) mmol/L Potassium 4.1 (3.3-5.1) mmol/L Chloride 109 H (96-108) mmol/L Carbon Dioxide 20 L (22-29) mmol/L Anion Gap 16 (12-20) BUN 19 H (9-16) mg/dL Creatinine 0.75 (0.5-1.4) mg/dL Estim Creat Clear Calc 133.2 Estimated GFR > 60 Random Glucose 95 (60-115) mg/dL Calcium 9.5 (8.4-10.2) mg/dL Total Bilirubin 0.5 (0.0-1.0) mg/dL AST 24 (5-37) U/L ALT 21 (0-40) U/L Alkaline Phosphatase 82 (39-117) U/L Troponin I High Sens 6.4 D (<3.5-35.0) ng/L Total Protein 7.1 (6.5-8.0) g/dL Albumin 4.1 (3.5-5.0) g/dL Independent Interpretation I performed an independent interpretation of an: CT Scan Radiology Impression Discussion of test interpretation with radiology: I have reviewed the radiologist's reading. Discharge Plan Discharge Clinical Impression: Benign paroxysmal positional vertigo Patient Disposition: Home, Self-Care Instructions: Benign Paroxysmal Positional Vertigo (ED) Additional Instructions: Care and cautions as advised Medication as prescribed Follow up with your PCP/ENT Prescriptions: New meclizine 25 mg tablet 25 mg PO TID PRN (Reason: dizziness) Qty: 20 0RF No Action warfarin 5 mg Tablet 5 mg PO DAILY metoprolol succinate 200 mg tablet extended release 24 hr 200 mg PO DAILY Qty: 30 0RF Rx Instructions: replaces prior dose of 100 mg daily; discontinue diltiazem meclizine 25 mg Tablet 25 mg PO Q8H PRN (Reason: dizziness) Qty: 30 0RF Entresto 24-26 mg tablet 1 tab PO BID metoprolol tartrate 50 mg tablet 50 mg PO .COMPLEX Rx Instructions: 1 tablet AM, 2 tablets PM 50 mg orally; lorazepam [Ativan] 0.5 mg tablet 0.5 mg PO BEDTIME PRN (Reason: anxiety) Qty: 10 0RF metoprolol succinate 200 mg tablet extended release 24 hr 200 mg PO DAILY Qty: 90 0RF Referrals: Gerardo Paul [Physician] - 1 week Interventions: ED Discharge Assessment Last Done: 11/14/24 22:38 Discharge Date/Time: 11/14/24 22:45 Print Language: Vietnamese
[2024-11-14 21:06] LABS: MANUAL DIFF FLAG NO
[2024-11-14 21:07] LABS: Basophils Percent Auto 0.4 % (0-2); Eosinophils Absolute Auto 0.2 X10*3/uL (0.0-0.4); Eosinophils Percent Auto 2.5 % (0-4); Hematocrit 36.6 % (42.0-52.0); Hemoglobin 12.1 g/dl (14.0-18.0); Imm Gran Abs Auto 0.03 X10*3/uL (0.00-0.03); Imm Gran Pct Auto 0.4 % (0.0-0.4); Lymphocytes Absolute Auto 1.7 X10*3/uL (1.2-4.9); Lymphocytes Percent Auto 23.4 % (20-40); Mean Corpuscular HGB Conc 33.1 g/dl (31.0-36.0); Mean Corpuscular Hemoglobin 27.1 pg (27.0-33.0); Mean Corpuscular Volume 82.1 fL (80.0-98.0); Mean Platelet Volume 9.8 fL (9.4-12.4); Monocytes Absolute Auto 0.8 X10*3/uL (0.1-1.2); Monocytes Percent Auto 10.4 % (2-11); Neutrophils Absolute Auto 4.6 x10*3/uL (2.0-8.3); Neutrophils Percent Auto 62.9 % (45-73); Platelet Count 218 X10*3/uL (160-400); Red Blood Count 4.46 X10*6/uL (4.60-5.80); Red Cell Distribution Width 13.4 % (11.0-16.0); White Blood Count 7.3 X10*3/uL (4.8-10.8)
[2024-11-14 21:12] LABS: INTERNATIONAL NORM RATIO 2.3 (0.9-1.1); Prothrombin Time 26.3 SEC (10.9-12.4)
[2024-11-14 21:28] LABS: Troponin-I High Sensitivity 6.4 ng/L (<3.5-35.0)
[2024-11-14 21:43] LABS: Alanine Aminotransferase 21 U/L (0-40); Albumin Level 4.1 g/dL (3.5-5.0); Alkaline Phosphatase 82 U/L (39-117); Anion Gap 16 (12-20); Aspartate Amino Transferase 24 U/L (5-37); Bilirubin Total 0.5 mg/dL (0.0-1.0); Blood Urea Nitrogen 19 mg/dL (9-16); Calcium 9.5 mg/dL (8.4-10.2); Carbon Dioxide 20 mmol/L (22-29); Chloride 109 mmol/L (96-108); Creatinine Clr Calc Pharmacy 133.2; Estimated Glomerular Filt Rate > 60; Glucose Random 95 mg/dL (60-115); Potassium 4.1 mmol/L (3.3-5.1); Sodium 141 mmol/L (135-145); Total Protein 7.1 g/dL (6.5-8.0)
[2024-11-14 22:08] VITALS: BP 103/56; PULSE 73
[2024-11-14 22:09] VITALS: BP 96/61; PULSE 79
[2024-11-14 22:10] VITALS: BP 104/64; PULSE 83
[2024-11-14 22:12] VITALS: BP 104/64; PULSE 83; RESP 16; TEMP 36.3; O2SAT 98
[2024-11-14] MEDS: Meclizine HCl 25 MG TABLET 50 MG PO (22:14)
[2024-11-14 22:38] VITALS: BP 104/64; PULSE 83; RESP 16; TEMP 36.3; O2SAT 98
== END 2024-11-14 22:45 | disposition home or self-care (01) ==
PROVIDERS: Physician Assistant; Emergency Provider Internal Medicine
DX: H81.10 Benign paroxysmal vertigo, unspecified ear (principal); I48.91 Unspecified atrial fibrillation; I42.9 Cardiomyopathy, unspecified; Z79.01 Long term (current) use of anticoagulants; Z79.899 Other long term (current) drug therapy
CPT/HCPCS: 36415; 70450; 80053; 84484; 85025; 85610; 85730; 93005; 99284

== ENCOUNTER → 2024-11-14 20:22 | Outpatient (BNV) | payer OTHER, SELFPAY | PROVIDERS: Emergency Provider Internal Medicine; Visit Provider Radiology Diagnostic Radiology | DX: R42 Dizziness and giddiness (principal) | CPT/HCPCS: 70450 ==

== ENCOUNTER → 2024-11-14 20:22 | Outpatient (BNV) | payer OTHER, SELFPAY | PROVIDERS: Emergency Provider Internal Medicine; Visit Provider Internal Medicine Cardiovascular Disease | DX: I48.91 Unspecified atrial fibrillation (principal); I45.9 Conduction disorder, unspecified | CPT/HCPCS: 93010 ==

== ENCOUNTER 2025-04-02 13:08 | Emergency (ER) | payer OTHER, SELFPAY ==
--- NOTE | ~2025-04-02 | XR_ITS ---
CLINICAL HISTORY: weakness 2 view chest x-ray Comparison: CR - XR CHEST 1V - 10/18/24 18:01 EDT CR/SR - XR CHEST 1V - 08/10/22 05:37 EST Findings: No consolidation or effusion. Heart size is normal. No acute fracture. Dextrocardia. Right aortic arch. [place] in versus. Prior sternotomy. IMPRESSION: 1. Dextrocardia with right aortic arch; situs inversus. 2. Prior sternotomy. This document has been electronically signed by: Paddy Mayer MD on 04/02/2025 14:01:34
[2025-04-02 13:15] VITALS: BP 95/54; PULSE 85; RESP 18; TEMP 36.7; O2SAT 94; BMI 27.9
--- NOTE | 2025-04-02 13:16 | ED.GENADULT ---
HPI - General Adult General Chief complaint: Dizziness Stated complaint: lightheaded weak Related Data Home Medications ?Medication ?Instructions ?Recorded ?Confirmed warfarin 5 mg tablet 5 mg PO DAILY 05/29/20 08/13/22 Held on 05/30/20. Instructions: Resume on 06/02/20. Hold until INR <4 sacubitril 24 mg-valsartan 26 mg 1 tab PO BID 11/13/21 08/13/22 tablet (Entresto) metoprolol tartrate 50 mg tablet 50 mg PO .COMPLEX 08/13/22 08/13/22 Previous Rx's ?Medication ?Instructions ?Recorded meclizine 25 mg tablet 25 mg PO Q8H PRN dizziness #30 tabs 05/30/20 metoprolol succinate 200 mg 200 mg PO DAILY #30 tabs 05/30/20 tablet,extended release 24 hr lorazepam 0.5 mg tablet (Ativan) 0.5 mg PO BEDTIME PRN anxiety #10 08/10/22 tabs metoprolol succinate 200 mg 200 mg PO DAILY #90 tabs 10/18/24 tablet,extended release 24 hr meclizine 25 mg tablet 25 mg PO TID PRN dizziness #20 tabs 11/14/24 Allergies Allergy/AdvReac Type Severity Reaction Status Date / Time Penicillins Allergy Unknown RASH,NAUSEA Verified 04/02/25 13:17 ,VOMITING PMFSH Past Medical History Medical History Cardiomyopathy Dextrocardia Afib Aortic valve disease Surgical History History of open heart surgery Family History Family History Mother No problems noted. Father No problems noted. Social History Social History Household Members: Spouse Housing: Apartment Do you presently have visiting nurse or other home services: No Alcohol intake: never Patient Tobacco Use Status: Never used Tobacco Advance Directives: No Advance Directives Information Provided: No Do you have a plan to hurt others: No Plan service: No Current occupational status: disabled Physical Exam ED Vital Signs: Vital Signs - 24 hr 04/02/25 13:15 Temperature 98.1 F Pulse Rate 85 Respiratory Rate 18 Blood Pressure 95/54 L Pulse Oximetry 94 Oxygen Delivery Method Room Air BMI result Body Mass Index 27.9 Course Course Course Narrative: Rapid medical examination performed in triage by Marielos Wade PA-C. Patient is a 44 year old assigned female at presenting to the emergency department with weakness and feeling generally unwell. Patient states that he is on Coumadin and his heart is flipped on the right side of his chest. Detailed physical exam and review of systems are deferred to the manager concrete. EKG and labs ordered. Patient placed back in the waiting room pending room availability and results. Patient left the department without completing treatment. Patient left the department before myself or any of the other emergency department clinicians could explain to or review with the patient; physical exam findings, test results, need or lack there of for additional testing, need or lack there of for a procedure to be performed, need or lack there of for hospital admission / transfer, need or lack there of for prescription medication, treatment options, or a treatment plan. Patient's limited physical exam performed in triage showed a non-toxic individual with appropriate breathing, alert and oriented, and ambulating without assistance. Medical Decision Making Lab Data 04/02/25 13:37 04/02/25 13:37 Labs: Lab Results 04/02/25 Range/Units 13:37 WBC 5.7 (4.8-10.8) X10*3/uL RBC 4.53 L (4.60-5.80) X10*6/uL Hgb 12.3 L (14.0-18.0) g/dl Hct 36.9 L (42.0-52.0) % MCV 81.5 (80.0-98.0) fL MCH 27.2 (27.0-33.0) pg MCHC 33.3 (31.0-36.0) g/dl RDW 13.6 (11.0-16.0) % Plt Count 161 D (160-400) X10*3/uL MPV 10.2 (9.4-12.4) fL Immature Gran % (Auto) 0.2 (0.0-0.4) % Neut % (Auto) 59.2 (45-73) % Lymph % (Auto) 25.0 (20-40) % [place] % (Auto) 10.5 (2-11) % Eos % (Auto) 4.4 H (0-4) % Baso % (Auto) 0.7 (0-2) % Lymph # (Auto) 1.4 (1.2-4.9) X10*3/uL [place] # (Auto) 0.6 (0.1-1.2) X10*3/uL Eos # (Auto) 0.3 (0.0-0.4) X10*3/uL Baso # (Auto) 0.0 (0.0-0.2) X10*3/uL Abs Immat Gran (auto) 0.01 (0.00-0.03) X10*3/uL Absolute Neuts (auto) 3.4 (2.0-8.3) x10*3/uL Absolute Nucleated RBC 0.000 (0.0-0.012) X10*3/uL Nucleated RBC % (auto) 0.0 (0.0-0.2) /100WBC PT 27.6 H (10.9-12.4) SEC INR 2.4 H (0.9-1.1) Sodium 141 (135-145) mmol/L Potassium 3.7 (3.3-5.1) mmol/L Chloride 108 (96-108) mmol/L Carbon Dioxide 25 (22-29) mmol/L Anion Gap 12 (12-20) BUN 11 (9-16) mg/dL Creatinine 0.86 (0.5-1.4) mg/dL Estim Creat Clear Calc 116.3 Estimated GFR > 60 Random Glucose 107 (60-115) mg/dL Calcium 10.4 H D (8.4-10.2) mg/dL Magnesium 2.0 (1.6-2.6) mg/dL Total Bilirubin 0.7 (0.0-1.0) mg/dL AST 22 (5-37) U/L ALT 16 (0-40) U/L Alkaline Phosphatase 74 (39-117) U/L Troponin I High Sens < 2.7 D (<3.5-35.0) ng/L Total Protein 7.0 (6.5-8.0) g/dL Albumin 4.4 (3.5-5.0) g/dL COVID-19 (MIGUEL) Negative (Negative) COVID-19 Clin Com See Note Influenza Type A (MARISSA) Negative (Negative) Influenza Type B (MARISSA) Negative (Negative) Influenza A & B Note See Note Discharge Plan Discharge Clinical Impression: Light-headedness Patient Disposition: Left W/O Completing Treatment Prescriptions: No Action warfarin 5 mg Tablet 5 mg PO DAILY metoprolol succinate 200 mg tablet extended release 24 hr 200 mg PO DAILY Qty: 30 0RF Rx Instructions: replaces prior dose of 100 mg daily; discontinue diltiazem meclizine 25 mg Tablet 25 mg PO Q8H PRN (Reason: dizziness) Qty: 30 0RF Entresto 24-26 mg tablet 1 tab PO BID metoprolol tartrate 50 mg tablet 50 mg PO .COMPLEX Rx Instructions: 1 tablet AM, 2 tablets PM 50 mg orally; lorazepam [Ativan] 0.5 mg tablet 0.5 mg PO BEDTIME PRN (Reason: anxiety) Qty: 10 0RF metoprolol succinate 200 mg tablet extended release 24 hr 200 mg PO DAILY Qty: 90 0RF meclizine 25 mg tablet 25 mg PO TID PRN (Reason: dizziness) Qty: 20 0RF Discharge Date/Time: 04/02/25 14:50
--- NOTE | 2025-04-02 13:17 | ECG_ITS ---
Test Reason : WEAKNESS Blood Pressure : */* mmHG Vent. Rate : 59 BPM Atrial Rate : * BPM P-R Int : * ms QRS Dur : 122 ms QT Int : 448 ms P-R-T Axes : * 212 157 degrees QTcB Int : 443 ms Atrial fibrillation with slow ventricular response Right superior axis deviation Non-specific intra-ventricular conduction delay Nonspecific T wave abnormality Abnormal ECG When compared with ECG of 14-Nov-2024 20:29, Nonspecific T wave abnormality now evident in Inferior leads Referred By: Marielos Wade Electronically Signed By: ARGENIS BAZZI MD
[2025-04-02 13:42] LABS: MANUAL DIFF FLAG NO
[2025-04-02 13:43] LABS: Hematocrit 36.9 % (42.0-52.0); Hemoglobin 12.3 g/dl (14.0-18.0); Imm Gran Abs Auto 0.01 X10*3/uL (0.00-0.03); Imm Gran Pct Auto 0.2 % (0.0-0.4); Lymphocytes Absolute Auto 1.4 X10*3/uL (1.2-4.9); Mean Corpuscular HGB Conc 33.3 g/dl (31.0-36.0); Mean Corpuscular Hemoglobin 27.2 pg (27.0-33.0); Mean Corpuscular Volume 81.5 fL (80.0-98.0); NRBC Abs Auto 0.000 X10*3/uL (0.0-0.012); NRBC Pct Auto 0.0 /100WBC (0.0-0.2); Platelet Count 161 X10*3/uL (160-400); Red Blood Count 4.53 X10*6/uL (4.60-5.80); White Blood Count 5.7 X10*3/uL (4.8-10.8)
[2025-04-02 13:49] LABS: INTERNATIONAL NORM RATIO 2.4 (0.9-1.1); Prothrombin Time 27.6 SEC (10.9-12.4)
--- OUTSIDE RECORDS SUMMARY | 2025-04-02 13:53 | XMS_ITS | Clinical Summary ---
Author Organization [facility] Address [address] [place] [id number] Phone Care Team Providers Care Fuels Sales Representative Name Role Phone Unavailable Primary Care Provider Unavailabl e Social History Tobacco Use Types Packs/Day Years Used Date Smoking Tobacco: Never Assessed Education Answer Date Recorded Are you interested in more education? Not on rey e 11/14/2022 Are you concerned about learning? Not on file 11/14/2022 No 11/14/2022 No 11/14/2022 Digital Access Answer Date Recorded No 12/16/2022 No 12/16/2022 No 12/16/2022 Reliable internet access at home? Not on file 12/16/2022 Device with a working camera? Not on file Sex and Gender Information Value Date Recorded Sex Assigned at Not on file Legal Sex Male 7:21 PM EST Gender Identity Not on file Sexual Orientation Not on file Last Filed Vital Signs Vital Sign Reading Time Taken Comments Blood Pressure 98/48 11/15/2010 3:41 PM EDT Pulse - - Temperature - - Respiratory Rate - - Oxygen Saturation - - Inhaled Oxygen Concentration - - Weight 85.9 kg (189 lb 6.4 oz) 11/15/2010 3:41 P M EDT Height - - Body Mass Index - - Plan of Treatment Health Maintenance Due Date Last Done Comments Adult Td,Tdap Booster 1978 LIPID PANEL 1978 DEPRESSION SCREENING 1990 SMOKING Hx and SMOKELESS TOB ACCO SCREENING 1991 HEPATITIS C SCREENING 1996 HIV ONE-TIME SCREENING (18-6 5 YEARS) 1996 COLOGUARD 2023 COLONOSCOPY 2023 COLORECTAL CANCER SCREENING 2023 FIT TEST 2023 FOBT 2023 SIGMOIDOSCOPY 2023 VIRTUAL COLONOSCOPY 2023 COVID-19 VACCINE (2023-2 5 season) 2024 INFLUENZA VACCINE (#1) 2025 HEPATITIS A VACCINES Aged Out No long er eligible based on patient's age to complete this topic HIB VACCINES Aged Out No longer eligi ble based on patient's age to complete this topic MENINGOCOCCAL VACCINES (ACWY) Aged Out No longer eligible based on patient's age to complete this topic MENINGOCOCCAL VACCINES (B) Aged Out N o longer eligible based on patient's age to complete this topic PNEUMOCOCCAL VACCINES (0-49 years) Aged Out No longer eligible based on patient's age to complete this topic Medical Devices Not on file Insurance SANDY DRISCOLL [id number] CARE MEDICARE REPLACEMENT CARE MEDICARE REPLACEMENT CARE MEDICARE REPLACEMENT [facility] ONE CARE MEDICARE REPLACEMENT Additional Source Comments The information contained in this document represents components of the legal health record. It is not the complete legal health record.[facility]
--- OUTSIDE RECORDS SUMMARY | 2025-04-02 13:53 | XMS_ITS | Encounter Summary ---
Author Organization [facility] Address [address] [place] [phone] Phone Care Team Providers Care Barge Engineer Name Role Phone Unavailable Primary Care Provider Unavailabl e Reason for Visit * Reason Onset Date Comments Hernia Intake Form 01/31/2022 Encounter Details Date Type Department Care Team ([facility] st Contact Info) Description 01/31/2022 Telephone [facility] General & GI Surgery [address] [place] [address] Monae Tsang [address] [place] [address] [email or web address] [email or web address] Intake Form Social History Tobacco Use Types Packs/Day Years Used Date Smoking Tobacco: Never Assessed Sex and Gender Information Value Date Recorded Sex Assigned at Not on file Legal Sex Male 7:21 PM EST Gender Identity Not on file Sexual Orientation Not on file documented as of this encounter Plan of Treatment Not on file documented as of this encounter Visit Diagnoses Not on filedocumented in this encounter Additional Source Comments The information contained in this document represents components of the legal health record. It is not the complete legal health record.[facility]
--- OUTSIDE RECORDS SUMMARY | 2025-04-02 13:53 | XMS_ITS | Clinical Summary ---
Author Organization [facility] ity Address [address] [place] [address] Care Team Providers Care Poultry Veterinarian Name Role Phone Unavailable Primary Care Provider [...] 1997 COVID-19 Vaccine (2023-2 5 season) 2024 Depression Screening 07/21/2024 Influenza Vaccine (#1) 2025 HIB Vaccines Aged Out No longer eligi [...] 5 Years) and At-Risk Patients (6 to 49 Years) Aged Out No longer eligible b ased on patient's age to complete this topic RSV Immunization Patients Un regine 20 months Aged Out No longer eligible b ased on patient's age to complete this topic Varicella Vaccines Aged Out No longer eligible based on patient's age to complete this topic
[2025-04-02 13:59] LABS: Alanine Aminotransferase 16 U/L (0-40); Albumin Level 4.4 g/dL (3.5-5.0); Alkaline Phosphatase 74 U/L (39-117); Anion Gap 12 (12-20); Aspartate Amino Transferase 22 U/L (5-37); Blood Urea Nitrogen 11 mg/dL (9-16); Calcium 10.4 mg/dL (8.4-10.2); Carbon Dioxide 25 mmol/L (22-29); Chloride 108 mmol/L (96-108); Creatinine Clr Calc Pharmacy 116.3; Estimated Glomerular Filt Rate > 60; Magnesium 2.0 mg/dL (1.6-2.6); Potassium 3.7 mmol/L (3.3-5.1); Sodium 141 mmol/L (135-145); Total Protein 7.0 g/dL (6.5-8.0)
[2025-04-02 14:01] LABS: COVID-19 Test Negative (Negative); IDNOW Serial# 6674DD1D
[2025-04-02 14:02] LABS: IDNOW Serial# 08D9AD1C; Influenza B2 Negative (Negative)
[2025-04-02 14:14] LABS: Troponin-I High Sensitivity < 2.7 ng/L (<3.5-35.0)
== END 2025-04-02 14:50 | disposition left against medical advice (07) ==
PROVIDERS: Physician Assistant Medical; Emergency Provider Emergency Medicine; PCP Family Medicine
DX: R42 Dizziness and giddiness (principal); R53.1 Weakness; I48.91 Unspecified atrial fibrillation; Z79.01 Long term (current) use of anticoagulants; Z79.899 Other long term (current) drug therapy
CPT/HCPCS: 71046; 80053; 83735; 84484; 85025; 85610; 87502; 87635; 93005; 99283; 99284

== ENCOUNTER → 2025-04-02 13:17 | Outpatient (BNV) | payer OTHER, SELFPAY | PROVIDERS: PCP Family Medicine; Visit Provider Radiology Diagnostic Radiology | DX: Q89.3 Situs inversus (principal) | CPT/HCPCS: 71046 ==

== ENCOUNTER → 2025-04-02 13:17 | Outpatient (BNV) | payer OTHER, SELFPAY | PROVIDERS: Emergency Provider Emergency Medicine; PCP Family Medicine; Visit Provider Internal Medicine Cardiovascular Disease | DX: I48.91 Unspecified atrial fibrillation (principal); I45.9 Conduction disorder, unspecified | CPT/HCPCS: 93010 ==

== ENCOUNTER 2025-07-01 12:13 | Emergency (ER) | payer OTHER, SELFPAY ==
[2025-07-01 12:19] VITALS: BP 182/142; PULSE 82; O2SAT 98
[2025-07-01 12:37] VITALS: BP 113/67; PULSE 93; RESP 18; TEMP 36.2; O2SAT 97; BMI 22.2
--- NOTE | 2025-07-01 12:43 | ED_ITS ---
HPI - General Adult General Chief complaint: Dizziness Stated complaint: NAUSEA VOMITING Time Seen by Provider: 07/01/25 15:04 Source: patient and EMS Mode of arrival: EMS Limitations: no limitations History of Present Illness ED Provider: Marielos Wade PA-C HPI narrative: Patient is a 45 year old male with a history of persistent atrial fib for which is he on warfarin, cardiomyopathy, BPPV, and dextrocardia presenting to the emergency department today with dizziness. Patient states that he moved in bed quickly and began to have significant dizziness that has intermittently resolved but has not completely gone away. Patient denies any other complaints at this time. Related Data Home Medications ?Medication ?Instructions ?Recorded ?Confirmed warfarin 5 mg tablet 5 mg PO DAILY 05/29/2008/13 Held on 05/30/20. Instructions: Resume on 06/02/20. Hold until INR <4 sacubitril 24 mg-valsartan 26 mg 1 tab PO BID 11/13/21 08/13/22 tablet (Entresto) metoprolol tartrate 50 mg tablet 50 mg PO .COMPLEX 08/13/22 Previous Rx's ?Medication ?Instructions ?Recorded meclizine 25 mg tablet 25 mg PO Q8H PRN dizziness # 30 tabs 05/30/20 metoprolol succinate 200 mg 200 mg PO DAILY #30 tabs 1 07/30/19 tablet,extended release 24 hr lorazepam 0.5 mg tablet (Ativan) 0.5 mg PO BEDTIME PRN anxiety #10 08/10/22 tabs metoprolol succinate 200 mg 200 mg PO DAILY #90 tabs 0 10/18/24 tablet,extended release 24 hr meclizine 25 mg tablet 25 mg PO TID PRN dizziness # 20 tabs 11/14/24 Allergies Allergy/AdvReac Type Severity Reaction Status Date / Time Penicillins Allergy Unknown RASH,NAUSEA Verified 07/01/25 12:40 ,VOMITING Review of Systems 2 Constitutional: Constitutional: Reports as per HPI Eyes: Eyes: Reports as per HPI ENT: Reports as per HPI Cardiovascular: Cardiovascular: Reports as per HPI Respiratory: Respiratory: Reports as per HPI Gastrointestinal: Gastrointestinal: Reports as per HPI Genitourinary: Genitourinary: Reports as per HPI Musculoskeletal: Musculoskeletal: Reports as per HPI Integumentary/Breasts: Skin/Breast: Reports as per HPI Neurologic: Reports as per HPI Psychiatric: Psychiatric: Reports as per HPI Endocrine: Endocrine: Reports as per HPI Hematologic/Lymphatic: Hematologic/Lymphatic: Reports as per HPI Allergic/Immunologic: Allergic/Immunologic: Reports as per HPI [facility] Past Medical History Attestation statement: The following information was validated with the patient. Source: old records reviewed and nursing notes reviewed Medical History Cardiomyopathy Dextrocardia Afib Aortic valve disease Surgical History History of open heart surgery Family History Family History Mother No problems noted. Father No problems noted. Social History Social History Household Members: Spouse Housing: Apartment Do you presently have visiting nurse or other home services: No Alcohol intake: never Patient Tobacco Use Status: Never used Tobacco service: No Current occupational status: disabled Physical Exam ED Vital Signs: Vital Signs - 24 hr 07/01/25 12:37 Temperature 97.2 F Pulse Rate 93 Respiratory Rate 18 Blood Pressure 113/67 Pulse Oximetry 97 Oxygen Delivery Method Room Air BMI result Body Mass Index 22.2 Const General: cooperative, no acute distress, alert and awake Nutritional Appearance: well nourished Orientation/consciousness: patient oriented x3 HENMT Head: Yes normal to inspection and Yes atraumatic Ears: hearing grossly normal bilaterally and external ears normal General nose exam: Normal external nose present, no nasal discharge noted and no epistaxis Face and sinus: Yes normal facial exam, No abrasion and No laceration Mouth: Normal oral and palatal mucosa present, no drooling and no muffled voice Eyes General: appearance normal, both eyes and all related structures Periorbital: periorbital findings normal Eyelids: Yes eyelids normal Conjunctivae: conjunctivae normal Pupils: Equal, round and reactive pupils present EOM: EOMs intact bilaterally Neck Neck: Yes normal visual inspection and Yes full ROM Resp Effort & Inspection: normal respiratory effort and able to speak in complete sentences Neuro General: patient oriented x3, moves all extremities and CN's II-XI intact bilaterally Cranial nerves: Yes Equal, round and reactive pupils present Cognition (Neuro): normal cognition Extrem General: Yes normal to inspection, Yes full ROM and Yes capillary refill normal Psych Appearance: grossly normal Mental Status: mental status grossly normal Affect: normal affect Attitude: cooperative Thought process: Normal thought process present Thought content: Normal thought content present Insight: Good insight present (Psych) Course Course Course Narrative: Rapid medical examination performed in triage by Marielos Wade PA-C: Patient is a 45 year old assigned male at presenting to the emergency department with nausea and dizziness. Detailed physical exam and review of systems are deferred to the primary teaching assistant. EKG, labs, swabs ordered. Patient placed back in the waiting room pending room availability and results. Medical Decision Making Medical Decision Making MDM Narrative: Patient is a 45 year old male with a history of persistent atrial fib for which is he on warfarin, cardiomyopathy, BPPV, and dextrocardia presenting to the emergency department today with dizziness. Patient's physical exam was as noted in the physical exam portion of this note. Patient's blood work was unremarkable. Patient's EKG showed no obvious evidence of ischemia or infarct but did show a mildly rapid atrial fibrillation. Atrial fibrillation is chronic for the patient and while getting his EKG, he was anxious. His rate decreased back down below 100bpm after it was completed. I explained my physical exam findings as well as all test results to the patient. I answered all questions asked by the patient. I offered to obtain a CT of the head however, the patient stated that he now felt significantly better, the episode of dizziness was over - and he would like to be discharged. Given the patient's history of BPPV, reassuring work up and clinical presentation, I believe it's reasonable for the patient to discharge home. I stressed the importance of the patient taking his medication as directed (either prescribed or as the over the counter packaging recommends). I stressed the importance of the patient following up with his primary care provider. I stressed the importance of the patient returning to the emergency department immediately if his symptoms were to worsen or if he were to develop any dizziness, shortness of breath, difficulty breathing, chest pain, blurry vision, loss of vision, nausea, vomiting, abdominal pain, fever, chills, back pain, or any other complaints. Patient verbalized agreement and understanding with this treatment plan and discharge. Note: Patient left the department without his written discharge instructions. We did verbally discuss all the instructions. Differential Diagnosis Differential Diagnoses: The differential diagnosis associated with the presentation includes BPPV Dizziness Anxiety Admission/Observation Consideration of admission/observation: Escalation of care including admission/observation considered Patient would have been admitted to the hospital had his work up had any findings where hospital admission was appropriate and his clinical presentation warranted hospital admission. Lab Data [facility] Lab Attestation statement: I reviewed the patient's lab results. My interpretation of these results are in the [facility] Rationale portion of this note. 07/01/25 13:25 07/01/25 13:25 Labs: Lab Results 07/01/25 Range/Units 13:25 WBC 6.4 (4.8-10.8) X10*3/uL RBC 5.02 (4.60-5.80) X10*6/uL Hgb 13.6 L (14.0-18.0) g/dl Hct 41.6 L (42.0-52.0) % MCV 82.9 (80.0-98.0) fL MCH 27.1 (27.0-33.0) pg MCHC 32.7 (31.0-36.0) g/dl RDW 13.2 (11.0-16.0) % Plt Count 200 (160-400) X10*3/uL MPV 10.3 (9.4-12.4) fL Immature Gran % (Auto) 0.2 (0.0-0.4) % Neut % (Auto) 65.7 (45-73) % Lymph % (Auto) 24.4 (20-40) % [place] % (Auto) 7.5 (2-11) % Eos % (Auto) 1.7 (0-4) % Baso % (Auto) 0.5 (0-2) % Lymph # (Auto) 1.6 (1.2-4.9) X10*3/uL [place] # (Auto) 0.5 (0.1-1.2) X10*3/uL Eos # (Auto) 0.1 (0.0-0.4) X10*3/uL Baso # (Auto) 0.0 (0.0-0.2) X10*3/uL Abs Immat Gran (auto) 0.01 (0.00-0.03) X10*3/uL Absolute Neuts (auto) 4.2 (2.0-8.3) x10*3/uL Absolute Nucleated RBC 0.000 (0.0-0.012) X10*3/uL Nucleated RBC % (auto) 0.0 (0.0-0.2) /100WBC Hold Blue Top SEE NOTE Sodium 137 (135-145) mmol/L Potassium 3.9 (3.3-5.1) mmol/L Chloride 108 (96-108) mmol/L Carbon Dioxide 21 L (22-29) mmol/L Anion Gap 12 (12-20) BUN 11 (9-16) mg/dL Creatinine 0.75 (0.5-1.4) mg/dL Estim Creat Clear Calc 117.6 Estimated GFR > 60 Random Glucose 122 H (60-115) mg/dL Calcium 9.8 (8.4-10.2) mg/dL Magnesium 1.7 (1.6-2.6) mg/dL Total Bilirubin 0.5 (0.0-1.0) mg/dL AST 25 (5-37) U/L ALT 33 (0-40) U/L Alkaline Phosphatase 72 (39-117) U/L Troponin I High Sens < 2.7 (<3.5-35.0) ng/L Total Protein 7.3 (6.5-8.0) g/dL Albumin 4.6 (3.5-5.0) g/dL Influenza Type A (PCR) NEGATIVE (Negative) Influenza Type B (PCR) NEGATIVE (Negative) RSV RNA Qual (PCR) NEGATIVE (Negative) SARS-CoV-2 RNA (RT-PCR) NEGATIVE (Negative) Independent Interpretation I performed an independent interpretation of an: EKG Interpretation: I independently interpreted this EKG and am in agreement with the below findings: Vent. Rate: 104 BPM Atrial Rate: * BPM P-R Int: * ms QRS Dur: 96 ms QT Int: 348 ms P-R-T Axes: * 204 33 degrees QTcB Int: 457 ms Atrial fibrillation Referred By: Marielos Wade Electronically Signed By: MAIKOL BURDEN MD Dictated By: Maikol Burden MD Signed By: Electronically signed by Maikol Burden MD 07/01/25 0546 Discharge Plan Discharge Clinical Impression: Dizziness Patient Disposition: Home, Self-Care Instructions: Dizziness (ED) Additional Instructions: Your work up today was reassuring there is no EMERGENT cause for your symptoms. You have opted to be discharged before a CT scan of your head could be performed. IF you are prescribed home medications and/or you are taking over the counter medications at home - it is very important you continue to do so as prescribed / directed unless told otherwise by a healthcare provider. Follow up with your primary care provider. Do your best to stay well hydrated and rest. Return to the emergency department immediately if your symptoms worsen or if you develop any numbness, tingling, dizziness, shortness of breath, difficulty breathing, chest pain, blurry vision, loss of vision, nausea, vomiting, abdominal pain, fever, chills, back pain, or any other complaints. Please see the information below about our Patient Portal. If you are not yet enrolled in the [facility] Patient Portal, you will receive an enrollment email invitation following your visit to any [facility] care setting. You may also self-enroll in the Patient Portal by visiting our website: [email or web address] The following information is required to access the Patient Portal: - Your [facility] Medical Record Number - Your personal home email address (must match what is in your electronic medical record, Registration staff can assist with this) - Name - Date of Capabilities of the Patient Portal: - Message some providers - View upcoming appointments - Access your health summary, medical history, and visit history - View current conditions and allergies - View procedure and lab results - View your medications, including guidelines, side effects, and precautions - Complete pre-appointment questionnaires requested by your provider - Ready summary reports of your office visits and procedures To access the Patient Portal Mobile Dee, follow these directions: - Search [email or web address] in the Dee Store or [employer] Store - Download the Dee - Search for [facility] - Enter your login/password Prescriptions: No Action warfarin 5 mg Tablet 5 mg PO DAILY metoprolol succinate 200 mg tablet extended release 24 hr 200 mg PO DAILY Qty: 30 0RF Rx Instructions: replaces prior dose of 100 mg daily; discontinue diltiazem meclizine 25 mg Tablet 25 mg PO Q8H PRN (Reason: dizziness) Qty: 30 0RF Entresto 24-26 mg tablet 1 tab PO BID metoprolol tartrate 50 mg tablet 50 mg PO .COMPLEX Rx Instructions: 1 tablet AM, 2 tablets PM 50 mg orally; lorazepam [Ativan] 0.5 mg tablet 0.5 mg PO BEDTIME PRN (Reason: anxiety) Qty: 10 0RF metoprolol succinate 200 mg tablet extended release 24 hr 200 mg PO DAILY Qty: 90 0RF meclizine 25 mg tablet 25 mg PO TID PRN (Reason: dizziness) Qty: 20 0RF Print Language: Czech
--- NOTE | 2025-07-01 12:44 | ECG_ITS ---
Test Reason : dizziness Blood Pressure : */* mmHG Vent. Rate : 104 BPM Atrial Rate : * BPM P-R Int : * ms QRS Dur : 96 ms QT Int : 348 ms P-R-T Axes : * 204 33 degrees QTcB Int : 457 ms Atrial fibrillation with rapid ventricular response Right superior axis deviation ST & T wave abnormality, consider anterior ischemia Abnormal ECG When compared with ECG of 02-Apr-2025 14:07, Vent. rate has increased by 45 bpm QRS duration has decreased Nonspecific T wave abnormality, improved in Inferior leads T wave inversion now evident in Anterior leads Referred By: Marielos Wade Electronically Signed By: ARGENIS BAZZI MD
[2025-07-01 13:40] LABS: MANUAL DIFF FLAG NO
[2025-07-01 13:45] LABS: Hematocrit 41.6 % (42.0-52.0); Hemoglobin 13.6 g/dl (14.0-18.0); Imm Gran Abs Auto 0.01 X10*3/uL (0.00-0.03); Imm Gran Pct Auto 0.2 % (0.0-0.4); Lymphocytes Absolute Auto 1.6 X10*3/uL (1.2-4.9); Mean Corpuscular HGB Conc 32.7 g/dl (31.0-36.0); Mean Corpuscular Hemoglobin 27.1 pg (27.0-33.0); Mean Corpuscular Volume 82.9 fL (80.0-98.0); NRBC Abs Auto 0.000 X10*3/uL (0.0-0.012); NRBC Pct Auto 0.0 /100WBC (0.0-0.2); Platelet Count 200 X10*3/uL (160-400); Red Blood Count 5.02 X10*6/uL (4.60-5.80); White Blood Count 6.4 X10*3/uL (4.8-10.8)
[2025-07-01 14:08] LABS: Alanine Aminotransferase 33 U/L (0-40); Albumin Level 4.6 g/dL (3.5-5.0); Alkaline Phosphatase 72 U/L (39-117); Anion Gap 12 (12-20); Aspartate Amino Transferase 25 U/L (5-37); Blood Urea Nitrogen 11 mg/dL (9-16); Calcium 9.8 mg/dL (8.4-10.2); Carbon Dioxide 21 mmol/L (22-29); Chloride 108 mmol/L (96-108); Creatinine Clr Calc Pharmacy 117.6; Estimated Glomerular Filt Rate > 60; Magnesium 1.7 mg/dL (1.6-2.6); Potassium 3.9 mmol/L (3.3-5.1); Sodium 137 mmol/L (135-145); Total Protein 7.3 g/dL (6.5-8.0)
[2025-07-01 14:20] LABS: Troponin-I High Sensitivity < 2.7 ng/L (<3.5-35.0)
[2025-07-01 14:27] LABS: Resp Syncy Virus RNA Qual PCR NEGATIVE (Negative); SARS COV2 PCR INHOUSE NEGATIVE (Negative)
[2025-07-01 16:13] VITALS: BP 113/67; PULSE 93; RESP 18; TEMP 36.2; O2SAT 97
--- OUTSIDE RECORDS SUMMARY | 2025-07-01 20:12 | XMS_ITS | Clinical Summary ---
Author Organization [facility] Address [address] [place] [address] Phone Care Team Providers Care Nail Specialist Name Role Phone [facility] Primary Care Provider Tyree Crespo MD Unavailable [phone] [facility] Unavailable [facility] Unavail able Ishmael Felton MD Unavailable [phone] Mohamud Rodríguez MD Unavailable Allergies Active Allergy Reactions Criticality Noted Date Comments Penicillins Rash 12/31/2011 Reaction Type from PowerChart: Allergy; Medications cholecalciferol (Vitamin D-3) 25 MCG (1000 UT) capsule Special Instructions: TAKE 1 TABLET BY MOUTH EVERY DAY 3 Active melatonin 5 mg capsule Special Instructions: TAKE 1 TABLET BY MOUTH EVERY DAY AT BEDTIME NEEDED FOR INSOMNIA 3 Active metoprolol succinate XL (Toprol-XL) 200 mg 24 hr tablet Take 1 tablet by mouth 1 time each day. 4 Active metoprolol tartrate (Lopressor) 50 mg tablet Take 1 tablet by mouth 1 time each day. 4 Active warfarin (Coumadin) 5 mg tablet Special Instructions: TAKE 1 TABLET (5 MG) SUN- TUES, AND 1/2 TAB (2.5 MG) WED-SAT DOSE ADJUSTED PER INR 3 Active sacubitriL-valsar david (Entresto) 24-26 mg tablet Special Instructions: TAKE 1 TABLET BY MOUTH TWICE A DAY FOR 30 DAYS 3 Active meclizine 25 mg tablet,chewable Special Instructions: TAKE 1 TABLET BY MOUTH THREE TIMES A DAY NEEDED FOR DIZZINESS 3 Active dilTIAZem ER 180 mg 24 hr capsuleIndication s:ventricular rate control in atrial fibrillation Take 180 mg = 1 capsule by mouth 1 time each day. 90 capsule 2 5 07/12/20 25 Active Active Problems Patient Care Coordination No te Formatting of this note migh t be different from the original. 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 Tayo Morales at [facility]. Mitral valve repair was performed on August 19, [address] Michael Milner at [facility]. The procedure consisted of re-sternotomy with lysis of adhesions. Emergent institution of cardiopulmonary bypass was required due to injury of the venous atrium with left groin arterial cannulation and venous cannulation through the defect. 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 Social History Tobacco Use Types Packs/Day Years Used Date Smoking Tobacco: Never Assessed Sex and Gender Information Value Date Recorded Sex Assigned at Not on file Legal Sex Male 10:22 AM EDT Gender Identity Not on file Sexual Orientation Not on file Last Filed Vital Signs Vital Sign Reading Time Taken Comments Blood Pressure 123/77 12/31/2023 11:32 AM EDT ma p 92 Pulse 85 12/31/2023 11:32 AM EDT Temperature - - Respiratory Rate - - Oxygen Saturation 96% 12/31/2023 11:32 AM EDT Inhaled Oxygen Concentration - - Weight 87 kg (191 lb 12.8 oz) 12/31/2023 11:32 A M EDT Height 174.7 cm (5' 8.78 ) 12/31/2023 11:32 AM E DT Body Mass Index 28.51 12/31/2023 11:32 AM EDT Plan of Treatment Health Maintenance Due Date Last Done Comments Chlamydia and Gonorrhea Screening 1978 HIV Screening 1978 MMR Vaccines (1 of 1 - Standard series) 1979 Varicella Vaccines (1 of 2 - 13+ 2-dose series) 1991 Hepatitis C Screening 1996 Hepatitis B Vaccines (1 of 3 - 19+ 3-dose series) 1997 DTaP/Tdap/Td Vaccines (2 - Tdap) 08/12/2018 07/15/2018 Influenza Vaccine (#1) 2025 , 05/10/2020, 05/12/2018, Additional history exists Pneumococcal Vaccine: Pediatrics (0 to 5 Years) and At-Risk Patients (6 to 49 Years) Aged Out 05/25/2024, 12/13/2010 No longer eligibl e based on patient's age to complete this topic HIB Vaccines Aged Out No longer eligi ble based on patient's age to complete this topic HPV Vaccines (No Doses Required) Completed Hepatitis A Vaccines Aged Out No long er eligible based on patient's age to complete this topic IPV Vaccines Aged Out No longer eligi ble based on patient's age to complete this topic Meningococcal B Vaccine Aged Out No l onger eligible based on patient's age to complete this topic Meningococcal Vaccine Aged Out No mark fortino eligible based on patient's age to complete this topic Rotavirus Vaccines Aged Out No longer eligible based on patient's age to complete this topic [place] [address] [address] [address] [facility] Care Teams Nail Specialist Relationship Specialty Start Date End Date [facility] [address] [place] [address] PCP - General 12/09/23 [facility] [address] [place] [address] PCP - Insurance PCP 05/06/07 [facility] [address] [place] [address] PCP - Clinical PCP 01/31/22 Tyree Crespo MD [address] [place] [address] Associate Attending Cardiology 09/26/22 Ishmael Felton MD [address] [place] [id number] [facility] Outside Transportation Officer 12/20/23 Mohamud Rodríguez MD [address] [place] [address] HC Transportation Officer 12/20/23
--- OUTSIDE RECORDS SUMMARY | 2025-07-01 20:12 | XMS_ITS | Data Portability ---
Author Organization [employer] [facility], [facility] Address [address] [place] [address] Care Team Providers Care Asphalt Distributor Operator Name Role Phone HIM YOMAIRA OTHER Assessment Encounter Date Assessment Date Assessment LastModified by Organization Details LastModified Time 03/29/2025 03/29/2025 I provided real -time medical direction via phone for this encounter, and was available for additional phone based assistance as needed. I have reviewed and agree with the Assessment and Plan as documented by the Language Asst. We discussed the diagnostic uncertainty of home visits and the risk associated with this. In this case the patient and I felt this to be an acceptable and reasonable amount of risk given the benefit of avoiding an ED visit. The patient given the opportunity to ask questions. Advised if develops CP/severe SOB/turning blue/uncontrolle d n/v/d or black/bloody emesis or stool/ AMS/ syncope/ hi fever unresponsive to APAP to call 911- verbalized understanding of instruction [email or web address] Not available 03/29/2025 11:18:48 Plan of Treatment Reminders Order Date Submit Date Provider Last Modified By Organization Details Last Modified Time Details Appointments None record ed. Lab None record ed. Referral None record ed. Procedures None record ed. Surgeries None record ed. Imaging None record ed. Medication Orders None record ed. Patient TargetsNo targets recorded. Patient InstructionsNo instructions recorded. Reason for Referral None Reported. Medical Equipment None Reported. Allergies Allergen ID Allergen Name Allergen Category Reaction Reaction Severity Criticality Documentation Date Start Date Code Code System Note Provider Name and Address Organization Details Recorded Time 27506 Product containin g penicilli n (product) medicatio n Not available Not available Not available 03/29/2025 01489 8001 SNOMED Not Available [facility] - production 09:39:10 Medications Name Sig Start Date Stop Date Status Note LastModified by Organization Details LastModified Time amoxicillin 500 mg capsule TAKE 1 CAPSULE BY MOUTH THREE TIMES A DAY active Not Available Not Available Not Available doxycycline hyclate 100 mg capsule TAKE 1 CAPSULE BY MOUTH ONCE IN THE MORNING BEFORE YOUR DENTAL PROCEDURE active Not Available Not Available No t Available diltiazem ER 180 mg capsule,24 hr,extended release TAKE 1 CAPSULE BY MOUTH EVERY DAY active Not Available Not Available No t Available clindamycin HCl 300 mg capsule TAKE 4 CAPSULES BY MOUTH 1 HOUR BEFORE APPOINTMENT active Not Available Not Available Not Available trazodone 50 mg tablet TAKE 1/2 TABLET BY MOUTH DAILY AT BEDTIME active Not Available Not Available N ot Available metoprolol succinate ER 200 mg tablet,exten ded release 24 hr TAKE 1 TABLET BY MOUTH EVERY DAY active Not Available Not Available No t Available meclizine 25 mg tablet TAKE 1 TABLET BY MOUTH THREE TIMES A DAY NEEDED FOR DIZZINESS active Not Available Not Available No t Available warfarin 5 mg tablet TAKE 1 TABLET (5 MG) SUN- TUES, AND 1/2 TAB (2.5 MG) WED-FRI DOSE ADJUSTED PER INR active Not Available Not Available No t Available metoprolol tartrate 50 mg tablet TAKE 1 TABLET BY MOUTH AT NIGHT BEFORE BED. TAKES IN ADDITION TO 200 MG DOSE IN MORNING active Not Available Not Available N ot Available docusate sodium 100 mg capsule TAKE 1 CAPSULE BY MOUTH EVERY DAY WHILE ON NARCOTICS active Not Available Not Available No t Available hydroxyzine HCl 25 mg tablet TAKE 1 TABLET BY MOUTH DAILY AT BEDTIME TO HELP WITH SLEEP PLEASE DONT TAKE TOGETHER WITH MECLIZINE. active Not Available Not Available N ot Available oxycodone 5 mg tablet TAKE 1 TABLET BY MOUTH EVERY 6 HOURS NEEDED FOR SEVERE PAIN. (DO NOT DRIVE WHILE ON THIS MEDICATION) active Not Available Not Available Not Available escitalopram 10 mg tablet TAKE 1 TABLET BY MOUTH EVERYDAY AT BEDTIME active Not Available Not Available No t Available DILT-XR 180 mg capsule, extended release TAKE 1 CAPSULE BY MOUTH EVERY DAY active Not Available Not Available No t Available sodium fluoride 1.1 %-potassium nitrate 5 % dental paste USE PEA SIZE AMOUNT AND BRUSH WITH TOOTHBRUSH TWICE A DAY active Not Available Not Available Not Available cholecalcife rol (vitamin D3) 25 mcg (1,000 unit) tablet TAKE 1 TABLET BY MOUTH EVERY DAY active Not Available Not Available No t Available Entresto 24 mg-26 mg tablet TAKE 1 TABLET BY MOUTH TWICE A DAY active Not Available Not Available No t Available Vitals Date Recorded Heart rate Body temperature Respiratory rate Oxygen saturation Systolic And Diastolic Provider Name and Address Organization Details Last Updated DateTime 5 76 /min 98.4 [degF] 16 /min 98 % 120/76 mm[Hg] Not Available [facility] - production 5 10:58:16 Social History None recorded. Functional Status None recorded. Mental Status None recorded. Family History Nothing Reported. Medical History No medical history recorded. Past Encounters Encounter ID Performer Location Encounter Start Date Encounter Closed Date Diagnosis/Indication Diagnosis SNOMED-CT Code Diagnosis ICD10 Code Diagnosis IMO Codes Diagnosis Note [id number] No Gunter MD [facility] ED Medical [facility] [address] [place] [address] 03/29/2025 10:58:09 03/30/2025 13:19:35 Acute diarrhea [id number] R19.7 64414 clear liquids- stay hydrated/ BRAT dietOffere d patient COVID and flu although it might be too early to turn positive as he has no other symptoms/a nd lab work which the patient declined. Advised to call us back if he develops worsening symptoms wants another visit and red flags reviewed with the patient by the medic Health Concerns Section Related Observation LastModified by Organization Detai ls LastModified Time None Recorded Concern Status LastModified by Organization Details LastModified Time None Recorded Advance Directives Directive None Recorded Payers Insurance Date Sequence Insurance Name Policy Number Policy Delgado Covered Member ID Delgado Member ID Guarantor Name 03/29/2025 1 [facility] - DOS ON OR AFTER 2022 - DUAL ELIGIBLE - ASSISTED OPTIONS AND ONE CARE (MEDICARE REPLACEMENT/AD VANTAGE - HMO) Jonh Libia [id number] Jonh Libia Notes Date Note Type Note Provider Name and Address Organization Details Recorded Time 03/29/2025 text/html ROS as noted in the HPI CRC Nurse Triage Notes (Carlee Gamez): Reason For Request: Patient feels weak, tired.Denies: Increased work of breathing/labored with or without fever Unable to speak in full sentences without distress Discoloration of skin -cyanosis Needs to sleep sitting up, can t catch breath Shortness of breath in setting of confusion Cough, fever greater than 2 days Lower extremity swelling History of asthma, increased use of inhaler COPD COVID Exposure Sputum increase Cough Shortness of breath with exertion Pain with inspiration Chief Complaints: WeaknessPMH Reviewed at 03/29/2025:39Allergies Reviewed at 03/29/2025:39Comments: 44 y.o male complains of Weakness Self-reporting symptoms:Intense fatigue starting last night3 small episodes of diarrhea between last night and todayDenies: fever, coughing/sneezing, congestion, headache, nausea/vomitingEating and drinking adequately, voiding adequatelyNo recent medication changesNo known recent sick contactsRequesting instED visitI provided information on the mobile health provider response time and advised the patient and/or caregiver to monitor reported signs and symptoms. I discussed the warning signs of when to seek emergency care. ....................... ....................... ....................... ....................... ....................... ....................... ... Language Asst Note From Gerber Dos Santos: Dispatched to the call address for the male with weakness. Pt states he does not feel weak but rather just tired. He states that he was up late the last two nights and woke up a bit early, only sleeping approx 3-4 hours each night. He advises that he really just wanted to make sure he wasn't having low blood pressure or a fast heart rate. He endorses 3 soft stools yesterday but has been able to maintain PO hydration and denies stool being black or bloody. Pt denies chest pain, diff breathing/sob, cough, congestion, runny nose, headache, abd pain, fevers, vomiting or nausea. Pt was found opening door, (Pt witnessed climbing stairs with ease and at a quick pace), CAOx4, airway open and patent, breathing non labored, able to speak in full sentences, -JVD, -HEENT, skin PWD with good turgor, mucous membranes pink and moist, lungs CTA, abd soft non tender/distended, pupils PERRL, +CMSx4, -edema/swelling, afebrile. Pt was assessed. [facility] consulted. Red flags discussed. ALL times are approx. ....................... ....................... ....................... ....................... ....................... ....................... ... C Consulted: No Gunter ....................... ....................... ....................... ....................... ....................... ....................... ... Disposition: Fulfilled No Gunter MD [address] [facility],[address], [place], [address], VALENTIN HERNANDEZ 03/29/2025 23:36:02
--- OUTSIDE RECORDS SUMMARY | 2025-07-01 20:12 | XMS_ITS | Encounter Summary ---
Author Organization [facility] Address [address] [place] [address] Phone Care Team Providers Care Forest Fire Warden Name Role Phone Unavailable Primary Care Provider Unavailabl e Reason for Visit * Reason Onset Date Comments Hernia Intake Form 01/31/2022 Encounter Details Date Type Department Care Team (Late st Contact Info) Description 01/31/2022 Telephone [facility] General & GI Surgery [address] [place], [place] [id number] [place] [address] [email or web address] [email or web address] Hernia Intake Form Social History Tobacco Use [...] It is not the complete legal health record.[facility]
--- OUTSIDE RECORDS SUMMARY | 2025-07-01 20:12 | XMS_ITS | Clinical Summary ---
Author Organization [facility] Address [address] [place] [phone] Phone Care Team Providers Care Interactive Media Designer Name Role Phone Unavailable Primary Care Provider [...] FOBT 2023 SIGMOIDOSCOPY 2023 VIRTUAL COLONOSCOPY 2023 INFLUENZA VACCINE (#1) 2025 COVID-19 VACCINE (1 - 2024-2 6 season) 2025 HEPATITIS A VACCINES Aged Out No [...] Devices Not on file Insurance SANDY DRISCOLL [id number] CARE MEDICARE REPLACEMENT CARE MEDICARE REPLACEMENT CARE MEDICARE REPLACEMENT [facility] ONE CARE MEDICARE REPLACEMENT Additional Source Comments The information contained in this document represents components of the legal health record. It is not the complete legal health record.[facility]
--- OUTSIDE RECORDS SUMMARY | 2025-07-01 20:12 | XMS_ITS | Clinical Summary ---
Author Organization [facility] Address [address] [place] [address] Care Team Providers Care Rug Cutter Helper Name Role Phone Unavailable Primary Care Provider [...] of 3 - 19+ 3-dose series) 1997 Depression Screening 07/21/2024 COVID-19 Vaccine (1 - 2024-2 6 season) 2025 Influenza Vaccine (#1) 2025 RSV Immunization Adult Patie nts (1 - 1-dose 75+ series) 2053 HIB Vaccines Aged Out No longer eligi [...]
== END 2025-07-01 16:14 | disposition home or self-care (01) ==
PROVIDERS: Physician Assistant Medical; Emergency Provider Emergency Medicine
DX: R42 Dizziness and giddiness (principal); I48.91 Unspecified atrial fibrillation; Z03.818 Encounter for observation for suspected exposure to other biological agents ruled out; Z79.01 Long term (current) use of anticoagulants
CPT/HCPCS: 36415; 80053; 83735; 84484; 85025; 87637; 93005; 99283

== ENCOUNTER → 2025-07-01 12:44 | Outpatient (BNV) | payer OTHER, SELFPAY | PROVIDERS: Visit Provider Internal Medicine Cardiovascular Disease | DX: I48.91 Unspecified atrial fibrillation (principal) | CPT/HCPCS: 93010 ==

== ENCOUNTER 2025-07-19 22:02 | Emergency (ER) | payer OTHER, SELFPAY ==
--- OUTSIDE RECORDS SUMMARY | 2025-07-17 23:59 | XMS_ITS | Continuity of Care Document ---
Author Organization [facility] Address [address] [place] [id number]- Care Team Providers Care Washer Engineer Helper Name Role Phone Juan Rendon DO Primary Care Physician Encounter [facility] Date(s): 06/17/25 - 07/17/25 [facility] [address] [place] [phone] Encounter Type: Triage Allergies, Adverse Reactions, Alerts Substance Criticality Severity Reaction Reaction Severity Status penicillin rash Active Immunizations Given and Recorded Vaccine Date Status Refusal Reason pneumococcal 20-valent conjugate vaccine 05/25/24 Given influenza virus vaccine, inactivated 05/25/24 Give n influenza virus vaccine, inactivated 05/10/20 Give n influenza virus vaccine, inactivated 05/12/18 Give n influenza virus vaccine, inactivated 05/06/16 Give n influenza virus vaccine, inactivated 07/06/15 Give n influenza virus vaccine, inactivated 05/26/14 Give n influenza virus vaccine, inactivated 03/29/13 Give n influenza virus vaccine, inactivated 1 03/26/12 Gi primo influenza virus vaccine, inactivated 2 04/02/11 Gi primo influenza virus vaccine, inactivated 09/29/06 Give n tetanus-diphtheria toxoids (Td) 07/15/18 Given pneumococcal 23-valent vaccine 3 12/13/10 Given Tet/Diphth/Acel, Pertussis (oldterm) 4 02/01/08 Gi primo 1Admin Note: flulaval vis given vis date 01/20/2012 2Admin Note: vis given vis date 02/12/2011 3Admin Note: vis given vis date 10/27 4Admin Note: VIS given Medications DilTIAZem (Eqv-Dilacor XR) 180 mg/24 hours oral capsule, extended release 1 capsule = 180 mg, By Mouth, Daily, # 90 capsule, 3 Refills, Maintenance, 01/17/25 6:16:00 PM EDT, CD Capsule, [facility]/pharmacy #[id number], Partial fill upon patient request if the prescription is for a schedule II opioid drug., 175, cm, 12/03/24 14:59:00 EDT, Height, 86.6, kg, 05/12/24 13:31:00 EDT, Dry Weight Start Date: 01/17/25 Status: Ordered Medication Dispense Status: Completed Quantity: 90.0 Unit: capsule Total Allowed Fills: 4 Fills Dispensed: 0 docusate sodium 100 mg oral tablet 1 tablet = 100 mg, By Mouth, Daily, While on narcotics, # 14 tablet, 0 Refills, Maintenance, 05/14/24 9:37:00 AM EDT, Tablet, [facility], Partial fill upon patient request if the prescription is for a schedule II opioid drug., 175, cm, 05/13/24 13:58:00 EDT, Height, 86.6, kg, 05/12/2413:31:00 EDT, Dry Weight Start Date: 05/14/24 Stop Date: 05/28/24 Status: Ordered Medication Dispense Status: Completed Quantity: 14.0 Unit: tablet Total Allowed Fills: 1 Fills Dispensed: 0 doxycycline hyclate 100 mg oral capsule 1 capsule, By Mouth, Daily in AM, BEFORE DENTAL PROCEDURE (VIAL., # 1 capsule, 0 Refills, Maintenance, 07/06/25 12:25:00 PM EST, [facility], 175, cm, 04/11/25 14:41:00 EDT, Height, 86.6, kg, 05/12/24 13:31:00 EDT, Dry Weight Start Date: 07/06/25 Status: Ordered Medication Dispense Status: Completed Quantity: 1.0 Unit: capsule Total Allowed Fills: 1 Fills Dispensed: 0 Entresto 24 mg-26 mg oral tablet 1 tablet, By Mouth, 2 times a day, # 180 tablet, 3 Refills, Maintenance, 11/23/24 11:52:00 AM EDT, [facility]/pharmacy #[id number], 90, 1 tablet By Mouth 2 times a day,x30 days, 175, cm, 05/25/24 10:46:00 EST, Height, 86.6, kg, 05/12/24 13:31:00 EDT, Dry Weight Start Date: 11/23/24 Stop Date: 03/23/25 Status: Ordered Medication Dispense Status: Completed Quantity: 180.0 Unit: tablet Total Allowed Fills: 4 Fills Dispensed: 0 escitalopram 10 mg oral tablet 1 tablet, By Mouth, Daily at bedtime, # 30 tablet, 5 Refills, Maintenance, 02/22/25 9:50:00 AM EDT, [facility]/pharmacy #1, 175, cm, 02/22/25 9:26:00 EDT, Height, 86.6, kg, 05/12/24 13:31:00 EDT, Dry Weight Start Date: 02/22/25 Status: Ordered Medication Dispense Status: Completed Quantity: 30.0 Unit: tablet Total Allowed Fills: 6 Fills Dispensed: 0 hydrOXYzine hydrochloride 25 mg oral tablet 1 tablet, By Mouth, Daily at bedtime, TO HELP WITH SLEEP. DONT TAKE TOGETHER WITH MECLIZINE ^1R4, #30 tablet, 0 Refills, Maintenance, 06/20/25 10:10:00 AM EST, [facility], 175, cm, 04/11/25 14:41:00 EDT, Height, 86.6, kg, 05/12/24 13:31:00 EDT, Dry Weight Start Date: 06/20/25 Status: Ordered Medication Dispense Status: Completed Quantity: 30.0 Unit: tablet Total Allowed Fills: 1 Fills Dispensed: 0 meclizine 25 mg oral tablet 1 tablet, By Mouth, 3 times a day, PRN NEEDED FOR DIZZINESS, # 90 tablet, 1 Refills, Maintenance, 04/26/25 1:50:00 PM EDT, [id number], 175, cm, 04/11/25 14:41:00 EDT, Height, 86.6, kg, 05/12/24 13:31:00 EDT, Dry Weight Start Date: 04/26/25 Status: Ordered Medication Dispense Status: Completed Quantity: 90.0 Unit: tablet Total Allowed Fills: 1 Fills Dispensed: 0 Melatonin 5 mg oral tablet 1 tablet = 5 mg, By Mouth, Daily at bedtime, PRN NEEDED FOR INSOMNIA, # 1 tablet, 3 Refills, Maintenance, 06/25/25 12:34:00 PM EST, [facility]/pharmacy #[id number], 175, cm, 04/11/25 14:41:00 EDT, Height, 86.6,kg, 05/12/24 13:31:00 EDT, Dry Weight Start Date: 06/25/25 Stop Date: 10/23/25 Status: Ordered Medication Dispense Status: Completed Quantity: 1.0 Unit: tablet Total Allowed Fills: 4 Fills Dispensed: 0 metoprolol 50 mg oral tablet See Instructions, 1 tablet By Mouth at night before bed. Takes in addition to 200 mg dose in morning to make 250 daily total daily dose., # 90 each, Refills 3, Tot. Refills 3, Maintenance, 06/20/25 10:08:00 AM EST, Instructions Replace Required Details, Route to Pharmacy Electronically, [facility]/pharmacy#[id number], Partial fill upon patient request if the prescription is for a schedule II opioid drug., 175, cm, 04/11/25 14:41:00 EDT, Height, 86.6, kg, 05/12/24 13:31:00 EDT, Dry Weight Start Date: 06/20/25 Status: Ordered Medication Dispense Status: Completed Quantity: 90.0 Unit: each Total Allowed Fills: 4 Fills Dispensed: 0 Metoprolol Succinate ER 200 mg oral tablet, extended release 1 tablet, By Mouth, Daily, # 90 tablet, 3 Refills, Maintenance, 06/20/25 10:09:00 AM EST, [facility]/pharmacy #[id number], 175, cm, 04/11/25 14:41:00 EDT, Height, 86.6, kg, 05/12/24 13:31:00 EDT, Dry Weight Start Date: 06/20/25 Status: Ordered Medication Dispense Status: Completed Quantity: 90.0 Unit: tablet Total Allowed Fills: 4 Fills Dispensed: 0 traZODone 50 mg oral tablet 0.5, tablet, By Mouth, Daily at bedtime, # 45 tablet, Refills 1, Tot. Refills 1, Maintenance, 10/13/24 12:40:00 PM EDT, Route to Pharmacy Electronically, [facility]/pharmacy #[id number], 175, cm, 05/25/24 10:46:00EST, Height, 86.6, kg, 05/12/24 13:31:00 EDT, Dry Weight Start Date: 10/13/24 Status: Ordered Medication Dispense Status: Completed Quantity: 45.0 Unit: tablet Total Allowed Fills: 2 Fills Dispensed: 0 Vitamin D3 1000 intl units oral tablet 1 tablet = 25 mcg, By Mouth, Daily, # 90 tablet, 3 Refills, Maintenance, 01/15/24 3:29:00 PM EDT, Tablet, [facility]/pharmacy #207, Partial fill upon patient request if the prescription is for a schedule IIopioid drug., 175, cm, 01/15/24 15:14:00 EDT, Height, 87, kg, 11/18/22 10:05:00 EDT, Dry Weight Start Date: 01/15/24 Status: Ordered Medication Dispense Status: Completed Quantity: 90.0 Unit: tablet Total Allowed Fills: 4 Fills Dispensed: 0 warfarin 5 mg oral tablet See Instructions, TAKE 1 TABLET (5 MG) SUN- TUES, AND 1/2 TAB (2.5 MG) WED-SAT DOSE ADJUSTED PER INR, # 84 tablet, 19 Refills, Maintenance, 06/20/25 10:09:00 AM EST, [facility]/pharmacy #207, 175, cm, 04/11/25 14:41:00 EDT, Height, 86.6, kg, 05/12/24 13:31:00 EDT, Dry Weight Start Date: 06/20/25 Status: Ordered Medication Dispense Status: Completed Quantity: 84.0 Unit: tablet Total Allowed Fills: 20 Fills Dispensed: 0 Problem List Condition Confirmation Course Effective Dates Status H ealth Status Informant AF - Atrial fibrillation Confirmed Active Anemia Confirmed Active 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 Cardiomyopathy Confirmed Active Congenital heart disease Confirmed Active Depression Confirmed 11/24/09 Active Dextrocardia Confirmed Active Diastasis recti Confirmed Active Ventral hernia Confirmed Active *Anamika/YOMAIRA/[facility]-[phone] [email or web address], active care coordination Confirmed Active Encounter for screening colonoscopy Confirmed Active Social History Social History Type Response Smoking Status Never (less than 100 in lifetime) entered on: 05/03/24 Sex Male Sex Representation Male (finding) Implantable Device List Procedure Provider Procedure Date Device Type Site Repair Hernia Incisional Open Pasquale Bolivar MD 05/12/24 Unknown Abdomen Device Identifier Serial Number Lot or Batch Number Manufacturing Date Expiration Date Distinct Identification Code MRI Safety Implantable Status Assigning Authority Unknown Unknown [id number] Unknown 05/17/25 Unknown Unknown Active Unknown Patient Care team information Care Team Personnel Name: Juan Rendon DO Position: [facility] Resident Member Role: PCP Address: [address] [place] [address] Telecom: Name: Komal Reed RN Position: [facility] RN Member Role: Primary Care Nurse Care Team Related Persons Name: SARAH ADAMS Name: LILLIE PAZ Name: BEV PAZ Name: JACKSON EBONI Name: HERACLIO HI Name: TOMA KRISHNAMURTHY Name: TRAV GARCIA Insurance Providers Guarantor name: JON PAZ Health Plan Information #: 1 Payer: [facility] ONE CARE Payer Identifier: NA Member Number: [id number] Group Number: [id number] Subscriber Identifier: NA Relationship to Subscriber: self Coverage Type: Medicare Managed Care (Includes Medicare Advantage Plans) Coverage Verification Date: NA Telecom: NA Address:
--- OUTSIDE RECORDS SUMMARY | 2025-07-17 23:59 | XMS_ITS | Continuity of Care Document ---
Author Organization [facility] Address [address] [place] [id number]- Care Team Providers Care National Park Ranger Name Role Phone Juan Rendon DO Primary Care Physician Encounter [facility] Date(s): 06/17/25 - 07/17/25 [facility] [address] [place] [phone] Encounter Type: Triage Allergies, Adverse Reactions, Alerts [...] Maintenance, 01/17/25 6:16:00 PM EDT, CD Capsule, [facility]/pharmacy #[id number], Partial fill upon patient request if [...] Refills, Maintenance, 05/14/24 9:37:00 AM EDT, Tablet, [facility], Partial fill upon patient request [...] 0 Refills, Maintenance, 07/06/25 12:25:00 PM EST, [facility], 175, cm, 04/11/25 14:41:00 EDT, Height, 86.6, kg, 05/12/24 13:31:00 EDT, Dry Weight Start Date: 07/06/25 Status: Ordered Medication Dispense Status: Completed Quantity: 1.0 Unit: capsule Total Allowed Fills: 1 Fills Dispensed: 0 Entresto 24 mg-26 mg oral tablet 1 tablet, By Mouth, 2 times a day, # 180 tablet, 3 Refills, Maintenance, 11/23/24 11:52:00 AM EDT, [facility]/pharmacy #[id number], 90, 1 tablet By Mouth 2 [...] 5 Refills, Maintenance, 02/22/25 9:50:00 AM EDT, [facility]/pharmacy #1, 175, cm, 02/22/25 9:26:00 EDT, Height, [...] 0 Refills, Maintenance, 06/20/25 10:10:00 AM EST, [facility], 175, cm, 04/11/25 14:41:00 EDT, Height, 86.6, kg, 05/12/24 13:31:00 EDT, Dry Weight Start Date: 06/20/25 Status: Ordered Medication Dispense Status: Completed Quantity: 30.0 Unit: tablet Total Allowed Fills: 1 Fills Dispensed: 0 meclizine 25 mg oral tablet 1 tablet, By Mouth, 3 times a day, PRN NEEDED FOR DIZZINESS, # 90 tablet, 1 Refills, Maintenance, 04/26/25 1:50:00 PM EDT, [facility] STORE [id number], 175, cm, 04/11/25 14:41:00 EDT, Height, 86.6, kg, 05/12/24 13:31:00 EDT, Dry Weight Start Date: 04/26/25 Status: Ordered Medication Dispense Status: Completed Quantity: 90.0 Unit: tablet Total Allowed Fills: 1 Fills Dispensed: 0 Melatonin 5 mg oral tablet 1 tablet = 5 mg, By Mouth, Daily at bedtime, PRN NEEDED FOR INSOMNIA, # 1 tablet, 3 Refills, Maintenance, 06/25/25 12:34:00 PM EST, [facility]/pharmacy #[id number], 175, cm, 04/11/25 14:41:00 EDT, Height, [...] Replace Required Details, Route to Pharmacy Electronically, [facility]/pharmacy#[id number], Partial fill upon patient request if the [...] 3 Refills, Maintenance, 06/20/25 10:09:00 AM EST, [facility]/pharmacy #[id number], 175, cm, 04/11/25 14:41:00 EDT, Height, 86.6, kg, 05/12/24 13:31:00 EDT, Dry Weight Start Date: 06/20/25 Status: Ordered Medication Dispense Status: Completed Quantity: 90.0 Unit: tablet Total Allowed Fills: 4 Fills Dispensed: 0 traZODone 50 mg oral tablet 0.5, tablet, By Mouth, Daily at bedtime, # 45 tablet, Refills 1, Tot. Refills 1, Maintenance, 10/13/24 12:40:00 PM EDT, Route to Pharmacy Electronically, [facility]/pharmacy #[id number], 175, cm, 05/25/24 10:46:00EST, Height, 86.6, kg, 05/12/24 13:31:00 EDT, Dry Weight Start Date: 10/13/24 Status: Ordered Medication Dispense Status: Completed Quantity: 45.0 Unit: tablet Total Allowed Fills: 2 Fills Dispensed: 0 Vitamin D3 1000 intl units oral tablet 1 tablet = 25 mcg, By Mouth, Daily, # 90 tablet, 3 Refills, Maintenance, 01/15/24 3:29:00 PM EDT, Tablet, [facility]/pharmacy #207, Partial fill upon patient request if [...] 19 Refills, Maintenance, 06/20/25 10:09:00 AM EST, [facility]/pharmacy #207, 175, cm, 04/11/25 14:41:00 EDT, Height, [...] Confirmed Active Ventral hernia Confirmed Active *Anamika/YOMAIRA/[facility]-[phone] [email or web address]@[email or web address]/Health retirement, active care coordination Confirmed Active Encounter for [...] Safety Implantable Status Assigning Authority Unknown Unknown [id number] Unknown 05/17/25 Unknown Unknown Active Unknown Patient Care team information Care Team Personnel Name: Juan Rendon DO Position: [facility] Resident Member Role: PCP Address: [address] [place] [address] Telecom: Name: Komal Reed RN Position: [facility] RN Member Role: Primary Care Nurse Care Team Related Persons Name: SARAH ADAMS Name: LILLIE PAZ Name: BEV PAZ Name: JACKSON EBONI Name: HERACLIO HI Name: TOMA KRISHNAMURTHY Name: TRAV GARCIA Insurance Providers Guarantor name: JON PAZ Health Plan Information #: 1 Payer: [employer] ONE CARE Payer Identifier: NA Member Number: [id number] Group Number: [id number] Subscriber Identifier: NA Relationship to Subscriber: self Coverage Type: Medicare Managed Care (Includes Medicare Advantage Plans) Coverage Verification Date: NA Telecom: NA Address:
--- NOTE | 2025-07-19 | ECG_ITS ---
Test Reason : CHEST PAIN Blood Pressure : */* mmHG Vent. Rate : 78 BPM Atrial Rate : * BPM P-R Int : * ms QRS Dur : 110 ms QT Int : 340 ms P-R-T Axes : * 213 249 degrees QTcB Int : 387 ms Atrial fibrillation Right superior axis deviation Nonspecific ST and T wave abnormality Abnormal ECG When compared with ECG of 01-Jul-2025 13:17, No significant changes seen Referred By: Generic ED Physician Electronically Signed By: NIKOLAY HOANG
[2025-07-19 22:30] VITALS: BP 106/60; PULSE 97; RESP 16; TEMP 36.7; O2SAT 95; BMI 28.4
--- OUTSIDE RECORDS SUMMARY | 2025-07-19 22:38 | XMS_ITS | Clinical Summary ---
Author Organization [facility] Address [address] [place] [address] Phone Care Team Providers Care Ssn/Ssbn Assistant Navigator Name Role Phone [facility] Primary Care Provider Tyree Crespo MD Unavailable [phone] [facility] Unavailable [facility] Unavail able Ishmael Felton MD Unavailable [phone] Mohamud Rodríguez MD Unavailable [phone] Allergies Active Allergy Reactions Criticality Noted Date [...] time each day. 90 capsule 2 5 Active Active Problems Patient Care Coordination No [...] by Dr. Tayo Morales at [facility]. Mitral valve repair was performed on August 19, [address] Michael Milner at [facility]. The procedure consisted of re-sternotomy with [...] DTaP/Tdap/Td Vaccines (2 - Tdap) 08/12/2018 07/15/2018 COVID-19 Vaccine (1 - season) 2025 Influenza Vaccine (#1) 2025 , 05/10/2020, 05/12/2018, [...] patient's age to complete this topic [place] [address] [address] [facility] Care Teams Ssn/Ssbn Assistant Navigator Relationship Specialty Start Date End Date [facility] [address] [place] [address] PCP - General 12/09/23 [facility] [address] [place] [address] PCP - Insurance PCP 05/06/07 [facility] [address] [place] [address] PCP - Clinical PCP 01/31/22 Tyree Crespo MD [address] [place] [address] Associate Attending Cardiology 09/26/22 Ishmael Felton MD [address] [place] [address] HC Outside Contingents Supervisor 12/20/23 Mohamud Rodríguze MD [address] [place] [address] HC Contingents Supervisor 12/20/23
--- OUTSIDE RECORDS SUMMARY | 2025-07-19 22:38 | XMS_ITS | Clinical Summary ---
Author Organization [facility] Address [address] [place] [address] Care Team Providers Care Gas Leak Inspector Helper Name Role Phone Unavailable Primary Care [...]
--- OUTSIDE RECORDS SUMMARY | 2025-07-19 22:38 | XMS_ITS | Continuity of Care Document ---
Author Organization [facility] Address [address] [place] [phone] Care Team Providers Care Chute Greaser Name Role Phone HIM [facility] Primary Care Provider Assessment Encounter Date Assessment Date Assessment LastModified by Organization Details LastModified Time 07/12/2025 07/12/2025 I have reviewed and agree with the assessment and plan as documented by the supervising editor news reel. I provided real-time medical direction for this encounter and was immediately available to provide additional phone-based assistance as needed. History as noted in EMR and by supervising editor news reel. 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 Took meclizine with some relief. No new or unusual sxs and pt reports feels like prior vertigo flares. Adherent w/ warfarin per report. No focal neuro deficits appreciated by medic. SUspect peripheral vertigo. ECG demonstrates known AF. Patient would benefit from referral to vestibular physical therapy which he has benefitted from in the past. pallfather Not available 07/13/2025 20:34:58 Plan of Treatment Reminders Order Date Submit Date Provider Last Modified By Organization Details Last Modified Time Details Appointments Urgent Care 2024 05:10P M Not available Not available Not available Lab None recorded . Referral None recorded . Procedures None recorded . Surgeries None recorded . Imaging electroc ardiogra m 2024 025 pallther [facility], [address] [place] [address], [phone] 07/12/2025 15:12:09 Medication Orders None recorded . Patient TargetsNo targets recorded. Patient InstructionsNo instructions recorded. Reason for Referral None Reported. Results Created Date Observation Date Name Description Value Unit Range Abnormal Flag Note LastModifiedBy Organization Detail LastModifiedTime 07/12/20 25 07/12/2025 elect rocar diogr am No observ ation record ed. [email or web address] [facility] [address], [phone] 07/12/2025 18:06:16 07/19/20 elect rocar diogr am No observ ation record ed[email or web address] [address], [address] 07/19/2025 21:07:44 Result Notes None recorded. Medical Equipment None Reported. Allergies Allergen ID Allergen Name Allergen Category Reaction Reaction Severity Criticality Documentation Date Start Date Code Code System Note Provider Name and Address Organization Details Recorded Time 20901 Product containin g penicilli n (product) medicatio n Not available Not available Not available 03/29/2025 60506 8001 SNOMED Not Available [facility] - production [...] (2.5 MG) WED-SAT DOSE ADJUSTED PER INR active Not Available [...] Available No t Available Vitals Date Recorded Body temperature Oxygen saturation Respiratory rate Heart rate Body weight Body height Heart rate Systolic And Diastolic Systolic And Diastolic Provider Name and Address Organization Details Last Updated DateTime 5 98.3 [degF] 97 % 18 /min 76 /min 03996.5 6 g 175.26 cm 86 /min 109/68 mm[Hg] 112/72 mm[Hg] Not Available [facility] - production 5 11:38:20 Social History None recorded. Functional Status None recorded. Mental Status None recorded. Family History Nothing Reported. Medical History No medical history recorded. Past Encounters Encounter ID Performer Location Encounter Start Date Encounter Closed Date Diagnosis/Indication Diagnosis SNOMED-CT Code Diagnosis ICD10 Code Diagnosis IMO Codes Diagnosis Note [id number] Renetta Fernandez MD [facility] [address] [phone] 07/04/2025 17:24:46 07/04/2025 22:15:50 Vertigo [id number] R42 [id number] Hunter Aguirre MD [address] [address] 07/12/2025 11:24:59 07/14/2025 11:57:41 Vertigo 772415399 R42 17504 Health Concerns Section Related Observation LastModified by Organization Detai ls LastModified Time None Recorded Concern Status LastModified by Organization Details LastModified Time None Recorded Payers Encounter Date Sequence Insurance Name Policy Number Policy Delgado Covered Member ID Delgado Member ID Guarantor Name 07/12/2025 1 [facility] - DOS ON OR AFTER 2022 - DUAL ELIGIBLE - [employer] OPTIONS AND ONE CARE (MEDICARE REPLACEMENT/AD VANTAGE - HMO) Jonh Libia [id number] Jonh Libia Notes Date Note Type Note Provider Name and Address Organization Details Recorded Time 07/12/2025 text/html [facility] Nurse Triage Notes (Jasmin Lucero): Reason For Request: light headed Patient Reports: Palpitations, feeling dizzy Denies: History of Heart Attack, in the setting of active chest pain Active Chest pain, radiates to neck jaw and or arm Diaphoretic/Sweati ng Describes as c rushing Sudden onset of nausea/Vomiting and shortness of breath. Shortness of Breath Unable to speak in full sentences without distress Chest pain, increased fatigue CHF history, increased swelling and edema Weakness/tachycard ia Chief Complaints: Weakness, Dizziness PMH: Hypertension, Arrhythmias (e.g., Atrial Fibrillation) PMH Reviewed at 07/12/2025 - 10:24 (ET) Allergies Reviewed at 07/12/2025 - :24 (ET) Comments: 45 y.o male complains of Weakness, Dizziness Patient self referring PMH vertigo, static inversus, afib Patients symptoms started this morning after his coffee which includes dizziness like Vertigo took meclizine this morning at 6:00am denies any shortness of breath endorses palpitations. able to speak in full sentences no confusion no unilateral weakness or facial droop.no visual changes currently. when dizzy he states he feels like his vision feels nauseated no vomiting or loose stools Went to the bathroom this morning and almost felt like fainting. denies any kidney disease and on warfarin. requesting insted assessment I provided information on the mobile health provider response time and advised the patient and/or caregiver to monitor reported signs and symptoms. I discussed the warning signs of when to seek emergency care. .................. .................. .................. .................. .................. .................. .................. ............... Production Wood Craftsman Note From Sunshine Blum: Sent to a call for a pt complaining of light-headedness. SC8 arrives on scene, pt is alert and oriented, airway is patent. 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 Pt states he was evaluated one week ago at [place] [facility] for vertigo. Pt states he had a neg cardiac eval. Pt states he drank coffee this morning at approx 5:45, then 30 min later, started having the following symptoms: vertigo/light-head edness, blurry vision, and intermittent nausea. Pt denies cisneros, blurry vision, cp, sob, vomiting, diarrhea, abd pain, fever, or loc. Pt states they took Meclizine and symptoms have decreased, but are still present. Pt has been eating/drinking and states symptoms are the same today as usual with vertigo. (sitting) BP:112/72, P:86, RR:18, SpO2:97% RA, T:98.3; (standing) BP:109/68, P:76; Head: unremarkable; Lung sounds: clear bilaterally; Abdomen: soft, non-tender, no distention; Back: unremarkable; Extremities: unremarkable; Skin: pink, warm, dry; 12 lead ECG: uploaded to [facility]; [facility] consulted and pt is advised to rest, stay hydrated, move positions slowly, and continue taking Meclizine. Pt has follow up appt with PCP on 07/19. Pt will follow up with PCP. Red flags discussed. Pt has no further questions. .................. .................. .................. .................. .................. .................. .................. ............... [facility] Consulted: Hunter Aguirre .................. .................. .................. .................. .................. .................. .................. ............... Disposition: Fulfilled Hunter Aguirre MD [address] [facility], [place], [phone], [facility] 07/13/2025 20:35:06
--- OUTSIDE RECORDS SUMMARY | 2025-07-19 22:38 | XMS_ITS | Encounter Summary ---
Author Organization [facility] Address [address] [place] [address] Phone Care Team Providers Care Fish Peddler Name Role Phone Unavailable Primary Care Provider Unavailabl e Reason for Visit * Reason Onset Date Comments Hernia Intake Form 01/31/2022 Encounter Details Date Type Department Care Team ([facility] st Contact Info) Description 01/31/2022 Telephone [facility] [address] [place] [id number] Monae [email or web address] Hernia Intake Form Social History Tobacco Use [...] It is not the complete legal health record.[facility]
--- OUTSIDE RECORDS SUMMARY | 2025-07-19 22:38 | XMS_ITS | Data Portability ---
Author Organization [employer], [facility] [employer] [facility] Address [address] [place] [address] Care Team Providers Care Guardian Family Member Name Role Phone HIM [facility] OTHER [facility] Primary Care Provider Assessment Encounter Date Assessment Date Assessment LastModified by Organization Details LastModified Time 03/29/2025 03/29/2025 I provided real -time medical direction via phone for this encounter, and was available for additional phone based assistance as needed. I have reviewed and agree with the Assessment and Plan as documented by the Market Stall Vendor. We discussed the diagnostic uncertainty of home [...] to call 911- verbalized understanding of instruction [email or web address] Not available 03/29/2025 11:18:48 07/04/2025 07/04/2025 I provided real -time medical direction via phone for this encounter and was available for additional phone-based assistance as needed. I have reviewed and agree with the Assessment and Plan as documented by the Market Stall Vendor. Patient given the opportunity to ask questions. As per above, patient with vertigo. Recently went to the ED. Has been prescribed but is not taking 3 times daily. Feels better now and is taking the medication as prescribed with improvement overall symptoms. He is currently asymptomatic. Per design engineer agricultural equipment on the scene, vital signs are stable patient is afebrile Please read the design engineer agricultural equipment note for their exam findings. Impression: Vertigo on meclizine Plan: Follow-up with PCP. Take meclizine 3 times daily as prescribed. Red flags discussed is when to recall the service or seek a higher level of care Allergies: Reviewed We discussed the diagnostic uncertainty of home visits and the risk associated with this. In this case, the patient and I felt this to be an acceptable and reasonable amount of risk given the benefit of avoiding an ED visit. We discussed the need to seek care urgently/emergen tly in the setting of any new or worsening serious symptoms [email or web address] Not available 07/04/2025 17:27:42 07/12/2025 07/12/2025 I have reviewed and agree with the assessment and plan as documented by the design engineer agricultural equipment. I provided real-time medical direction for this encounter and was immediately available to provide additional phone-based assistance as needed. History as noted in EMR and by design engineer agricultural equipment. I would add / emphasize: Pt w/ [...] . Imaging electroc ardiogra m 2024 025 pallfather [facility], [address] [place] [address], [phone] 07/12/2025 15:12:09 Medication Orders None recorded . Patient TargetsNo targets recorded. Patient InstructionsNo instructions recorded. Reason for Referral None Reported. Results Created Date Observation Date Name Description Value Unit Range Abnormal Flag Note LastModifiedBy Organization Detail LastModifiedTime 07/12/20 25 07/12/2025 palak riddle am No observ ation record ed. [email or web address] [address], [address] 07/12/2025 18:06:16 07/19/20 25 elect renetta diogr am No observ ation record ed. [email or web address] [address], [place], [address] 07/19/2025 21:07:44 Result Notes None recorded. Medical Equipment None Reported. Allergies Allergen ID Allergen Name Allergen Category Reaction Reaction Severity Criticality Documentation Date Start Date Code Code System Note Provider Name and Address Organization Details Recorded Time 48270 Product containin g penicilli n (product) medicatio n Not available Not available Not available 03/29/2025 25255 8001 SNOMED Not Available [employer] - production [...] /min 98 % 120/76 mm[Hg] Not Available [employer] 5 10:58:16 Date Recorded Respiratory rate Heart rate Oxygen saturation Body temperature Systolic And Diastolic Provider Name and Address Organization Details Last Updated DateTime 5 16 /min 83 /min 98 % 98.1 [degF] 110/62 mm[Hg] Not Available [employer] 5 17:24:49 Date Recorded Body temperature Oxygen saturation Respiratory rate Heart rate Body weight Body height Heart rate Systolic And Diastolic Systolic And Diastolic Provider Name and Address Organization Details Last Updated DateTime 5 98.3 [degF] 97 % 18 /min 76 /min 96924.5 6 g 175.26 cm 86 /min 109/68 mm[Hg] 112/72 mm[Hg] Not Available [employer] 5 11:38:20 Date Recorded Oxygen saturation Body temperature Respiratory rate Heart rate Systolic And Diastolic Provider Name and Address Organization Details Last Updated DateTime 5 96 % 98.4 [degF] 18 /min 83 /min 104/64 mm[Hg] Not Available [employer] 5 20:22:46 Social History None recorded. Functional Status None recorded. Mental Status None recorded. Family History Nothing Reported. Medical History No medical history recorded. Past Encounters Encounter ID Performer Location Encounter Start Date Encounter Closed Date Diagnosis/Indication Diagnosis SNOMED-CT Code Diagnosis ICD10 Code Diagnosis IMO Codes Diagnosis Note [id number] No Gunter MD [address] [address] 03/29/2025 10:58:09 03/30/2025 13:19:35 Acute diarrhea 401613395 R19.7 45032 clear liquids- stay hydrated/ BRAT dietOffere d patient COVID and flu although it might be too early to turn positive as he has no other symptoms/a nd lab work which the patient declined. Advised to call us back if he develops worsening symptoms wants another visit and red flags reviewed with the patient by the medic [id number] Renetta Fernandez MD [address] [address] 07/04/2025 17:24:46 07/04/2025 22:15:50 Vertigo [id number] R42 30802 [id number] Hunter Aguirre MD [address] [address] 07/12/2025 11:24:59 07/14/2025 11:57:41 Vertigo [id number] R42 27863 Health Concerns Section Related Observation LastModified by Organization Detai ls LastModified Time None Recorded Concern Status LastModified by Organization Details LastModified Time None Recorded Advance Directives Directive None Recorded Payers Insurance Date Sequence Insurance Name Policy Number Policy Delgado Covered Member ID Delgado Member ID Guarantor Name 07/19/2025 1 [facility] - DOS ON OR AFTER 2022 - DUAL ELIGIBLE - [employer] OPTIONS AND ONE CARE (MEDICARE REPLACEMENT/AD VANTAGE - HMO) Jonh Libia [id number] Jonh Libia Notes Date Note Type Note Provider Name and Address Organization Details Recorded Time 5 text/html ROS as noted in the HPI [...] ....................... ....................... ....................... ....................... ....................... ....................... ... Market Stall Vendor Note From Gerber Dos Santos: Dispatched to [...] PERRL, +CMSx4, -edema/swelling, afebrile. Pt was assessed. C consulted. Red flags discussed. ALL times are approx. ....................... ....................... ....................... ....................... ....................... ....................... ... [facility] Consulted: No Gunter ....................... ....................... ....................... ....................... ....................... ....................... ... Disposition: Fulfilled No Gunter MD [address] [place] [address],[address], [place], [address], [employer] 03/29/2025 23:36:02 5 text/html CRC Nurse Triage Notes (Jasmin Lucero): Reason For Request: vertigo/racing heart Patient Reports: Palpitations, feeling dizzy; Weakness/tachycardia Denies: History of Heart Attack, in the setting of active chest pain Active Chest pain, radiates to neck jaw and or arm Diaphoretic/Sweating Describes as c rushing Sudden onset of nausea/Vomiting and shortness of breath. Shortness of Breath Unable to speak in full sentences without distress Chest pain, increased fatigue CHF history, increased swelling and edema Chief Complaints: Dizziness, Heart Rate Problems PMH: Hypertension, Arrhythmias (e.g., Atrial Fibrillation) PMH Reviewed at 07/04/2025 - : (ET) Allergies Reviewed at 07/04/2025 - (ET) Comments: 45 y.o male complains of Dizziness, Heart Rate Problems Patient self referring PMH vertigo, static inversus, afib Patients symptoms started last Friday which includes dizziness like Vertigo and racing heart. Patient has experienced this before and has been given meclizine and He has taken it with little relief this time. denies any shortness of breath endorses palpitations. Patient on Friday felt like a hart sensation like fluids rushing down from his head to his face. denies any sensitivity to light. able to speak in full sentences no confusion no unilateral weakness or facial droop.no visual changes currently. when dizzy he states he feels like his vision get blurry and feels nauseated no vomiting or loose stools mild chest pain comes and goes and does not have it currently. Went to ER and didn't wait. denies any kidney disease and on warfarin. requesting insted assessment I provided information on the mobile health provider response time and advised the patient and/or caregiver to monitor reported signs and symptoms. I discussed the warning signs of when to seek emergency care. ....................... ....................... ....................... ....................... ....................... ....................... ... Market Stall Vendor Note From Gerber Dos Santos: Dispatched to the call address for the male with dizziness. Pt states on Friday he went to the ED because he had a bad cause of vertigo. He states he is prescribed Meclizine but has only been taking it once or twice a day instead of the three he is prescribed. Pt states he still has some very mild dizziness on and off but otherwise feels to his baseline. He denies any recent illness, n/v/d, chest pain, headaches, vision changes or other complaints at this time. Pt was found opening door, CAOx4, airway open and patent, breathing non labored, able to speak in full sentences, -JVD, -HEENT, skin PWD with good turgor, mucous membranes pink and moist, pupils PERRL, abd soft non tender/distended, +CMSx4, -edema/swelling, Pt with normal gait. Vertigo Pt was assessed. C consulted. Red flags discussed. ALL times are approx. ....................... ....................... ....................... ....................... ....................... ....................... ... [facility] Consulted: Renetta Fernandez ....................... ....................... ....................... ....................... ....................... ....................... ... Disposition: Antony Fernandez MD [address] [facility],[address], [place], [address], [place] [employer] 07/04/2025 19:52:31 5 text/html CRC Nurse Triage Notes (Jasmin Lucero): Reason For Request: light headed Patient Reports: Palpitations, feeling dizzy Denies: History of Heart Attack, in the setting of active chest pain Active Chest pain, radiates to neck jaw and or arm Diaphoretic/Sweating Describes as c rushing Sudden onset of nausea/Vomiting and shortness of breath. Shortness of Breath Unable to speak in full sentences without distress Chest pain, increased fatigue CHF history, increased swelling and edema Weakness/tachycardia Chief Complaints: Weakness, Dizziness PMH: Hypertension, Arrhythmias (e.g., Atrial Fibrillation) PMH Reviewed at 07/12/2025 - : (ET) Allergies Reviewed at 07/12/2025 - (ET) Comments: 45 y.o male complains of [...] any kidney disease and on warfarin. requesting [employer] assessment I provided information on the mobile health provider response time and advised the patient and/or caregiver to monitor reported signs and symptoms. I discussed the warning signs of when to seek emergency care. ....................... ....................... ....................... ....................... ....................... ....................... ... Market Stall Vendor Note From Sunshine Blum: Sent to a call for a pt complaining of light-headedness. SC8 arrives on scene, pt is alert and oriented, airway is patent. 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 Pt states he was evaluated one week ago at [place] ED for vertigo. Pt states he had a neg cardiac eval. Pt states he drank coffee this morning at approx 5:45, then 30 min later, started having the following symptoms: vertigo/light-headednes s, blurry vision, and intermittent nausea. Pt denies [...] warm, dry; 12 lead ECG: uploaded to [employer]; [facility] consulted and pt is advised to rest, stay hydrated, move positions slowly, and continue taking Meclizine. Pt has follow up appt with PCP on 07/19. Pt will follow up with PCP. Red flags discussed. Pt has no further questions. ....................... ....................... ....................... ....................... ....................... ....................... ... [facility] Consulted: Hunter Aguirre ....................... ....................... ....................... ....................... ....................... ....................... ... Disposition: Antony Hunter Aguirre MD [address] [facility],[address], [place], [address], [employer] 07/13/2025 20:35:06 5 text/html ROS as noted in the [facility] CRC Nurse Triage Notes (Leonela Williamson): Reason For Request: walked up stairs, feeling fatigued, nauseous, lightheaded and had an elevated heartrated. also had a bloody nose Patient Reports: Shortness of Breath; Palpitations, feeling dizzy; Weakness/tachycardiaDen ies: History of Heart Attack, in the setting of active chest pain Active Chest pain, radiates to neck jaw and or arm Diaphoretic/Sweating Describes as c rushing Sudden onset of nausea/Vomiting and shortness of breath. Unable to speak in full sentences without distress Chest pain, increased fatigue CHF history, increased swelling and edema Chief Complaints: Breathing Problems, Dizziness, Nausea / VomitingPMH: Hypertension, Arrhythmias (e.g., Atrial Fibrillation)PMH Reviewed at 07/19/2025 - 17:16 (ET)Allergies Reviewed at 07/19/2025 - 17:16 (ET)Comments: 45 y.o male c/o SOBE, fatigued, feeling vomitlike , heartrate going fast.hx of When the heart is on the right side member statesTakes Coumadin. c/o sharp pain in chest during episodeSymptoms continue- SOB, dizziness, lightheadedness, little nauseaMember sounds anxious but no acute distress, speaking in clear sentences. I provided information on the mobile health provider response time and advised the patient and/or caregiver to monitor reported signs and symptoms. I discussed the warning signs of when to seek emergency care. ....................... ....................... ....................... ....................... ....................... ....................... ... Market St[employer] Vendor Note From Berkley Jones: Pt was sitting on his bed upon arrival. A/O x3, pt is pink/warm/dry and not in any immediate respiratory distress. Pt is known as having his heart on the right side of his chest and Afib. Pt states he was s kipping up the stairs of his home at around 4 pm today. When he got to the top of the stairs, he felt his heart bounding and began experiencing chest pain, SOB, dizziness, and radiating pain up into neck. Pt states after about an hour he took an additional 50mg of his metoprolol. Pt stated about 30 minutes after that he felt better. Pt currently has the pain in his neck which he describes as d ull but denies any current CP, SOB, and dizziness. Pt denied any diaphoresis, arm pain, or jaw pain. Vitals as noted. Bilateral breath sounds clear. And EKG was performed and results uploaded. No ST elevations were noted. [facility] contacted and pt advised to take 324mg of aspirin and be evaluated in the ER. Pt refused aspirin but agreed to be evaluated in the ER. Pt said he would drive himself as [facility] is r ight up the road from his house. [facility] was notified and call was cleared. [facility] Lab Orders: electrocardiogram: Performed ....................... ....................... ....................... ....................... ....................... ....................... ... [facility] Consulted: Alessandra Waldron ....................... ....................... ....................... ....................... ....................... ....................... ... Disposition: Fulfilled Not Available Not Available Not Available
--- OUTSIDE RECORDS SUMMARY | 2025-07-19 22:38 | XMS_ITS | Continuity of Care Document ---
Author Organization [facility], [place] [employer] [facility] Address [address] [place] [address] Care Team Providers Care Photographer Still Name Role Phone HIM [facility] OTHER [facility] Primary Care Provider Assessment Encounter Date Assessment Date Assessment LastModified by Organization Details LastModified Time 07/04/2025 07/04/2025 I provided real -time medical direction via phone for this encounter and was available for additional phone-based assistance as needed. I have reviewed and agree with the Assessment and Plan as documented by the Hairspring Ii Inspector. Patient given the opportunity to ask questions. As per above, patient with vertigo. Recently went to the ED. Has been prescribed but is not taking 3 times daily. Feels better now and is taking the medication as prescribed with improvement overall symptoms. He is currently asymptomatic. Per continuity editor on the scene, vital signs are stable patient is afebrile Please read the continuity editor note for their exam findings. Impression: Vertigo [...] We discussed the need to seek care urgently/emerg ently in the setting of any new or worsening serious symptoms [email or web address] Not available 07/04/2025 17:27:42 Plan of Treatment Reminders Order Date Submit Date Provider Last Modified By Organization Details Last Modified Time Details Appointments Urgent Care 2024 05:10P M Not available Not available Not available Lab None recorded . Referral None recorded . Procedures None recorded . Surgeries None recorded . Imaging None recorded . Medication Orders None recorded . Patient TargetsNo targets recorded. Patient InstructionsNo instructions recorded. Reason for Referral None Reported. Results Created Date Observation Date Name Description Value Unit Range Abnormal Flag Note LastModifiedBy Organization Detail LastModifiedTime 07/12/2007/12/2025 elect rocar diogr am No observ ation record ed. [email or web address] [address], [address] 07/12/2025 18:06:16 07/19/20 elect rocar diogr am No observ ation record ed. [email or web address] [address], [address] 07/19/2025 21:07:44 Result Notes None recorded. Medical Equipment None Reported. Allergies Allergen ID Allergen Name Allergen Category Reaction Reaction Severity Criticality Documentation Date Start Date Code Code System Note Provider Name and Address Organization Details Recorded Time 41410 Product containin g penicilli n (product) medicatio n Not available Not available Not available 03/29/2025 51081 8001 SNOMED Not Available [employer] - production [...] Available No t Available Vitals Date Recorded Respiratory rate Heart rate Oxygen saturation Body temperature Systolic And Diastolic Provider Name and Address Organization Details Last Updated DateTime 5 16 /min 83 /min 98 % 98.1 [degF] 110/62 mm[Hg] Not Available [facility] - production 17:24:49 Social History None recorded. Functional Status None recorded. Mental Status None recorded. Family History Nothing Reported. Medical History No medical history recorded. Past Encounters Encounter ID Performer Location Encounter Start Date Encounter Closed Date Diagnosis/Indication Diagnosis SNOMED-CT Code Diagnosis ICD10 Code Diagnosis IMO Codes Diagnosis Note [id number] Renetta Fernandez MD Main-inst ED Medical [facility] [address] [place] [address] 07/04/2025 17:24:46 07/04/2025 22:15:50 Vertigo [id number] R42 55011 Health Concerns Section Related Observation LastModified by Organization Detai ls LastModified Time None Recorded Concern Status LastModified by Organization Details LastModified Time None Recorded Payers Encounter Date Sequence Insurance Name Policy Number Policy Delgado Covered Member ID Delgado Member ID Guarantor Name 07/04/2025 1 [facility] - DOS ON OR AFTER 2022 - DUAL ELIGIBLE - [employer] OPTIONS AND ONE CARE (MEDICARE REPLACEMENT/AD VANTAGE - HMO) Jonh Libia [id number] Jonh Libia Notes Date Note Type Note Provider Name and Address Organization Details Recorded Time 07/04/2025 text/html CRC Nurse Triage Notes (Jasmin Lucero): Reason For Request: vertigo/racing heart Patient Reports: Palpitations, feeling dizzy; Weakness/tachycard ia Denies: History of Heart Attack, in the [...] Atrial Fibrillation) PMH Reviewed at 07/04/2025 - 14:27 (ET) Allergies Reviewed at 07/04/2025 - 14: (ET) Comments: 45 y.o male complains of [...] .................. .................. .................. .................. .................. .................. ............... Hairspring Ii Inspector Note From Gerber Dos Santos: Dispatched to [...] with normal gait. Vertigo Pt was assessed. [facility] consulted. Red flags discussed. ALL times are approx. .................. .................. .................. .................. .................. .................. .................. ............... [facility] Consulted: Renetta Fernandez .................. .................. .................. .................. .................. .................. .................. ............... Disposition: Fulfilled Renetta Fernandez MD [address] [facility],[address], [place], [address], [facility] - VALENTIN CHEN 07/04/2025 19:52:31
--- OUTSIDE RECORDS SUMMARY | 2025-07-19 22:38 | XMS_ITS | Clinical Summary ---
Author Organization [facility] Address [address] [place] [phone] Phone Care Team Providers Care Customer Success Specialist Name Role Phone Unavailable Primary Care Provider [...] Devices Not on file Insurance SANDY DRISCOLL [id number] CARE MEDICARE REPLACEMENT CARE MEDICARE REPLACEMENT CARE MEDICARE REPLACEMENT [facility] ONE CARE MEDICARE REPLACEMENT Additional Source Comments The information contained in this document represents components of the legal health record. It is not the complete legal health record.[facility]
--- NOTE | 2025-07-19 22:43 | ED.CHESTPAIN ---
HPI - Chest Pain General Chief Complaint: Chest Pain Stated Complaint: chest pain Time Seen by Provider: 07/20/25 02:12 Source: patient Limitations: no limitations History of Present Illness ED Provider: Alina Guadalupe PA-C HPI narrative: 45-year-old male with a history of known AFib on warfarin, cardiomyopathy, complex congenital heart disease, peripheral vertigo presents with palpitations. Patient states he was walking upstairs when he developed palpitations, no chest pain, he felt somewhat short of breath and dizzy. Denies diaphoresis, nausea vomiting, recent cough or cold symptoms. He does not use cocaine, he avoids caffeine, no excessive alcohol use. Related Data Home Medications ?Medication ?Instructions ?Recorded ?Confirmed warfarin 5 mg tablet 5 mg PO DAILY 05/29/20 08/13/22 Held on 05/30/20. Instructions: Resume on 06/02/20. Hold until INR <4 sacubitril 24 mg-valsartan 26 mg 1 tab PO BID 11/13/21 08/13/22 tablet (Entresto) metoprolol tartrate 50 mg tablet 50 mg PO .COMPLEX 08/13/22 08/13/22 Previous Rx's ?Medication ?Instructions ?Recorded meclizine 25 mg tablet 25 mg PO Q8H PRN dizziness #30 tabs 05/30/20 metoprolol succinate 200 mg 200 mg PO DAILY #30 tabs 05/30/20 tablet,extended release 24 hr lorazepam 0.5 mg tablet (Ativan) 0.5 mg PO BEDTIME PRN anxiety #10 08/10/22 tabs metoprolol succinate 200 mg 200 mg PO DAILY #90 tabs 10/18/24 tablet,extended release 24 hr meclizine 25 mg tablet 25 mg PO TID PRN dizziness #20 tabs 11/14/24 Allergies Allergy/AdvReac Type Severity Reaction Status Date / Time Penicillins Allergy Unknown RASH,NAUSEA Verified 07/19/25 22:33 ,VOMITING Review of Systems Review of Systems: Yes all other systems are reviewed and are negative Constitutional: Constitutional: Denies fatigue and Denies fever(s) ENT: Denies vertigo and Reports dizziness Cardiovascular: Cardiovascular: Denies chest pain, Denies syncope, Reports palpitations and Reports dyspnea Respiratory: Respiratory: Denies cough and Reports dyspnea Gastrointestinal: Gastrointestinal: Denies abdominal pain, Denies nausea and Denies vomiting Neurologic: Denies vertigo, Reports dizziness and Denies syncope Endocrine: Endocrine: Denies fatigue and Reports palpitations [facility] Past Medical History Attestation statement: The following information was validated with the patient. Medical History Cardiomyopathy Dextrocardia Afib Aortic valve disease Surgical History History of open heart surgery Family History Family History Mother No problems noted. Father No problems noted. Social History Social History Household Members: Spouse Housing: Apartment Do you presently have visiting nurse or other home services: No Alcohol intake: never Patient Tobacco Use Status: Never used Tobacco service: No Current occupational status: disabled Physical Exam Vital Signs: Vital Signs: Last Vital Signs Temp 98.1 F 07/19/25 22:30 Pulse 97 07/19/25 22:30 Resp 16 07/19/25 22:30 BP 106/60 07/19/25 22:30 Pulse Ox 95 07/19/25 22:30 O2 Del Method Room Air 07/19/25 22:30 BMI result Body Mass Index 28.4 Const: Other: Alert well-appearing Orientation/consciousness: patient oriented x3 HEENT: Other: No nystagmus Resp: Effort & Inspection: normal respiratory effort Cardio: Other: Normal peripheral perfusion Skin: Other: Warm dry no rash Neuro: General: patient oriented x3, gait normal, no focal motor deficits and CN's II-XI intact bilaterally Psych: Other: Cooperative Course Course Course Narrative: RME, this is a rapid medical exam performed by Alessandro Storm please refer to primary provider for complete H&P- 45-year-old male presents for evaluation of chest pain. Symptoms started 6 hours ago. Plan for cardiac workup Medical Decision Making Medical Decision Making MDM Narrative: 45-year-old male with a history of known AFib on warfarin, cardiomyopathy, complex congenital heart disease, peripheral vertigo presents with palpitations. Patient states he was walking upstairs when he developed palpitations, no chest pain, he felt somewhat short of breath and dizzy. Denies diaphoresis, nausea vomiting, recent cough or cold symptoms. He does not use cocaine, he avoids caffeine, no excessive alcohol use. Problem: AFib, cardiomyopathy, congenital heart disease, known vertigo History: Per patient I have considered the following differential diagnoses: AFib RVR, ACS, vertigo, dehydration, electrolyte abnormality, anemia Plan: Screening labs including cardiac enzymes EKG obtained from triage, everything is negative thus far. I explained to the patient that it can be normal to have palpitations, with a an arrhythmia such as AFib. In regard to the lightheaded dizziness, he was symptomatic when he had palpitations, it is not consistent with vertigo today. There was no known trigger at this time he is not clinically dehydrated he is not anemic and he has no electrolyte abnormalities. Sending with home care instructions. I have independently reviewed the following tests: Labs: Troponin x2 flat , no leukocytosis, not anemic, no electrolyte abnormality, not clinically dehydrated renal function is at baseline EKG: AFib, rate of 92, no ischemic changes no ectopy, no change was found when compared to prior study from 2022 Differential Diagnosis Differential Diagnoses: The differential diagnosis associated with the presentation includes See [facility] Admission/Observation Consideration of admission/observation: Escalation of care including admission/observation considered Not applicable Lab Data [facility] Lab Attestation statement: I reviewed the patient's lab results. 07/19/25 22:38 07/19/25 22:38 Labs: Lab Results 07/19/25 07/20/25 Range/Units 22:38 01:27 WBC 6.1 (4.8-10.8) X10*3/uL RBC 4.89 (4.60-5.80) X10*6/uL Hgb 13.3 L (14.0-18.0) g/dl Hct 40.5 L (42.0-52.0) % MCV 82.8 (80.0-98.0) fL MCH 27.2 (27.0-33.0) pg MCHC 32.8 (31.0-36.0) g/dl RDW 13.0 (11.0-16.0) % Plt Count 175 (160-400) X10*3/uL MPV 9.8 (9.4-12.4) fL Immature Gran % (Auto) 0.2 (0.0-0.4) % Neut % (Auto) 54.1 (45-73) % Lymph % (Auto) 30.5 (20-40) % Gosper % (Auto) 10.7 (2-11) % Eos % (Auto) 3.8 (0-4) % Baso % (Auto) 0.7 (0-2) % Lymph # (Auto) 1.9 (1.2-4.9) X10*3/uL Gosper # (Auto) 0.7 (0.1-1.2) X10*3/uL Eos # (Auto) 0.2 (0.0-0.4) X10*3/uL Baso # (Auto) 0.0 (0.0-0.2) X10*3/uL Abs Immat Gran (auto) 0.01 (0.00-0.03) X10*3/uL Absolute Neuts (auto) 3.3 (2.0-8.3) x10*3/uL Absolute Nucleated RBC 0.000 (0.0-0.012) X10*3/uL Nucleated RBC % (auto) 0.0 (0.0-0.2) /100WBC Sodium 140 (135-145) mmol/L Potassium 4.6 (3.3-5.1) mmol/L Chloride 108 (96-108) mmol/L Carbon Dioxide 23 (22-29) mmol/L Anion Gap 14 (12-20) BUN 17 H (9-16) mg/dL Creatinine 0.83 (0.5-1.4) mg/dL Estim Creat Clear Calc 120.2 Estimated GFR > 60 Random Glucose 93 (60-115) mg/dL Calcium 9.5 (8.4-10.2) mg/dL Magnesium 2.1 (1.6-2.6) mg/dL Total Bilirubin 0.4 (0.0-1.0) mg/dL AST 27 (5-37) U/L ALT 24 (0-40) U/L Alkaline Phosphatase 89 (39-117) U/L Troponin I High Sens 3.0 < 2.7 (<3.5-35.0) ng/L Total Protein 7.6 (6.5-8.0) g/dL Albumin 4.6 (3.5-5.0) g/dL Lipase 36 (8-78) U/L Independent Interpretation I performed an independent interpretation of an: EKG Discharge Plan Discharge Clinical Impression: Atrial fibrillation Qualifiers: Atrial fibrillation type: longstanding persistent Qualified Code(s): I48.11 - Longstanding persistent atrial fibrillation Patient Disposition: Home, Self-Care Instructions: A-fib (Atrial Fibrillation) (ED) Additional Instructions: It can be normal to have palpitations associated when you an arrhythmia otherwise known as AFib. 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 Be sure to maintain proper hydration, avoid stimulants such as caffeine or cocaine, alcohol, these substances can induce AFib. Today, there were no concerning changes on the EKG in 2 cardiac enzymes were negative. Prescriptions: No Action warfarin 5 mg Tablet 5 mg PO DAILY metoprolol succinate 200 mg tablet extended release 24 hr 200 mg PO DAILY Qty: 30 0RF Rx Instructions: replaces prior dose of 100 mg daily; discontinue diltiazem meclizine 25 mg Tablet 25 mg PO Q8H PRN (Reason: dizziness) Qty: 30 0RF Entresto 24-26 mg tablet 1 tab PO BID metoprolol tartrate 50 mg tablet 50 mg PO .COMPLEX Rx Instructions: 1 tablet AM, 2 tablets PM 50 mg orally; lorazepam [Ativan] 0.5 mg tablet 0.5 mg PO BEDTIME PRN (Reason: anxiety) Qty: 10 0RF metoprolol succinate 200 mg tablet extended release 24 hr 200 mg PO DAILY Qty: 90 0RF meclizine 25 mg tablet 25 mg PO TID PRN (Reason: dizziness) Qty: 20 0RF Interventions: ED Discharge Assessment Last Done: 07/20/25 03:02 Print Language: Kazakh
[2025-07-19 22:44] LABS: Hematocrit 40.5 % (42.0-52.0); Hemoglobin 13.3 g/dl (14.0-18.0); Imm Gran Abs Auto 0.01 X10*3/uL (0.00-0.03); Imm Gran Pct Auto 0.2 % (0.0-0.4); Lymphocytes Absolute Auto 1.9 X10*3/uL (1.2-4.9); MANUAL DIFF FLAG NO; Mean Corpuscular HGB Conc 32.8 g/dl (31.0-36.0); Mean Corpuscular Hemoglobin 27.2 pg (27.0-33.0); Mean Corpuscular Volume 82.8 fL (80.0-98.0); NRBC Abs Auto 0.000 X10*3/uL (0.0-0.012); NRBC Pct Auto 0.0 /100WBC (0.0-0.2); Platelet Count 175 X10*3/uL (160-400); Red Blood Count 4.89 X10*6/uL (4.60-5.80); White Blood Count 6.1 X10*3/uL (4.8-10.8)
[2025-07-19 22:59] LABS: Alanine Aminotransferase 24 U/L (0-40); Albumin Level 4.6 g/dL (3.5-5.0); Alkaline Phosphatase 89 U/L (39-117); Anion Gap 14 (12-20); Blood Urea Nitrogen 17 mg/dL (9-16); Calcium 9.5 mg/dL (8.4-10.2); Carbon Dioxide 23 mmol/L (22-29); Chloride 108 mmol/L (96-108); Creatinine Clr Calc Pharmacy 120.2; Estimated Glomerular Filt Rate > 60; Lipase 36 U/L (8-78); Magnesium 2.1 mg/dL (1.6-2.6); Potassium 4.6 mmol/L (3.3-5.1); Sodium 140 mmol/L (135-145); Total Protein 7.6 g/dL (6.5-8.0)
[2025-07-19 23:05] LABS: Troponin-I High Sensitivity 3.0 ng/L (<3.5-35.0)
[2025-07-19 23:10] LABS: Aspartate Amino Transferase 27 U/L (5-37)
[2025-07-20 02:01] LABS: Troponin-I High Sensitivity < 2.7 ng/L (<3.5-35.0)
[2025-07-20 03:00] VITALS: BP 100/80; PULSE 71; RESP 20; TEMP 36.7; O2SAT 98
[2025-07-20 03:02] VITALS: BP 100/80; PULSE 71; RESP 20; TEMP 36.7; O2SAT 98
== END 2025-07-20 03:03 | disposition home or self-care (01) ==
PROVIDERS: Physician Assistant; Emergency Provider Emergency Medicine
DX: I48.11 Longstanding persistent atrial fibrillation (principal); R00.2 Palpitations; R06.02 Shortness of breath; Z79.01 Long term (current) use of anticoagulants; Z79.899 Other long term (current) drug therapy
CPT/HCPCS: 36415; 80053; 83690; 83735; 84484; 85025; 93005; 99284; 99285

== ENCOUNTER → 2025-07-19 22:10 | Outpatient (BNV) | payer OTHER, SELFPAY | PROVIDERS: Emergency Provider Emergency Medicine; Visit Provider Internal Medicine | DX: I48.91 Unspecified atrial fibrillation (principal) | CPT/HCPCS: 93010 ==